=== PATIENT | female | born 1970 | race Caucasian/White ===

== ENCOUNTER → 2017-07-28 | Outpatient (CLI) | payer OTHER | END | disposition home or self-care (01) | LOC: MAMMO 14:31 | DX: Z12.31 Encounter for screening mammogram for malignant neoplasm of breast (principal) | CPT/HCPCS: 77063; 77067 ==

== ENCOUNTER 2020-01-17 14:27 | Inpatient (IN) | payer MEDICAID, OTHER ==
[~2020-01-17] VITALS: Ht 165.1 cm; Wt 113.1 kg
--- NOTE | 2020-01-17 14:45 | RAD ---
CT CODE STROKE HEAD WO Date: 01/17/2020 2:28 PM Clinical Indication: facial droop, arm weakness Comparison: None. Technique: 5 mm axial tomographic images were obtained of the head without contrast. These were viewed on brain and bone windows. One or more of the following dose reduction techniques were utilized: Automated exposure control (AEC), Adjustment of mA and/or kV according to patient size, Use of iterative reconstruction technique such as ASiR, CT scan done according to ALARA and image gently/image wisely Findings: The brain parenchyma is normal in attenuation. No intra- or extra-axial mass or fluid collection. No acute hemorrhage. The ventricles are normal in size, shape, and morphology. The goetz-white matter junction is normal. The subarachnoid cisterns are patent. The visualized paranasal sinuses are normal. The visualized portions of the orbits and globes are normal. The mastoid air cells are clear. The surgical clinical reviewer topogram shows no lytic lesion or fracture. Impression: No acute hemorrhage or large territory goetz-white loss. FOR INTERNAL CODING PURPOSES Critical result: Findings discussed with VENANCIO PIERCE at 01/17/2020 2:40 PM. RESULT CODE: (C) Electronically signed by: Dereck Miranda MD (01/17/2020 2:41 PM) [id number]
[2020-01-17 14:52] LABS: BASO # 0.1 x10^3/uL (0.0-0.2); BASO % 1 % (0-3); EOS # 0.2 x10^3/uL (0.0-0.7); EOS % 2 % (0-3); HEMATOCRIT 50.5 % (36.0-47.0); HEMOGLOBIN 17.6 g/dL (12.0-15.5); LYMPH % 32 % (24-48); MEAN CORPUSCULAR HEMOGLOBIN 32 pg (25-35); MEAN CORPUSCULAR HGB CONC 35 g/dL (31-37); MEAN CORPUSCULAR VOLUME 92 fL (79-100); MONO # 0.5 x10^3/uL (0.0-1.1); MONO % 6 % (0-9); NEUT # 5.4 x10^3/uL (1.8-7.7); NEUT % 58 % (31-73); PLATELET COUNT 284 x10^3/uL (140-400); RED BLOOD COUNT 5.51 x10^6/uL (3.50-5.40); RED CELL DISTRIBUTION WIDTH 12.6 % (11.5-14.5); WHITE BLOOD COUNT 9.3 x10^3/uL (4.0-11.0)
--- NOTE | 2020-01-17 14:53 | PHYS DOC ---
Past Medical History Past Medical History: Anxiety, Depression, High Cholesterol, Hypertension Past Surgical History: No Surgical History Smoking Status: Current Every Day Smoker Alcohol Use: None Drug Use: Marijuana General Adult EDM: Chief Complaint: NEURO SYMPTOMS/DEFICITS HPI: HPI: 49-year-old female presents via EMS as code stroke with report of right arm and leg weakness, slurred speech, and right facial droop that was noticed upon waking at 1330. Patient reports she had gone down for a nap at approximately 1000 and awoke with the symptoms. Denies prior history of similar symptoms. Denies trauma. Denies headache. Denies any fever or chills. Review of Systems: Review of Systems: Constitutional: Denies fever or chills Eyes: Denies redness or eye pain HENT: Denies nasal congestion or sore throat Respiratory: Denies cough or shortness of breath Cardiovascular: Denies chest pain or palpitations GI: Denies abdominal pain, nausea, or vomiting : Denies dysuria or hematuria Musculoskeletal: Denies back pain or joint pain Integument: Denies rash or skin lesions Neurologic: Reports slurred speech, right arm and leg weakness, and right arm and leg numbness. Complete systems were reviewed and found to be within normal limits, except as documented in this note. Current Medications: Current Medications Medications (Trade) Dose Ordered Sig/Diony Start Time Stop Time Status Last Admin Dose Admin Aspirin (Julia Aspirin) 325 mg 1X ONCE 01/17/20 15:00 01/17/20 15:01 UNV Physical Exam: PE: Constitutional: Well developed, well nourished, no acute distress, non-toxic appearance HENT: Normocephalic, atraumatic Eyes: EOMI, PERRL, conjunctiva normal, no discharge Neck: Normal range of motion, no tenderness, supple Lungs & Thorax: No respiratory distress, equal chest rise and fall Abdomen: Soft, no tenderness Skin: Warm, dry, no erythema, no rash Back: No tenderness, no CVA tenderness Extremities: No tenderness, ROM intact, no edema Neurologic: Alert and oriented X 3, mild dysarthria appreciated, mild droop to right corner of mouth, effort but inability to lift both right upper extremity and lower extremity, decreased sensation to right face, arm, and leg noted in comparison to left side Psychologic: Affect anxious, judgment normal EKG: EKG: @ 1449 NSR at 83bpm, NO ST elevation, QRS 86ms, QT/QTc 412/485ms Radiology/Procedures: Radiology/Procedures: PROCEDURE: CT CODE STROKE HEAD WO CT CODE STROKE HEAD WO Date: 01/17/2020 2:28 PM Clinical Indication: facial droop, arm weakness Comparison: None. Technique: 5 mm axial tomographic images were obtained of the head without contrast. These were viewed on brain and bone windows. One or more of the following dose reduction techniques were utilized: Automated exposure control (AEC), Adjustment of mA and/or kV according to patient size, Use of iterative reconstruction technique such as ASiR, CT scan done according to ALARA and image gently/image wisely Findings: The brain parenchyma is normal in attenuation. No intra- or extra-axial mass or fluid collection. No acute hemorrhage. The ventricles are normal in size, shape, and morphology. The goetz-white matter junction is normal. The subarachnoid cisterns are patent. The visualized paranasal sinuses are normal. The visualized portions of the orbits and globes are normal. The mastoid air cells are clear. The turret punch operator topogram shows no lytic lesion or fracture. Impression: No acute hemorrhage or large territory goetz-white loss. FOR INTERNAL CODING PURPOSES Critical result: Findings discussed with VENANCIO PIERCE at 01/17/2020 2:40 PM. RESULT CODE: (C) Electronically signed by: Dereck Miranda MD (01/17/2020 2:41 PM) [id number] PROCEDURE: PORTABLE CHEST 1V INDICATION: Reason: CODE STROKE / Spl. Instructions: / History: COMPARISON: None. FINDINGS: Single view of chest obtained. Cardiac silhouette is enlarged. Mild interstitial prominence bilaterally. Linear opacity left lower lung which could be from scarring or atelectasis. IMPRESSION: * No focal airspace consolidation. Electronically signed by: Gilberto Zavala MD (01/17/2020 3:57 PM) [id number] PROCEDURE: CT ANGIOGRAPHY HEAD AND NECK CT ANGIOGRAPHY HEAD AND NECK History:Reason: right sided weakness/numbness/dysarthria / Spl. Instructions: INJ 100ML OMNI 350 / History: Technique: After bolus of intravenous contrast, volumetric CT data acquisition was acquired of the head and neck. Multiplanar reconstruction images to include MIP and 3-D reconstruction images are submitted. Exposure: One or more of the following individualized dose reduction techniques were utilized for this examination: 1. Automated exposure control 2. Adjustment of the mA and/or kV according to patient size 3. Use of iterative reconstruction technique. Comparison: None Any determination of stenosis is based on NASCET criteria. Head CTA: ICA: Moderate multifocal narrowing of the left internal carotid artery at the cavernous and paraclinoid segments due to calcified plaque. Patent right internal carotid artery. No occlusion. MCA: No stenosis, occlusion or aneurysm. RA: No stenosis, occlusion or aneurysm. SEASONAL CLERK: No stenosis, occlusion or aneurysm. Basilar artery: No stenosis, occlusion or aneurysm. Distal vertebral arteries: No stenosis, occlusion or aneurysm. Partially empty sella. Secretions within the left sphenoid sinus. CT angiogram neck: Aortic arch: Conventional arch anatomy. Common carotid arteries: No stenosis, occlusion or dissection. Internal carotid arteries: No stenosis, occlusion or dissection. Mild calcified plaque within the carotid bifurcations. External carotid arteries: Patent Vertebral arteries: No stenosis, occlusion or dissection. Imaged lung apices are unremarkable. Soft tissues appear normal. Bones: No pathologic osseous lesions. Impression: 1. No arterial occlusion intracranially or within the neck. 2. Moderate multifocal narrowing of the left internal carotid artery cavernous and paraclinoid segments due to atheromatous plaque. 3. Mild atheromatous plaque within the carotid bifurcations. Electronically signed by: Amrik Gannon DO (01/17/2020 4:08 PM) [facility] Course & Med Decision Making: Course & Med Decision Making Pertinent Labs and Imaging studies reviewed. (See chart for details) Patient presents via EMS as code stroke. Patient outside the window of time of TPA as last known normal at 1000 this morning. NIHSS [address] head without acute process. EKG stable. Labs obtained and posted to chart. CTA head and neck without large vessel occlusion. Aspirin provided. Some anxiety component noted. Patient with interval improvement of symptoms during ED stay primarily with right arm and leg strength now with slight drift without touching. Patient also with improvement of slurred speech.. Patient requiring admission for further evaluation and treatment. Discussed with Dr. Cline (hospitalist) who is in agreement with admission. Discussed findings and plan with patient and family, who acknowledge understanding and agreement. Pedro Disclaimer: Pedro Disclaimer: This electronic medical record was generated, in whole or in part, using a voice recognition dictation system. Departure Departure Impression: Primary Impression: CVA (cerebral vascular accident) Qualified Codes: I63.9 - Cerebral infarction, unspecified Disposition: ADMITTED INPATIENT Admitting Physician: CHEKO Bynum) Condition: GUARDED Referrals: UMAIR PHAN (PCP) Justicifation of Admission Dx: Justifications for Admission: Justification of Admission Dx: Yes NIHSS Stroke Scale NIH Stroke Scale: NIH Stroke Scale Response (Comments) Value Level of Consciousness: 0 Alert/Responsive 0 LOC Questions: 0 Answers both correctly 0 LOC Commands: 0 Performs both tasks 0 Best Gaze: 0 Normal 0 Visual: 0 No visual loss 0 Facial Palsy: 1 Minor paralysis 1 Motor - Left Arm 0 No drift 0 Motor - Right Arm 2 Some effort 2 Motor - Left Leg 0 No drift 0 Motor: Right Leg 2 Some effort 2 Limb Ataxia: 0 Absent 0 Sensory: 1 Mid to moderate loss 1 Best Language: 0 Normal 0 Dysathria: 1 Mild to moderate 1 Extinction and Inattention: 0 Normal 0 Total 7 Critical Care Time Critical care time was 30 minutes which includes time at bedside, spent in discussion of patient's care with specialists and/or family members, with interpretation of laboratory and/or radiological studies and is exclusive of procedures. VENANCIO PIERCE DO Jan 17, 2020 14:53
[2020-01-17 14:54] LABS: BILIRUBIN,URINE NEGATIVE (NEG); CLARITY,URINE CLEAR; NITRITE,URINE NEGATIVE (NEG); PH,URINE 6.5 (<5.0-8.0); PROTEIN,URINE NEGATIVE (NEG-TRACE); UROBILINOGEN,URINE 0.2 mg/dL (0.2 mg/dL)
[2020-01-17] MEDS ORDERED: ASPIRIN 325 MG TABLET PO ONE (15:00)
[2020-01-17 15:04] LABS: COLOR,URINE STRAW
[2020-01-17 15:05] LABS: BACTERIA,URINE MODERATE /HPF (0-FEW); SQUAMOUS EPITHELIAL CELL,UR MOD /LPF
[2020-01-17 15:06] LABS: RBC,URINE 0 /HPF (0-2); WBC,URINE 0 /HPF (0-4)
[2020-01-17 15:11] LABS: CALCIUM 9.6 mg/dL (8.5-10.1); CREATININE 0.8 mg/dL (0.6-1.0); GFR 76.6; POTASSIUM 4.1 mmol/L (3.5-5.1)
--- NOTE | 2020-01-17 15:12 | EKG ---
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
[2020-01-17 15:17] LABS: ALBUMIN 3.7 g/dL (3.4-5.0); ALBUMIN/GLOBULIN RATIO 0.9 (1.0-1.7); MAGNESIUM 1.9 mg/dL (1.8-2.4); TOTAL BILIRUBIN 0.8 mg/dL (0.2-1.0); TOTAL PROTEIN 7.7 g/dL (6.4-8.2)
[2020-01-17 15:19] LABS: PREG TEST PT QUAL NEGATIVE (NEG)
[2020-01-17 15:26] LABS: CREATINE KINASE 61 U/L (26-192)
[2020-01-17] MEDS ORDERED: CONTRAST GIVEN. MC PRN (15:30)
[2020-01-17] MEDS ORDERED: IOHEXOL 350 MG/ML 100 ML VIAL. IV ONE (15:30)
--- NOTE | 2020-01-17 16:08 | RAD ---
INDICATION: Reason: CODE STROKE / Spl. Instructions: / History: COMPARISON: None. FINDINGS: Single view of chest obtained. Cardiac silhouette is enlarged. Mild interstitial prominence bilaterally. Linear opacity left lower lung which could be from scarring or atelectasis. IMPRESSION: * No focal airspace consolidation. Electronically signed by: Gilberto Zavala MD (01/17/2020 3:57 PM) [id number]
--- NOTE | 2020-01-17 16:11 | RAD ---
CT ANGIOGRAPHY HEAD AND NECK History:Reason: right sided weakness/numbness/dysarthria / Spl. Instructions: INJ 100ML OMNI 350 / History: Technique: After bolus of intravenous contrast, volumetric CT data acquisition was acquired of the head and neck. Multiplanar reconstruction images to include MIP and 3-D reconstruction images are submitted. Exposure: One or more of the following individualized dose reduction techniques were utilized for this examination: 1. Automated exposure control 2. Adjustment of the mA and/or kV according to patient size 3. Use of iterative reconstruction technique. Comparison: None Any determination of stenosis is based on NASCET criteria. Head CTA: ICA: Moderate multifocal narrowing of the left internal carotid artery at the cavernous and paraclinoid segments due to calcified plaque. Patent right internal carotid artery. No occlusion. MCA: No stenosis, occlusion or aneurysm. RA: No stenosis, occlusion or aneurysm. FINANCIAL COUNSELOR: No stenosis, occlusion or aneurysm. Basilar artery: No stenosis, occlusion or aneurysm. Distal vertebral arteries: No stenosis, occlusion or aneurysm. Partially empty sella. Secretions within the left sphenoid sinus. CT angiogram neck: Aortic arch: Conventional arch anatomy. Common carotid arteries: No stenosis, occlusion or dissection. Internal carotid arteries: No stenosis, occlusion or dissection. Mild calcified plaque within the carotid bifurcations. External carotid arteries: Patent Vertebral arteries: No stenosis, occlusion or dissection. Imaged lung apices are unremarkable. Soft tissues appear normal. Bones: No pathologic osseous lesions. Impression: 1. No arterial occlusion intracranially or within the neck. 2. Moderate multifocal narrowing of the left internal carotid artery cavernous and paraclinoid segments due to atheromatous plaque. 3. Mild atheromatous plaque within the carotid bifurcations. Electronically signed by: Amrik Gannon DO (01/17/2020 4:08 PM) [facility]
[2020-01-17 19:35] VITALS: BP 138/95
--- NOTE | 2020-01-17 20:00 | NUR ---
Pt was admitted from ER with c/o right sided weakness. Pt is A/Ox4, no c/o pain, but is experiencing RUE drift, and is unable to lift her RLE. Pt has no hx of CVA, but unsure how compliant pt is with home medications. Pt is SR on telemetry, VSS, pt was able to verbalize some home medications, but no all, states receiving anxiety/depression meds from [facility]. Bed in low/locked position, call light within reach, will continue to monitor for status changes.
[2020-01-17 23:11] VITALS: BP 142/90
[2020-01-18 02:44] VITALS: BP 142/88
[2020-01-18] MEDS ORDERED: OMEP40CA45 PO (03:02)
[2020-01-18] MEDS ORDERED: LISI-130 PO (03:02)
[2020-01-18] MEDS ORDERED: TRAZ150T49 PO (03:02)
[2020-01-18] MEDS ORDERED: ATOR40TA59 PO (03:02)
[2020-01-18 07:00] VITALS: BP 153/97
[2020-01-18 07:00] LABS: CHOLESTEROL/HDL RATIO 4.1
--- NOTE | 2020-01-18 08:41 | PDOC2 ---
NEUROLOGY CONSULT Date of Service DOS: DATE: 01/18/20 TIME: 08:35 Reason for Consult Reason for Consult: Stroke Referring Physician Referring Physician: Dr. Cline Source Source: Chart review, Patient History of Present Illness History of Present Illness The patient is a 49-year-old right-handed female who felt well 2 nights ago. She woke up at about 9 AM yesterday morning not feeling well so she went back to bed about 10 AM. She woke up at 1:30 PM noticing right arm and leg weakness, difficulty speaking, and right facial droop. She presented to the emergency department. It was determined that she was outside the alteplase window given last known normal 10 AM at the latest. She therefore was not a candidate for alteplase. She does have a history of migraine headaches but did not have a headache yesterday. She says that she is under stress all the time, nothing unusual lately. Her dysarthria, facial droop, and right-sided weakness have all improved. There is no history of stroke, seizure, or head injury. Past Medical History Cardiovascular: HTN, Hyperlipidemia Psych: Anxiety, Depression Past Surgical History Past Surgical History: Tonsillectomy Family History Family History: CVA Social History Social History , on disability due to psychiatric problems, smokes half a pack to a pack of cigarettes per day, occasional marijuana, no alcohol, no other street drugs Current Medications Current Medications Current Medications Aspirin (Julia Aspirin) 325 mg 1X ONCE PO Last administered on 01/17/20at 15:58; Start 01/17/20 at 15:00; Stop 01/17/20 at 15:06; Status DC Iohexol (Omnipaque 350 Mg/ml) 75 ml 1X ONCE IV Last administered on 01/17/20at 15:39; Start 01/17/20 at 15:30; Stop 01/17/20 at 15:31; Status DC Info (CONTRAST GIVEN -- Rx MONITORING) 1 each PRN DAILY PRN MC SEE COMMENTS Last administered on 01/17/20at 19:46; Start 01/17/20 at 15:30; Stop 01/19/20 at 15:29 Active Scripts Active Reported Atorvastatin Calcium 40 Mg Tablet 40 Mg PO HS Trazodone Hcl 150 Mg Tablet 150 Mg PO HS Lisinopril 40 Mg Tablet 40 Mg PO DAILY Omeprazole 40 Mg Capsule.dr 40 Mg PO DAILY Allergies Allergies: Coded Allergies: Penicillins (Verified Allergy, Intermediate, 01/17/20) ceftriaxone (Verified Allergy, Intermediate, 01/17/20) lorazepam (Verified Allergy, Intermediate, 01/17/20) ROS Review of System Negative for weight loss, shortness of breath, chest pain, indigestion, hematochezia, melena, and dysuria. Occasional hot and cold feelings. Full 14- point review of systems is negative. Physical Exam Physical Examination General: Well-developed, well-nourished white female in no acute distress HEENT: Normocephalic andatraumatic. Tympanic membranes clear.Temporal arteriespulsatile and nontender.Fundoscopic exam unremarkable Neck: Supple without bruit, no meningismus Musculoskeletal: Stability:see neurologic. Gait exam:see neurologic. Tone:see neurologic.Strength:see neurologic. Neurological: Mental Status:intact, orientation, memory, attention span/concentration, language, fund of knowledge normal. Cranial Nerves:Pupils equal and reactive to light, extraocular movements areintact, visual tellez are full to co nfrontation. Facial sensation is normal. There is no facial asymmetry. Vestibulo-ocular reflex is intact. Palate elevates and tongue protrudes in midline. All other cranial related problems are negative except as mentioned before.Reflexes:2+ and symmetric with flexor plantar responses. Motor:5-/5 right hemiparesis, no pronator drift, with normal tone and bulk. Coordination:Finger-nose finger and tmos-ke-kpja testing are normal. Rapid alternating movements and fine finger movements are intact. Gait:Unsteady, standing next to bed. Sensory:Normal pinprick, vibration, light touch, proprioception. Vitals VITALS Vital Signs Date Time Temp Pulse Resp B/P (MAP) Pulse Ox O2 Delivery O2 Flow Rate FiO2 01/18/20 07:00 98.0 69 20 153/97 (115) 94 Room Air 98.0 Labs Labs Laboratory Tests Test 01/17/20 14:32 01/17/20 14:40 01/17/20 14:43 01/17/20 20:11 Triglycerides Level 130 mg/dL (0-150) Cholesterol Level 138 mg/dL (0-200) LDL Cholesterol, Calculated 78 mg/dL (0-100) VLDL Cholesterol, Calculated 26 mg/dL (0-40) Non-HDL Cholesterol Calculated 104 mg/dL (0-129) HDL Cholesterol 34 mg/dL (40-60) Cholesterol/HDL Ratio 4.1 White Blood Count 9.3 x10^3/uL (4.0-11.0) Red Blood Count 5.51 x10^6/uL (3.50-5.40) Hemoglobin 17.6 g/dL (12.0-15.5) Hematocrit 50.5 % (36.0-47.0) Mean Corpuscular Volume 92 fL (79-100) Mean Corpuscular Hemoglobin 32 pg (25-35) Mean Corpuscular Hemoglobin Concent 35 g/dL (31-37) Red Cell Distribution Width 12.6 % (11.5-14.5) Platelet Count 284 x10^3/uL (140-400) Neutrophils (%) (Auto) 58 % (31-73) Lymphocytes (%) (Auto) 32 % (24-48) Monocytes (%) (Auto) 6 % (0-9) Eosinophils (%) (Auto) 2 % (0-3) Basophils (%) (Auto) 1 % (0-3) Neutrophils # (Auto) 5.4 x10^3/uL (1.8-7.7) Lymphocytes # (Auto) 3.0 x10^3/uL (1.0-4.8) Monocytes # (Auto) 0.5 x10^3/uL (0.0-1.1) Eosinophils # (Auto) 0.2 x10^3/uL (0.0-0.7) Basophils # (Auto) 0.1 x10^3/uL (0.0-0.2) Prothrombin Time 13.0 SEC (11.7-14.0) Prothromb Time International Ratio 1.0 (0.8-1.1) Activated Partial Thromboplast Time 31 SEC (24-38) Sodium Level 139 mmol/L (136-145) Potassium Level 4.1 mmol/L (3.5-5.1) Chloride Level 102 mmol/L (98-107) Carbon Dioxide Level 30 mmol/L (21-32) Anion Gap 7 (6-14) Blood Urea Nitrogen 9 mg/dL (7-20) Creatinine 0.8 mg/dL (0.6-1.0) Estimated GFR (Cockcroft-Gault) 76.6 BUN/Creatinine Ratio 11 (6-20) Glucose Level 169 mg/dL (70-99) Lactic Acid Level 1.6 mmol/L (0.4-2.0) Calcium Level 9.6 mg/dL (8.5-10.1) Magnesium Level 1.9 mg/dL (1.8-2.4) Total Bilirubin 0.8 mg/dL (0.2-1.0) Aspartate Amino Transf (AST/SGOT) 44 U/L (15-37) Alanine Aminotransferase (ALT/SGPT) 77 U/L (14-59) Alkaline Phosphatase 138 U/L (46-116) Creatine Kinase 61 U/L (26-192) Creatine Kinase MB (Mass) 0.6 ng/mL (0.0-3.6) Creatine Kinase MB Relative Index % (0-4) Troponin I Quantitative < 0.017 ng/mL (0.000-0.055) < 0.017 ng/mL (0.000-0.055) Total Protein 7.7 g/dL (6.4-8.2) Albumin 3.7 g/dL (3.4-5.0) Albumin/Globulin Ratio 0.9 (1.0-1.7) Serum Test, Qualitative Negative (NEG) Urine Collection Type Unknown Urine Color Straw Urine Clarity Clear Urine pH 6.5 (<5.0-8.0) Urine Specific [place] <=1.005 (1.000-1.030) Urine Protein Negative mg/dL (NEG-TRACE) Urine Glucose (UA) Negative mg/dL (NEG) Urine Ketones (Stick) Negative mg/dL (NEG) Urine Blood Negative (NEG) Urine Nitrite Negative (NEG) Urine Bilirubin Negative (NEG) Urine Urobilinogen Dipstick 0.2 mg/dL (0.2 mg/dL) Urine Leukocyte Esterase Negative (NEG) Urine RBC 0 /HPF (0-2) Urine WBC 0 /HPF (0-4) Urine Squamous Epithelial Cells Mod /LPF Urine Bacteria Moderate /HPF (0-FEW) Test 01/17/20 23:13 Troponin I Quantitative < 0.017 ng/mL (0.000-0.055) Laboratory Tests Test 01/17/20 14:32 01/17/20 14:40 01/17/20 14:43 01/17/20 20:11 Triglycerides Level 130 mg/dL (0-150) Cholesterol Level 138 mg/dL (0-200) LDL Cholesterol, Calculated 78 mg/dL (0-100) VLDL Cholesterol, Calculated 26 mg/dL (0-40) Non-HDL Cholesterol Calculated 104 mg/dL (0-129) HDL Cholesterol 34 mg/dL (40-60) Cholesterol/HDL Ratio 4.1 White Blood Count 9.3 x10^3/uL (4.0-11.0) Red Blood Count 5.51 x10^6/uL (3.50-5.40) Hemoglobin 17.6 g/dL (12.0-15.5) Hematocrit 50.5 % (36.0-47.0) Mean Corpuscular Volume 92 fL (79-100) Mean Corpuscular Hemoglobin 32 pg (25-35) Mean Corpuscular Hemoglobin Concent 35 g/dL (31-37) Red Cell Distribution Width 12.6 % (11.5-14.5) Platelet Count 284 x10^3/uL (140-400) Neutrophils (%) (Auto) 58 % (31-73) Lymphocytes (%) (Auto) 32 % (24-48) Monocytes (%) (Auto) 6 % (0-9) Eosinophils (%) (Auto) 2 % (0-3) Basophils (%) (Auto) 1 % (0-3) Neutrophils # (Auto) 5.4 x10^3/uL (1.8-7.7) Lymphocytes # (Auto) 3.0 x10^3/uL (1.0-4.8) Monocytes # (Auto) 0.5 x10^3/uL (0.0-1.1) Eosinophils # (Auto) 0.2 x10^3/uL (0.0-0.7) Basophils # (Auto) 0.1 x10^3/uL (0.0-0.2) Prothrombin Time 13.0 SEC (11.7-14.0) Prothromb Time International Ratio 1.0 (0.8-1.1) Activated Partial Thromboplast Time 31 SEC (24-38) Sodium Level 139 mmol/L (136-145) Potassium Level 4.1 mmol/L (3.5-5.1) Chloride Level 102 mmol/L (98-107) Carbon Dioxide Level 30 mmol/L (21-32) Anion Gap 7 (6-14) Blood Urea Nitrogen 9 mg/dL (7-20) Creatinine 0.8 mg/dL (0.6-1.0) Estimated GFR (Cockcroft-Gault) 76.6 BUN/Creatinine Ratio 11 (6-20) Glucose Level 169 mg/dL (70-99) Lactic Acid Level 1.6 mmol/L (0.4-2.0) Calcium Level 9.6 mg/dL (8.5-10.1) Magnesium Level 1.9 mg/dL (1.8-2.4) Total Bilirubin 0.8 mg/dL (0.2-1.0) Aspartate Amino Transf (AST/SGOT) 44 U/L (15-37) Alanine Aminotransferase (ALT/SGPT) 77 U/L (14-59) Alkaline Phosphatase 138 U/L (46-116) Creatine Kinase 61 U/L (26-192) Creatine Kinase MB (Mass) 0.6 ng/mL (0.0-3.6) Creatine Kinase MB Relative Index % (0-4) Troponin I Quantitative < 0.017 ng/mL (0.000-0.055) < 0.017 ng/mL (0.000-0.055) Total Protein 7.7 g/dL (6.4-8.2) Albumin 3.7 g/dL (3.4-5.0) Albumin/Globulin Ratio 0.9 (1.0-1.7) Serum Test, Qualitative Negative (NEG) Urine Collection Type Unknown Urine Color Straw Urine Clarity Clear Urine pH 6.5 (<5.0-8.0) Urine Specific [place] <=1.005 (1.000-1.030) Urine Protein Negative mg/dL (NEG-TRACE) Urine Glucose (UA) Negative mg/dL (NEG) Urine Ketones (Stick) Negative mg/dL (NEG) Urine Blood Negative (NEG) Urine Nitrite Negative (NEG) Urine Bilirubin Negative (NEG) Urine Urobilinogen Dipstick 0.2 mg/dL (0.2 mg/dL) Urine Leukocyte Esterase Negative (NEG) Urine RBC 0 /HPF (0-2) Urine WBC 0 /HPF (0-4) Urine Squamous Epithelial Cells Mod /LPF Urine Bacteria Moderate /HPF (0-FEW) Test 01/17/20 23:13 Troponin I Quantitative < 0.017 ng/mL (0.000-0.055) Images Images CT CODE STROKE HEAD WO Date: 01/17/2020 2:28 PM Clinical Indication: facial droop, arm weakness Comparison: None. Technique: 5 mm axial tomographic images were obtained of the head without contrast. These were viewed on brain and bone windows. One or more of the following dose reduction techniques were utilized: Automated exposure control (AEC), Adjustment of mA and/or kV according to patient size, Use of iterative reconstruction technique such as ASiR, CT scan done according to ALARA and image gently/image wisely Findings: The brain parenchyma is normal in attenuation. No intra- or extra-axial mass or fluid collection. No acute hemorrhage. The ventricles are normal in size, shape, and morphology. The goetz-white matter junction is normal. The subarachnoid cisterns are patent. The visualized paranasal sinuses are normal. The visualized portions of the orbits and globes are normal. The mastoid air cells are clear. The talent scout topogram shows no lytic lesion or fracture. Impression: No acute hemorrhage or large territory goetz-white loss. CT ANGIOGRAPHY HEAD AND NECK History:Reason: right sided weakness/numbness/dysarthria / Spl. Instructions: INJ 100ML OMNI 350 / History: Technique: After bolus of intravenous contrast, volumetric CT data acquisition was acquired of the head and neck. Multiplanar reconstruction images to include MIP and 3-D reconstruction images are submitted. Exposure: One or more of the following individualized dose reduction techniques were utilized for this examination: 1. Automated exposure control 2. Adjustment of the mA and/or kV according to patient size 3. Use of iterative reconstruction technique. Comparison: None Any determination of stenosis is based on NASCET criteria. Head CTA: ICA: Moderate multifocal narrowing of the left internal carotid artery at the cavernous and paraclinoid segments due to calcified plaque. Patent right internal carotid artery. No occlusion. MCA: No stenosis, occlusion or aneurysm. RA: No stenosis, occlusion or aneurysm. TECHNICAL LABORATORY ASST: No stenosis, occlusion or aneurysm. Basilar artery: No stenosis, occlusion or aneurysm. Distal vertebral arteries: No stenosis, occlusion or aneurysm. Partially empty sella. Secretions within the left sphenoid sinus. CT angiogram neck: Aortic arch: Conventional arch anatomy. Common carotid arteries: No stenosis, occlusion or dissection. Internal carotid arteries: No stenosis, occlusion or dissection. Mild calcified plaque within the carotid bifurcations. External carotid arteries: Patent Vertebral arteries: No stenosis, occlusion or dissection. Imaged lung apices are unremarkable. Soft tissues appear normal. Bones: No pathologic osseous lesions. Impression: 1. No arterial occlusion intracranially or within the neck. 2. Moderate multifocal narrowing of the left internal carotid artery cavernous and paraclinoid segments due to atheromatous plaque. 3. Mild atheromatous plaque within the carotid bifurcations. Assessment/Plan Assessment/Plan Impression: Left hemispheric stroke, but atypical features including currently lack of a facial droop and pronator drift. Note normal head CT and CT angiogram head and neck History of migraines, but she did not have a headache yesterday that would explain this Hypertension, hyperlipidemia, psychiatric issues to the point of disability. Recommendations: Brain MRI Echocardiogram Aspirin Await lipid profile Rehabilitation modalities She may need inpatient rehab depending on her course. I offered reassurance to the patient. Thank you for letting me help with the patient's care. LINDSAY MICHEL MD Jan 18, 2020 08:41
[2020-01-18] MEDS ORDERED: ACETAMINOPHEN 650 MG SUPP.RECT. PR PRN (08:45)
[2020-01-18] MEDS ORDERED: ASPIRIN RECTAL 300 MG SUPP. PR PRN (08:45)
[2020-01-18] MEDS ORDERED: ACETAMINOPHEN 325 MG TABLET. PO PRN (08:45)
[2020-01-18] MEDS ORDERED: PRAZ5CAP2 PO (08:56)
[2020-01-18] MEDS ORDERED: CLONAZEPAM1 MG PO (08:56)
[2020-01-18] MEDS ORDERED: VILA40TA PO (08:56)
[2020-01-18] MEDS ORDERED: LURA60TA PO (08:56)
[2020-01-18] MEDS: clonazePAM 0.5 MG TABLET PO PRN ×2 (10:18→18:18)
[2020-01-18] MEDS: LISINOPRIL 20 MG TABLET PO SCH (10:18)
[2020-01-18] MEDS: PANTOPRAZOLE 40 MG TABLET.DR. PO SCH (10:18)
--- NOTE | 2020-01-18 10:23 | RAD ---
INDICATION: Right hemiparesis COMPARISON: CT from one day prior TECHNIQUE: Multiplanar, multisequence MRI images obtained through the brain. FINDINGS: No midline shift. Basilar cistern patent. Small focus of restricted diffusion within the left cerebral hemisphere adjacent to left lateral ventricle. This also involves a portion of the internal and external capsule. There is associated edema. Ventricles and sulci are within normal limits in size for the patient's age. No intracranial hemorrhage or gross mass seen. No retro-orbital hematoma. Paranasal sinuses are unremarkable. Partially empty sella with the pituitary flattened along the inferior aspect. IMPRESSION: 1. Restricted diffusion is identified within the left cerebral hemisphere adjacent to left lateral ventricle with associated edema. This can be seen with acute ischemia. No evidence of hemorrhagic transformation at this time. Report was called to the patient's floor at 10:15 AM on date of exam Electronically signed by: Gilberto Zavala MD (01/18/2020 10:21 AM) [id number]
[2020-01-18 10:33] VITALS: BP 151/105
--- NOTE | 2020-01-18 12:13 | CARD ---
MR#: [id number] Date of Study: 01/18/2020 Ordering Physician: LINDSAY MICHEL, Referring Physician: LINDSAY MICHEL, Tech: Kaylin Lee RDCS APPROVED REPORT EXAM: Two-dimensional and M-mode echocardiogram with Doppler and color Doppler. Other Information Quality : Good INDICATION CVA/TIA Echo Enhancing Agent Agent/Amount Used: Agitated Saline 8mL 2D DIMENSIONS RVDd3.1 (2.9-3.5cm)Left Atrium(2D)4.3 (1.6-4.0cm) IVSd1.1 (0.7-1.1cm)Aortic Root(2D)3.2 (2.0-3.7cm) LVDd4.7 (3.9-5.9cm)LVOT Diameter2.2 (1.8-2.4cm) PWd1.1 (0.7-1.1cm)LVDs1.9 (2.5-4.0cm) FS (%) 30.0 %SV91.5 ml LVEF(%)60.0 (>50%) Aortic Valve AoV Peak Bradley.133.9cm/sAoV VTI21.3cm AO Peak GR.7.2mmHgLVOT VTI 17.60cm AO Mean GR.3mmHgAVA (VTI)3.28cm2 Mitral Valve MV E Vwrxhxrk39.5cm/sMV DECEL [id number] MV A Xhyajcdf37.7cm/sE/A Ratio0.8 TDI Lateral E' P. V6.44cm/sMedial E' P. V7.59cm/s E/Lateral E'9.4E/Medial E'8.0 Pulmonary Vein S1 Gljywnjv33.6cm/sS2 Xmseaxdi61.82cm/s D2 Bajyvrlr32.8cm/s LEFT VENTRICLE The left ventricle is normal size. There is normal left ventricular wall thickness. The left ventricu lar systolic function is normal. The Ejection Fraction is 60-65%. There is normal LV segmental wall m otion. The left ventricular diastolic function and filling is normal for age. RIGHT VENTRICLE The right ventricle is normal size. The right ventricular systolic function is normal. ATRIA The left atrium is mildly dilated. The right atrium size is normal. The interatrial septum is intact with no evidence for an atrial septal defect or patent foramen ovale as noted on 2-D or Doppler imagi ng. Injection of bubbles documented no interatrial shunt. AORTIC VALVE The aortic valve is normal in structure and function. Doppler and Color Flow revealed no significant aortic regurgitation. There is no significant aortic valvular stenosis. MITRAL VALVE The mitral valve is normal in structure and function. There is no evidence of mitral valve prolapse. There is no mitral valve stenosis. Doppler and Color Flow revealed no mitral valve regurgitation note d. TRICUSPID VALVE The tricuspid valve is normal in structure and function. Doppler and Color Flow revealed no tricuspid valve regurgitation noted. There is no tricuspid valve stenosis. PULMONIC VALVE The pulmonary valve is normal in structure and function. Doppler and Color Flow revealed trace pulmon ic valvular regurgitation. There is no pulmonic valvular stenosis. GREAT VESSELS The aortic root is normal in size. The ascending aorta is normal in size. The IVC is normal in size a nd collapses >50% with inspiration. PERICARDIAL EFFUSION There is no evidence of significant pericardial effusion. Critical Notification Critical Value: No <Conclusion> The left ventricular systolic function is normal. The Ejection Fraction is 60-65%. There is normal LV segmental wall motion. There is no evidence of significant pericardial effusion. Injection of bubbles documented no interatrial shunt. Signed by : Shoaib Jensen, Electronically Approved : 01/18/2020 12:13:16
--- NOTE | 2020-01-18 13:59 | NUR ---
SS following for discharge planning. SS reviewed pt chart and discussed with pt RN. Pt is from home with spouse and is currently on room air. PT recommended acute rehabilitation. Pt is self pay and has no benefits for prison unit or acute rehabilitation at this time. SS will continue to follow for discharge planning.
[2020-01-18] MEDS: diphenhydrAMINE HCL 25 MG CAPSULE PO PRN ×2 (14:00→20:27)
[2020-01-18 14:37] VITALS: BP 132/81
--- NOTE | 2020-01-18 15:01 | CONS ---
DATE OF CONSULTATION: 01/18/2020 ATTENDING PHYSICIAN: Riley Cline MD REASON FOR CONSULTATION: The patient was seen at the request of Dr. Torres for rehab evaluation. HISTORY OF PRESENT ILLNESS: This is a 49-year-old right-handed female, on social security disability secondary to anxiety, depression, also with known hypertension, hyperlipidemia. She woke up on the morning of 01/17/2020, not feeling well, so she went back to bed around 10:00 a.m., woke up at 1:30 p.m., noticing her right arm and leg weakness, difficulty speaking and right facial droop. She was seen in the Emergency Room. She was outside the alteplase window given last known normal being around 10:00 a.m. The patient was therefore felt not a candidate for alteplase. The patient also has a history of migraine headaches, but she did not have any headache. Yesterday, her dysarthria, facial droop and right-sided weakness all improved when Dr. Torres saw her on in the hospital. The patient had no history of previous seizure, stroke, or head injury. The patient with known ALLERGIES TO PENICILLIN, CEFTRIAXONE, LORAZEPAM. She lives in [place], [place] with her who is also on social security disability. No steps to enter the house other than the basement where washer and dryer are located. The patient smokes half a pack of cigarettes per day, also takes occasional marijuana. No alcohol or street drugs. The patient since admission had radiological studies. Initial CT scan of the brain failed to reveal any acute abnormality. Chest x-ray, no acute abnormalities. CTA of head and neck. She had CT scan of her brain, which was normal. CT angiogram of head and neck revealed no occlusion, moderate multifocal narrowing of left internal carotid artery cavernous and paraclinoid segments due to mild atheromatous plaque within the carotid bifurcations. MRI scan of the brain done this morning revealed restricted diffusion identified within the left cerebral hemisphere adjacent to the left lateral ventricle with associated edema, indicating acute ischemia without any hemorrhage. The patient denies any difficulty with swallowing, bowel or bladder control or speech or cognition, but admits that she is more depressed today and teary eyed. PHYSICAL EXAMINATION: Physical examination today revealed young female. The patient is alert, oriented to time, place and person, follows commands appropriately, moves all 4 extremities voluntarily. She is cooperative during the examination. The patient had no obvious visual field cut or basal asymmetry noted. She had mild incoordination using her right upper extremity. Overall muscle strength is 4+/5 to 5/5 grade with relatively increased weakness in the right hand intrinsic muscles and she had significant weakness of right foot dorsi flexors and evertors and mild weakness of right hip abductors and right knee flexors. Deep tendon reflexes are 1-2+ and symmetrical and she had equal perception of touch and pinprick sensation bilaterally. Plantar reflex is equivocal on the right side and flexor on the left side. She is obese. She has been getting up and walking with a roller walker under supervision and physical therapy noted her walking a little bit longer this afternoon using a roller walker when compared to in the morning. Her skin is intact at this time. She had pain-free range of motion of all four extremity joints. ASSESSMENT: Young female with known hypertension, anxiety, depression, hyperlipidemia with new onset left cerebral infarct with: 1. Right hemiparesis and right foot drop. 2. Obesity. RECOMMENDATIONS: Agree with the plan for physical therapy and occupational therapy to help with her deficits. Unfortunately, she does not have any health insurance to consider transfer to acute inpatient rehab unit to see whether they can except her as a jd care to obtain her right ankle foot brace to support her right foot drop. Dr. Torres, I appreciate asking me to participate in the care of this interesting patient. I will be glad to follow her with you as needed for her rehabilitation. LORENA QUINTANA MD DR: LAUREN/amaris JOB#: [id number] / [id number]
--- NOTE | 2020-01-18 15:23 | NUR ---
SS following up with discharge planning. SS reviewed pt chart and discussed with pt RN. Pt reported having [employer] insurance. SS discussed with [employer] and Samantha in registration and pt's insurance was found to be inactive. Pt is truly self pay. Pt has disability and [employer] to assist with Medicaid application. SS contacted [facility] and asked about self pay bed for pt. It was requested that pt have a couple more days of therapy at [facility] to see if pt improves. [facility] reported that they will reassess on Wednesday. SS contacted [facility] and was notified that no self pay beds are available at this time. SS will continue to follow for discharge planning.
--- NOTE | 2020-01-18 16:44 | PDOC1 ---
History and Physical Date of Admission Date of Admission DATE: 01/18/20 TIME: 16:31 Identification/Chief Complaint Chief Complaint Right-sided weakness Source Source: Patient History of Present Illness History of Present Illness Patient is a 49-year-old female with past medical history of hypertension and hyperlipidemia, who presents with sudden onset of right-sided weakness that began on the date of admission. Patient reports right-sided arm and leg weakness, with associated right-sided facial droop. She immediately contacted EMS, and did not take any other medications other than what was administered to her in route to the hospital. At the time of arrival patient was outside the window for TPA. On examination she does admit to resolution of most of her symptoms. She still admits to some right foot weakness and muscle spasms in her legs and back. She denies any numbness or tingling. Past Medical History Cardiovascular: HTN, Hyperlipidemia Psych: Anxiety, Depression Past Surgical History Past Surgical History: Tonsillectomy Family History Family History: Parent (Breast cancer) Social History Smoke: 1 pack per day ALCOHOL: none Drugs: None Current Problem List Problem List Problems Medical Problems: (1) CVA (cerebral vascular accident) Status: Acute Current Medications Current Medications Current Medications Aspirin (Julia Aspirin) 325 mg 1X ONCE PO Last administered on 01/17/20at 15:58 ; Start 01/17/20 at 15:00; Stop 01/17/20 at 15:06; Status DC Iohexol (Omnipaque 350 Mg/ml) 75 ml 1X ONCE IV Last administered on 01/17/20at 15:39; Start 01/17/20 at 15:30; Stop 01/17/20 at 15:31; Status DC Info (CONTRAST GIVEN -- Rx MONITORING) 1 each PRN DAILY PRN MC SEE COMMENTS Last administered on 01/17/20at 19:46; Start 01/17/20 at 15:30; Stop 01/19/20 at 15:29 Acetaminophen (Tylenol) 650 mg PRN Q6HRS PRN PO TEMP > 100.4F; Start 01/18/20 at 08:45 Acetaminophen (Tylenol Supp) 650 mg PRN Q4HRS PRN [place] TEMP > 100.4F; Start 01/18/20 at 08:45 Aspirin (Ecotrin) 325 mg DAILYWBKFT PO ; Start 01/19/20 at 08:00 Aspirin (Aspirin Rectal Supp) 300 mg PRN DAILY PRN [place] IF UNABLE TO TAKE PO; Start 01/18/20 at 08:45 Atorvastatin Calcium (Lipitor) 40 mg HS PO ; Start 01/18/20 at 21:00 Lisinopril (Prinivil) 40 mg DAILY PO Last administered on 01/18/20at 10:18; Start 01/18/20 at 10:30 Clonazepam (KlonoPIN) 0.5 mg PRN TID PRN PO ANXIETY / AGITATION Last administered on 01/18/20at 10:18; Start 01/18/20 at 09:45 Non-Formulary Medication (Lurasidone Hcl (Latuda)) 60 mg DAILY PO ; Start 01/19/20 at 09:00; Status UNV Pantoprazole Sodium (Protonix) 40 mg DAILYAC PO Last administered on 01/18/20at 10:18; Start 01/18/20 at 10:30 Prazosin HCl (Minipress) 5 mg QHS PO ; Start 01/18/20 at 21:00 Trazodone HCl (Desyrel) 150 mg QHS PO ; Start 01/18/20 at 21:00 Non-Formulary Medication (Vilazodone Hydrochloride (Viibryd)) 1 tab DAILY PO ; Start 01/19/20 at 09:00; Status UNV Diphenhydramine HCl (Benadryl) 25 mg PRN Q6HRS PRN PO ITCHING Last administered on 01/18/20at 14:00; Start 01/18/20 at 13:30 Active Scripts Active Reported Viibryd (Vilazodone Hydrochloride) 40 Mg Tablet 1 Tab PO DAILY Latuda (Lurasidone Hcl) 60 Mg Tablet 60 Mg PO DAILY Clonazepam 1 Mg Tablet 0.5 Mg PO PRN TID PRN Prazosin Hcl 5 Mg Capsule 1 Cap PO QHS Atorvastatin Calcium 40 Mg Tablet 40 Mg PO HS Trazodone Hcl 150 Mg Tablet 150 Mg PO HS Lisinopril 40 Mg Tablet 40 Mg PO DAILY Omeprazole 40 Mg Capsule.dr 40 Mg PO DAILY Allergies Allergies: Coded Allergies: Penicillins (Verified Allergy, Intermediate, 01/17/20) ceftriaxone (Verified Allergy, Intermediate, 01/17/20) lorazepam (Verified Allergy, Intermediate, 01/17/20) ROS General: No: Chills, Night Sweats, Fatigue, Malaise PSYCHOLOGICAL ROS: No: Anxiety, Behavioral Disorder, Concentration difficultie, Decreased libido, Depression, Disorientation, Hallucinations, Hostility, Irritablity, Memory difficulties, Mood Swings, Obsessive thoughts, Physical abuse, Sexual abuse, Sleep disturbances, Suicidal ideation, Other Eyes: No Blurry vision, No Decreased vision, No Double vision, No Dry eyes, No Excessive tearing, No Eye Pain, No Itchy Eyes, No Loss of vision, No Photophobia, No Scotomata, No Uses contacts, No Uses glasses, No Other HEENT: No: Heacaches, Visual Changes, Hearing change, Nasal congestion, Nasal discharge, Oral lesions, Sinus pain, Sore Throat, Epistaxis, Sneezing, Snoring, Tinnitus, Vertigo, Vocal changes, Other ALLERGY AND IMMUNOLOGY: YES: Seasonal Allergies; No: Itchy/Watery Eyes Hematological and Lymphatic: No: Bleeding Problems, Blood Clots, Blood Transfusions, Brusing, Night Sweats, Pallor, Swollen Lymph Nodes, Other Respiratory: No: Cough, Hemoptysis, Orthopnea, Pleuritic Pain, Shortness of breath, SOB with excertion, Sputum Changes, Stridor, Tachypnea, Wheezing, Other Cardiovascular: No Chest Pain, No Palpitations, No Orthopnea, No Paroxysmal No c. Dyspnea, No Edema, No Lt Headedness, No Other Gastrointestinal: No Nausea, No Vomiting, No Abdominal Pain, No Diarrhea, No Constipation, No Melena, No Hematochezia, No Other Genitourinary: No Dysuria, No Frequency, No Incontinence, No Hematuria, No Retention, No Discharge, No Urgency, No Pain, No Flank Pain, No Other, No , No , No , No , No , No , No Musculoskeletal: Yes Gait Disturbance, Yes Muscular Weakness; No Joint Pain, No Joint Stiffness Neurological: Yes Weakness; No Behavorial Changes, No Bowel/Bladder ControlChng, No Confusion, No Dizziness, No Gait Disturbance, No Headaches, No Impaired Coord/balance, No Memory Loss, No Numbness/Tingling, No Seizures, No Speech Problems, No Tremors, No Visual Changes Skin: No Dry Skin, No Eczema, No Hair Changes, No Lumps, No Mole Changes, No Mottling, No Nail Changes, No Pruritus, No Rash, No Skin Lesion Changes Physical Exam General: Alert, Oriented X3, Cooperative, No acute distress HEENT: PERRLA Lungs: Clear to auscultation, Normal air movement Heart: RRR, no murmurs Cardiovascular: S1, S2 Abdomen: Normal bowel sounds, Soft, No tenderness, No hepatosplenomegaly, No masses Extremities: No clubbing, No cyanosis, No edema, Normal pulses, No tenderness/swelling Skin: No rashes, No breakdown, No significant lesion Neuro: Strength at 5/5 X4 ext, Normal tone, Sensation intact, Cranial nerves 3- 12 NL Vitals Vitals Vital Signs Date Time Temp Pulse Resp B/P (MAP) Pulse Ox O2 Delivery O2 Flow Rate FiO2 01/18/20 14:37 98.0 67 20 132/81 (98) 95 Room Air 98.0 Labs Labs Laboratory Tests Test 01/17/20 14:32 01/17/20 14:40 01/17/20 14:43 01/17/20 20:11 Triglycerides Level 130 mg/dL (0-150) Cholesterol Level 138 mg/dL (0-200) LDL Cholesterol, Calculated 78 mg/dL (0-100) VLDL Cholesterol, Calculated 26 mg/dL (0-40) Non-HDL Cholesterol Calculated 104 mg/dL (0-129) HDL Cholesterol 34 mg/dL (40-60) Cholesterol/HDL Ratio 4.1 White Blood Count 9.3 x10^3/uL (4.0-11.0) Red Blood Count 5.51 x10^6/uL (3.50-5.40) Hemoglobin 17.6 g/dL (12.0-15.5) Hematocrit 50.5 % (36.0-47.0) Mean Corpuscular Volume 92 fL (79-100) Mean Corpuscular Hemoglobin 32 pg (25-35) Mean Corpuscular Hemoglobin Concent 35 g/dL (31-37) Red Cell Distribution Width 12.6 % (11.5-14.5) Platelet Count 284 x10^3/uL (140-400) Neutrophils (%) (Auto) 58 % (31-73) Lymphocytes (%) (Auto) 32 % (24-48) Monocytes (%) (Auto) 6 % (0-9) Eosinophils (%) (Auto) 2 % (0-3) Basophils (%) (Auto) 1 % (0-3) Neutrophils # (Auto) 5.4 x10^3/uL (1.8-7.7) Lymphocytes # (Auto) 3.0 x10^3/uL (1.0-4.8) Monocytes # (Auto) 0.5 x10^3/uL (0.0-1.1) Eosinophils # (Auto) 0.2 x10^3/uL (0.0-0.7) Basophils # (Auto) 0.1 x10^3/uL (0.0-0.2) Prothrombin Time 13.0 SEC (11.7-14.0) Prothromb Time International Ratio 1.0 (0.8-1.1) Activated Partial Thromboplast Time 31 SEC (24-38) Sodium Level 139 mmol/L (136-145) Potassium Level 4.1 mmol/L (3.5-5.1) Chloride Level 102 mmol/L (98-107) Carbon Dioxide Level 30 mmol/L (21-32) Anion Gap 7 (6-14) Blood Urea Nitrogen 9 mg/dL (7-20) Creatinine 0.8 mg/dL (0.6-1.0) Estimated GFR (Cockcroft-Gault) 76.6 BUN/Creatinine Ratio 11 (6-20) Glucose Level 169 mg/dL (70-99) Lactic Acid Level 1.6 mmol/L (0.4-2.0) Calcium Level 9.6 mg/dL (8.5-10.1) Magnesium Level 1.9 mg/dL (1.8-2.4) Total Bilirubin 0.8 mg/dL (0.2-1.0) Aspartate Amino Transf (AST/SGOT) 44 U/L (15-37) Alanine Aminotransferase (ALT/SGPT) 77 U/L (14-59) Alkaline Phosphatase 138 U/L (46-116) Creatine Kinase 61 U/L (26-192) Creatine Kinase MB (Mass) 0.6 ng/mL (0.0-3.6) Creatine Kinase MB Relative Index % (0-4) Troponin I Quantitative < 0.017 ng/mL (0.000-0.055) < 0.017 ng/mL (0.000-0.055) Total Protein 7.7 g/dL (6.4-8.2) Albumin 3.7 g/dL (3.4-5.0) Albumin/Globulin Ratio 0.9 (1.0-1.7) Serum Test, Qualitative Negative (NEG) Urine Collection Type Unknown Urine Color Straw Urine Clarity Clear Urine pH 6.5 (<5.0-8.0) Urine Specific [place] <=1.005 (1.000-1.030) Urine Protein Negative mg/dL (NEG-TRACE) Urine Glucose (UA) Negative mg/dL (NEG) Urine Ketones (Stick) Negative mg/dL (NEG) Urine Blood Negative (NEG) Urine Nitrite Negative (NEG) Urine Bilirubin Negative (NEG) Urine Urobilinogen Dipstick 0.2 mg/dL (0.2 mg/dL) Urine Leukocyte Esterase Negative (NEG) Urine RBC 0 /HPF (0-2) Urine WBC 0 /HPF (0-4) Urine Squamous Epithelial Cells Mod /LPF Urine Bacteria Moderate /HPF (0-FEW) Test 01/17/20 23:13 Troponin I Quantitative < 0.017 ng/mL (0.000-0.055) Laboratory Tests Test 01/17/20 20:11 01/17/20 23:13 Troponin I Quantitative < 0.017 ng/mL (0.000-0.055) < 0.017 ng/mL (0.000-0.055) Images Images INDICATION: Right hemiparesis COMPARISON: CT from one day prior TECHNIQUE: Multiplanar, multisequence MRI images obtained through the brain. FINDINGS: No midline shift. Basilar cistern patent. Small focus of restricted diffusion within the left cerebral hemisphere adjacent to left lateral ventricle. This also involves a portion of the internal and external capsule. There is associated edema. Ventricles and sulci are within normal limits in size for the patient's age. No intracranial hemorrhage or gross mass seen. No retro-orbital hematoma. Paranasal sinuses are unremarkable. Partially empty sella with the pituitary flattened along the inferior aspect. IMPRESSION: 1. Restricted diffusion is identified within the left cerebral hemisphere adjacent to left lateral ventricle with associated edema. This can be seen with acute ischemia. No evidence of hemorrhagic transformation at this time. Report was called to the patient's floor at 10:15 AM on date of exam VTE Prophylaxis Ordered VTE Prophylaxis Devices: Yes VTE Pharmacological Prophylaxi: No Assessment/Plan Assessment/Plan Left-sided CVA Plan: MRI obtained on the 01/18/20 of admission shows left cerebral hemisphere ischemia. Consult placed to neurology and rehab. Discussed with patient that she will likely need inpatient rehab, and some adjustment to her medications. VTE prophylaxis. Full code. Justifications for Admission Other Justification CALEB REYNOSO MD Jan 18, 2020 16:44
[2020-01-18 19:00] VITALS: BP 146/90
[2020-01-18] MEDS ORDERED: traZODone 50 MG TABLET. PO SCH (21:00)
[2020-01-18] MEDS ORDERED: PRAZOSIN 1 MG CAPSULE. PO SCH (21:00)
[2020-01-18] MEDS ORDERED: ATORVASTATIN CALCIUM 40 MG TABLET. PO SCH (21:00)
[2020-01-18 22:56] VITALS: BP 118/71
[2020-01-19 03:04] VITALS: BP 118/71
[2020-01-19] MEDS: clonazePAM 0.5 MG TABLET PO PRN ×2 (03:21→09:53)
[2020-01-19] MEDS: diphenhydrAMINE HCL 25 MG CAPSULE PO PRN ×2 (03:22→09:53)
[2020-01-19 05:23] LABS: BASO # 0.1 x10^3/uL (0.0-0.2); BASO % 1 % (0-3); EOS # 0.2 x10^3/uL (0.0-0.7); EOS % 1 % (0-3); HEMATOCRIT 46.7 % (36.0-47.0); HEMOGLOBIN 15.8 g/dL (12.0-15.5); LYMPH # 2.9 x10^3/uL (1.0-4.8); LYMPH % 23 % (24-48); MEAN CORPUSCULAR HEMOGLOBIN 31 pg (25-35); MEAN CORPUSCULAR HGB CONC 34 g/dL (31-37); MEAN CORPUSCULAR VOLUME 92 fL (79-100); MONO # 0.9 x10^3/uL (0.0-1.1); MONO % 7 % (0-9); NEUT # 8.8 x10^3/uL (1.8-7.7); NEUT % 68 % (31-73); PLATELET COUNT 270 x10^3/uL (140-400); RED CELL DISTRIBUTION WIDTH 12.8 % (11.5-14.5); WHITE BLOOD COUNT 12.8 x10^3/uL (4.0-11.0)
[2020-01-19 05:49] LABS: CREATININE 0.9 mg/dL (0.6-1.0); GFR 66.8; POTASSIUM 3.5 mmol/L (3.5-5.1)
[2020-01-19 07:00] VITALS: BP 126/76
[2020-01-19] MEDS ORDERED: ASPIRIN ENTERIC COATED 325 MG TABLET.DR. PO SCH (08:00)
[2020-01-19] MEDS: PANTOPRAZOLE 40 MG TABLET.DR. PO SCH (08:32)
[2020-01-19] MEDS: LISINOPRIL 20 MG TABLET PO SCH (08:32)
[2020-01-19] MEDS ORDERED: NON FORMULARY ITEM (Lurasidone Hcl (Latuda) 60 MG) PO SCH (09:00)
[2020-01-19] MEDS ORDERED: NON FORMULARY ITEM (Vilazodone Hydrochloride (Viibryd) 1 TAB) PO SCH (09:00)
--- NOTE | 2020-01-19 09:15 | PDOC ---
PROGRESS NOTES Assessment Problems Medical Problems: (1) CVA (cerebral vascular accident) Status: Acute Left hemispheric stroke, a little worse today History of migraines Hypertension, hyperlipidemia, psychiatric issues to the point of disability. Plan Aspirin Statin Rehabilitation modalities No insurance benefits, home with home health when stable Follow-up with internal medicine Subjective No complaints Objective Vital Signs Date Time Temp Pulse Resp B/P (MAP) Pulse Ox O2 Delivery O2 Flow Rate FiO2 01/19/20 08:32 105 126/76 01/19/20 07:00 98.2 20 93 Room Air 98.2 l Intake and Output 01/19/20 06:59 Intake Total 1270 ml Output Total 1500 ml Balance -230 ml Intake Oral 1270 ml Output Urine Total 1500 ml # Voids 1 # Bowel Movements 1 PHYSICAL EXAM Physical Exam: Alert. Oriented to time, place and person. PERRL. EOMI. CN: right central facial weakness Muscle tone: normal. Muscle strength: 4/5 right hemiparesis DTR: 2+ Plantar reflex: flexor Gait: not examined in bed. Sensory exam: no abnormal findings. No cerebellar signs elicited. Review of Relevant I have reviewed the following items augusto (where applicable) has been applied. Labs Laboratory Tests Test 01/17/20 14:32 01/17/20 14:40 01/17/20 14:43 01/17/20 20:11 Triglycerides Level 130 mg/dL (0-150) Cholesterol Level 138 mg/dL (0-200) LDL Cholesterol, Calculated 78 mg/dL (0-100) VLDL Cholesterol, Calculated 26 mg/dL (0-40) Non-HDL Cholesterol Calculated 104 mg/dL (0-129) HDL Cholesterol 34 mg/dL (40-60) Cholesterol/HDL Ratio 4.1 White Blood Count 9.3 x10^3/uL (4.0-11.0) Red Blood Count 5.51 x10^6/uL (3.50-5.40) Hemoglobin 17.6 g/dL (12.0-15.5) Hematocrit 50.5 % (36.0-47.0) Mean Corpuscular Volume 92 fL (79-100) Mean Corpuscular Hemoglobin 32 pg (25-35) Mean Corpuscular Hemoglobin Concent 35 g/dL (31-37) Red Cell Distribution Width 12.6 % (11.5-14.5) Platelet Count 284 x10^3/uL (140-400) Neutrophils (%) (Auto) 58 % (31-73) Lymphocytes (%) (Auto) 32 % (24-48) Monocytes (%) (Auto) 6 % (0-9) Eosinophils (%) (Auto) 2 % (0-3) Basophils (%) (Auto) 1 % (0-3) Neutrophils # (Auto) 5.4 x10^3/uL (1.8-7.7) Lymphocytes # (Auto) 3.0 x10^3/uL (1.0-4.8) Monocytes # (Auto) 0.5 x10^3/uL (0.0-1.1) Eosinophils # (Auto) 0.2 x10^3/uL (0.0-0.7) Basophils # (Auto) 0.1 x10^3/uL (0.0-0.2) Prothrombin Time 13.0 SEC (11.7-14.0) Prothromb Time International Ratio 1.0 (0.8-1.1) Activated Partial Thromboplast Time 31 SEC (24-38) Sodium Level 139 mmol/L (136-145) Potassium Level 4.1 mmol/L (3.5-5.1) Chloride Level 102 mmol/L (98-107) Carbon Dioxide Level 30 mmol/L (21-32) Anion Gap 7 (6-14) Blood Urea Nitrogen 9 mg/dL (7-20) Creatinine 0.8 mg/dL (0.6-1.0) Estimated GFR (Cockcroft-Gault) 76.6 BUN/Creatinine Ratio 11 (6-20) Glucose Level 169 mg/dL (70-99) Lactic Acid Level 1.6 mmol/L (0.4-2.0) Calcium Level 9.6 mg/dL (8.5-10.1) Magnesium Level 1.9 mg/dL (1.8-2.4) Total Bilirubin 0.8 mg/dL (0.2-1.0) Aspartate Amino Transf (AST/SGOT) 44 U/L (15-37) Alanine Aminotransferase (ALT/SGPT) 77 U/L (14-59) Alkaline Phosphatase 138 U/L (46-116) Creatine Kinase 61 U/L (26-192) Creatine Kinase MB (Mass) 0.6 ng/mL (0.0-3.6) Creatine Kinase MB Relative Index % (0-4) Troponin I Quantitative < 0.017 ng/mL (0.000-0.055) < 0.017 ng/mL (0.000-0.055) Total Protein 7.7 g/dL (6.4-8.2) Albumin 3.7 g/dL (3.4-5.0) Albumin/Globulin Ratio 0.9 (1.0-1.7) Serum Test, Qualitative Negative (NEG) Urine Collection Type Unknown Urine Color Straw Urine Clarity Clear Urine pH 6.5 (<5.0-8.0) Urine Specific [place] <=1.005 (1.000-1.030) Urine Protein Negative mg/dL (NEG-TRACE) Urine Glucose (UA) Negative mg/dL (NEG) Urine Ketones (Stick) Negative mg/dL (NEG) Urine Blood Negative (NEG) Urine Nitrite Negative (NEG) Urine Bilirubin Negative (NEG) Urine Urobilinogen Dipstick 0.2 mg/dL (0.2 mg/dL) Urine Leukocyte Esterase Negative (NEG) Urine RBC 0 /HPF (0-2) Urine WBC 0 /HPF (0-4) Urine Squamous Epithelial Cells Mod /LPF Urine Bacteria Moderate /HPF (0-FEW) Test 01/17/20 23:13 01/19/20 05:00 Troponin I Quantitative < 0.017 ng/mL (0.000-0.055) White Blood Count 12.8 x10^3/uL (4.0-11.0) Red Blood Count 5.10 x10^6/uL (3.50-5.40) Hemoglobin 15.8 g/dL (12.0-15.5) Hematocrit 46.7 % (36.0-47.0) Mean Corpuscular Volume 92 fL (79-100) Mean Corpuscular Hemoglobin 31 pg (25-35) Mean Corpuscular Hemoglobin Concent 34 g/dL (31-37) Red Cell Distribution Width 12.8 % (11.5-14.5) Platelet Count 270 x10^3/uL (140-400) Neutrophils (%) (Auto) 68 % (31-73) Lymphocytes (%) (Auto) 23 % (24-48) Monocytes (%) (Auto) 7 % (0-9) Eosinophils (%) (Auto) 1 % (0-3) Basophils (%) (Auto) 1 % (0-3) Neutrophils # (Auto) 8.8 x10^3/uL (1.8-7.7) Lymphocytes # (Auto) 2.9 x10^3/uL (1.0-4.8) Monocytes # (Auto) 0.9 x10^3/uL (0.0-1.1) Eosinophils # (Auto) 0.2 x10^3/uL (0.0-0.7) Basophils # (Auto) 0.1 x10^3/uL (0.0-0.2) Sodium Level 137 mmol/L (136-145) Potassium Level 3.5 mmol/L (3.5-5.1) Chloride Level 99 mmol/L (98-107) Carbon Dioxide Level 26 mmol/L (21-32) Anion Gap 12 (6-14) Blood Urea Nitrogen 11 mg/dL (7-20) Creatinine 0.9 mg/dL (0.6-1.0) Estimated GFR (Cockcroft-Gault) 66.8 Glucose Level 189 mg/dL (70-99) Calcium Level 9.0 mg/dL (8.5-10.1) Laboratory Tests Test 01/19/20 05:00 White Blood Count 12.8 x10^3/uL (4.0-11.0) Red Blood Count 5.10 x10^6/uL (3.50-5.40) Hemoglobin 15.8 g/dL (12.0-15.5) Hematocrit 46.7 % (36.0-47.0) Mean Corpuscular Volume 92 fL (79-100) Mean Corpuscular Hemoglobin 31 pg (25-35) Mean Corpuscular Hemoglobin Concent 34 g/dL (31-37) Red Cell Distribution Width 12.8 % (11.5-14.5) Platelet Count 270 x10^3/uL (140-400) Neutrophils (%) (Auto) 68 % (31-73) Lymphocytes (%) (Auto) 23 % (24-48) Monocytes (%) (Auto) 7 % (0-9) Eosinophils (%) (Auto) 1 % (0-3) Basophils (%) (Auto) 1 % (0-3) Neutrophils # (Auto) 8.8 x10^3/uL (1.8-7.7) Lymphocytes # (Auto) 2.9 x10^3/uL (1.0-4.8) Monocytes # (Auto) 0.9 x10^3/uL (0.0-1.1) Eosinophils # (Auto) 0.2 x10^3/uL (0.0-0.7) Basophils # (Auto) 0.1 x10^3/uL (0.0-0.2) Sodium Level 137 mmol/L (136-145) Potassium Level 3.5 mmol/L (3.5-5.1) Chloride Level 99 mmol/L (98-107) Carbon Dioxide Level 26 mmol/L (21-32) Anion Gap 12 (6-14) Blood Urea Nitrogen 11 mg/dL (7-20) Creatinine 0.9 mg/dL (0.6-1.0) Estimated GFR (Cockcroft-Gault) 66.8 Glucose Level 189 mg/dL (70-99) Calcium Level 9.0 mg/dL (8.5-10.1) Medications Current Medications Aspirin (Julia Aspirin) 325 mg 1X ONCE PO Last administered on 01/17/20at 15:58; Start 01/17/20 at 15:00; Stop 01/17/20 at 15:06; Status DC Iohexol (Omnipaque 350 Mg/ml) 75 ml 1X ONCE IV Last administered on 01/17/20at 15:39; Start 01/17/20 at 15:30; Stop 01/17/20 at 15:31; Status DC Info (CONTRAST GIVEN -- Rx MONITORING) 1 each PRN DAILY PRN MC SEE COMMENTS Last administered on 01/17/20at 19:46; Start 01/17/20 at 15:30; Stop 01/19/20 at 15:29 Acetaminophen (Tylenol) 650 mg PRN Q6HRS PRN PO TEMP > 100.4F; Start 01/18/20 at 08:45 Acetaminophen (Tylenol Supp) 650 mg PRN Q4HRS PRN [place] TEMP > 100.4F; Start 01/18/20 at 08:45 Aspirin (Ecotrin) 325 mg DAILYWBKFT PO Last administered on 01/19/20at 08:32; Start 01/19/20 at 08:00 Aspirin (Aspirin Rectal Supp) 300 mg PRN DAILY PRN [place] IF UNABLE TO TAKE PO; Start 01/18/20 at 08:45 Atorvastatin Calcium (Lipitor) 40 mg HS PO Last administered on 01/18/20at 20:19; Start 01/18/20 at 21:00 Lisinopril (Prinivil) 40 mg DAILY PO Last administered on 01/19/20at 08:32; Start 01/18/20 at 10:30 Clonazepam (KlonoPIN) 0.5 mg PRN TID PRN PO ANXIETY / AGITATION Last administered on 01/19/20at 03:21; Start 01/18/20 at 09:45 Non-Formulary Medication (Lurasidone Hcl (Latuda)) 60 mg DAILY PO ; Start 01/19/20 at 09:00; Status UNV Pantoprazole Sodium (Protonix) 40 mg DAILYAC PO Last administered on 01/19/20at 08:32; Start 01/18/20 at 10:30 Prazosin HCl (Minipress) 5 mg QHS PO Last administered on 01/18/20at 20:20; Start 01/18/20 at 21:00 Trazodone HCl (Desyrel) 150 mg QHS PO Last administered on 01/18/20at 20:19; Start 01/18/20 at 21:00 Non-Formulary Medication (Vilazodone Hydrochloride (Viibryd)) 1 tab DAILY PO ; Start 01/19/20 at 09:00; Status UNV Diphenhydramine HCl (Benadryl) 25 mg PRN Q6HRS PRN PO ITCHING Last administered on 01/19/20at 03:22; Start 01/18/20 at 13:30 Active Scripts Active Reported Viibryd (Vilazodone Hydrochloride) 40 Mg Tablet 1 Tab PO DAILY Latuda (Lurasidone Hcl) 60 Mg Tablet 60 Mg PO DAILY Clonazepam 1 Mg Tablet 0.5 Mg PO PRN TID PRN Prazosin Hcl 5 Mg Capsule 1 Cap PO QHS Atorvastatin Calcium 40 Mg Tablet 40 Mg PO HS Trazodone Hcl 150 Mg Tablet 150 Mg PO HS Lisinopril 40 Mg Tablet 40 Mg PO DAILY Omeprazole 40 Mg Capsule.dr 40 Mg PO DAILY Vitals/I & O Vital Sign - Last 24 Hours 01/18/20 01/18/20 01/18/20 01/18/20 10:18 10:33 14:37 19:00 Temp 98.1 98.0 97.8 98.1 98.0 97.8 Pulse 69 71 67 76 Resp 20 20 18 B/P (MAP) 153/97 151/105 (120) 132/81 (98) 146/90 (108) Pulse Ox 95 95 97 O2 Delivery Room Air Room Air Room Air 01/18/20 01/18/20 01/18/20 01/19/20 20:00 20:20 22:56 03:04 Temp 97.9 98.0 97.9 98.0 Pulse 76 84 118 Resp 23 23 B/P (MAP) 146/90 118/71 (87) 118/71 (87) Pulse Ox 98 99 O2 Delivery Room Air Room Air Room Air 01/19/20 01/19/20 07:00 08:32 Temp 98.2 98.2 Pulse 105 105 Resp 20 B/P (MAP) 126/76 (93) 126/76 Pulse Ox 93 O2 Delivery Room Air Intake and Output 01/18/20 01/18/20 01/19/20 14:59 22:59 06:59 Intake Total 250 ml 320 ml 700 ml Output Total 450 ml 1050 ml Balance -200 ml -730 ml 700 ml Images BRAIN W/O CONTRAST INDICATION: Right hemiparesis COMPARISON: CT from one day prior TECHNIQUE: Multiplanar, multisequence MRI images obtained through the brain. FINDINGS: No midline shift. Basilar cistern patent. Small focus of restricted diffusion within the left cerebral hemisphere adjacent to left lateral ventricle. This also involves a portion of the internal and external capsule. There is associated edema. Ventricles and sulci are within normal limits in size for the patient's age. No intracranial hemorrhage or gross mass seen. No retro-orbital hematoma. Paranasal sinuses are unremarkable. Partially empty sella with the pituitary flattened along the inferior aspect. IMPRESSION: 1. Restricted diffusion is identified within the left cerebral hemisphere adjacent to left lateral ventricle with associated edema. This can be seen with acute ischemia. No evidence of hemorrhagic transformation at this time Echocardiogram: LEFT VENTRICLE The left ventricle is normal size. There is normal left ventricular wall thickness. The left ventricular systolic function is normal. The Ejection Fraction is 60-65%. There is normal LV segmental wall motion. The left ventricular diastolic function and filling is normal for age. RIGHT VENTRICLE The right ventricle is normal size. The right ventricular systolic function is normal. ATRIA The left atrium is mildly dilated. The right atrium size is normal. The interatrial septum is intact with no evidence for an atrial septal defect or p atent foramen ovale as noted on 2-D or Doppler imaging. Injection of bubbles documented no interatrial shunt. AORTIC VALVE The aortic valve is normal in structure and function. Doppler and Color Flow revealed no significant aortic regurgitation. There is no significant aortic valvular stenosis. MITRAL VALVE The mitral valve is normal in structure and function. There is no evidence of mitral valve prolapse. There is no mitral valve stenosis. Doppler and Color Flow revealed no mitral valve regurgitation noted. TRICUSPID VALVE The tricuspid valve is normal in structure and function. Doppler and Color Flow revealed no tricuspid valve regurgitation noted. There is no tricuspid valve stenosis. PULMONIC VALVE The pulmonary valve is normal in structure and function. Doppler and Color Flow revealed trace pulmonic valvular regurgitation. There is no pulmonic valvular stenosis. GREAT VESSELS The aortic root is normal in size. The ascending aorta is normal in size. The IVC is normal in size and collapses >50% with inspiration. PERICARDIAL EFFUSION There is no evidence of significant pericardial effusion. Critical Notification Critical Value: No <Conclusion> The left ventricular systolic function is normal. The Ejection Fraction is 60-65%. There is normal LV segmental wall motion. There is no evidence of significant pericardial effusion. Injection of bubbles documented no interatrial shunt. Justicifation of Admission Dx: Justifications for Admission: Justification of Admission Dx: Yes LINDSAY MICHEL MD Jan 19, 2020 09:15
--- NOTE | 2020-01-19 10:47 | NUR ---
SS following up with discharge planning. SS reviewed pt chart and discussed with pt RN. PT/OT recommended acute rehabilitation but no jd beds available at this time. [phone], and [facility] reviewing for [facility] SS discussed with Laya in [employer] and they will complete Medicaid application with pt today and submit. SS provided pt with health insurance counseling number for information on temporary health insurance options until Medicaid can be approved. Pt reported that she has been on [employer] Disability for approximately 12 months. SS notified pt that after 24 months she may be able to qualify for Medicare benefits and advised pt to request information from health insurance counselors. Pt currently on room air. Possible discharge to home today. SS will continue to follow for discharge planning.
[2020-01-19 10:54] VITALS: BP 152/96
[2020-01-19] MEDS ORDERED: tiZANidine 4 MG TABLET. PO PRN (11:00)
--- NOTE | 2020-01-19 12:46 | PDOC ---
PROGRESS NOTES Date of Service: DATE: 01/19/20 TIME: 12:41 Chief Complaint Chief Complaint Right-sided weakness History of Present Illness History of Present Illness Patient states she is feeling well today. We discussed discharging with [facility], and patient is wanting to discharge home today. Discussed medication adjustment. Vitals Vitals Vital Signs Date Time Temp Pulse Resp B/P (MAP) Pulse Ox O2 Delivery O2 Flow Rate FiO2 01/19/20 10:54 97.9 86 20 152/96 (114) 96 Room Air 97.9 Physical Exam General: Alert, Oriented X3, Cooperative, No acute distress Abdomen: Normal bowel sounds, Soft, No tenderness, No hepatosplenomegaly, No masses Extremities: No clubbing, No cyanosis, No edema, Normal pulses, No tenderness/swelling Skin: No rashes, No breakdown, No significant lesion Labs LABS Laboratory Tests Test 01/19/20 05:00 White Blood Count 12.8 x10^3/uL (4.0-11.0) Red Blood Count 5.10 x10^6/uL (3.50-5.40) Hemoglobin 15.8 g/dL (12.0-15.5) Hematocrit 46.7 % (36.0-47.0) Mean Corpuscular Volume 92 fL (79-100) Mean Corpuscular Hemoglobin 31 pg (25-35) Mean Corpuscular Hemoglobin Concent 34 g/dL (31-37) Red Cell Distribution Width 12.8 % (11.5-14.5) Platelet Count 270 x10^3/uL (140-400) Neutrophils (%) (Auto) 68 % (31-73) Lymphocytes (%) (Auto) 23 % (24-48) Monocytes (%) (Auto) 7 % (0-9) Eosinophils (%) (Auto) 1 % (0-3) Basophils (%) (Auto) 1 % (0-3) Neutrophils # (Auto) 8.8 x10^3/uL (1.8-7.7) Lymphocytes # (Auto) 2.9 x10^3/uL (1.0-4.8) Monocytes # (Auto) 0.9 x10^3/uL (0.0-1.1) Eosinophils # (Auto) 0.2 x10^3/uL (0.0-0.7) Basophils # (Auto) 0.1 x10^3/uL (0.0-0.2) Sodium Level 137 mmol/L (136-145) Potassium Level 3.5 mmol/L (3.5-5.1) Chloride Level 99 mmol/L (98-107) Carbon Dioxide Level 26 mmol/L (21-32) Anion Gap 12 (6-14) Blood Urea Nitrogen 11 mg/dL (7-20) Creatinine 0.9 mg/dL (0.6-1.0) Estimated GFR (Cockcroft-Gault) 66.8 Glucose Level 189 mg/dL (70-99) Calcium Level 9.0 mg/dL (8.5-10.1) Review of Systems Review of Systems Right lower extremity weakness. Denies headache, denies chest pain, denies shortness of breath Assessment and Plan Assessmemt and Plan Problems Medical Problems: (1) CVA (cerebral vascular accident) Status: Acute Comment Review of Relevant I have reviewed the following items augusto (where applicable) has been applied. Labs Laboratory Tests Test 01/17/20 14:32 01/17/20 14:40 01/17/20 14:43 01/17/20 20:11 Triglycerides Level 130 mg/dL (0-150) Cholesterol Level 138 mg/dL (0-200) LDL Cholesterol, Calculated 78 mg/dL (0-100) VLDL Cholesterol, Calculated 26 mg/dL (0-40) Non-HDL Cholesterol Calculated 104 mg/dL (0-129) HDL Cholesterol 34 mg/dL (40-60) Cholesterol/HDL Ratio 4.1 White Blood Count 9.3 x10^3/uL (4.0-11.0) Red Blood Count 5.51 x10^6/uL (3.50-5.40) Hemoglobin 17.6 g/dL (12.0-15.5) Hematocrit 50.5 % (36.0-47.0) Mean Corpuscular Volume 92 fL (79-100) Mean Corpuscular Hemoglobin 32 pg (25-35) Mean Corpuscular Hemoglobin Concent 35 g/dL (31-37) Red Cell Distribution Width 12.6 % (11.5-14.5) Platelet Count 284 x10^3/uL (140-400) Neutrophils (%) (Auto) 58 % (31-73) Lymphocytes (%) (Auto) 32 % (24-48) Monocytes (%) (Auto) 6 % (0-9) Eosinophils (%) (Auto) 2 % (0-3) Basophils (%) (Auto) 1 % (0-3) Neutrophils # (Auto) 5.4 x10^3/uL (1.8-7.7) Lymphocytes # (Auto) 3.0 x10^3/uL (1.0-4.8) Monocytes # (Auto) 0.5 x10^3/uL (0.0-1.1) Eosinophils # (Auto) 0.2 x10^3/uL (0.0-0.7) Basophils # (Auto) 0.1 x10^3/uL (0.0-0.2) Prothrombin Time 13.0 SEC (11.7-14.0) Prothromb Time International Ratio 1.0 (0.8-1.1) Activated Partial Thromboplast Time 31 SEC (24-38) Sodium Level 139 mmol/L (136-145) Potassium Level 4.1 mmol/L (3.5-5.1) Chloride Level 102 mmol/L (98-107) Carbon Dioxide Level 30 mmol/L (21-32) Anion Gap 7 (6-14) Blood Urea Nitrogen 9 mg/dL (7-20) Creatinine 0.8 mg/dL (0.6-1.0) Estimated GFR (Cockcroft-Gault) 76.6 BUN/Creatinine Ratio 11 (6-20) Glucose Level 169 mg/dL (70-99) Lactic Acid Level 1.6 mmol/L (0.4-2.0) Calcium Level 9.6 mg/dL (8.5-10.1) Magnesium Level 1.9 mg/dL (1.8-2.4) Total Bilirubin 0.8 mg/dL (0.2-1.0) Aspartate Amino Transf (AST/SGOT) 44 U/L (15-37) Alanine Aminotransferase (ALT/SGPT) 77 U/L (14-59) Alkaline Phosphatase 138 U/L (46-116) Creatine Kinase 61 U/L (26-192) Creatine Kinase MB (Mass) 0.6 ng/mL (0.0-3.6) Creatine Kinase MB Relative Index % (0-4) Troponin I Quantitative < 0.017 ng/mL (0.000-0.055) < 0.017 ng/mL (0.000-0.055) Total Protein 7.7 g/dL (6.4-8.2) Albumin 3.7 g/dL (3.4-5.0) Albumin/Globulin Ratio 0.9 (1.0-1.7) Serum Test, Qualitative Negative (NEG) Urine Collection Type Unknown Urine Color Straw Urine Clarity Clear Urine pH 6.5 (<5.0-8.0) Urine Specific [place] <=1.005 (1.000-1.030) Urine Protein Negative mg/dL (NEG-TRACE) Urine Glucose (UA) Negative mg/dL (NEG) Urine Ketones (Stick) Negative mg/dL (NEG) Urine Blood Negative (NEG) Urine Nitrite Negative (NEG) Urine Bilirubin Negative (NEG) Urine Urobilinogen Dipstick 0.2 mg/dL (0.2 mg/dL) Urine Leukocyte Esterase Negative (NEG) Urine RBC 0 /HPF (0-2) Urine WBC 0 /HPF (0-4) Urine Squamous Epithelial Cells Mod /LPF Urine Bacteria Moderate /HPF (0-FEW) Test 01/17/20 23:13 01/19/20 05:00 Troponin I Quantitative < 0.017 ng/mL (0.000-0.055) White Blood Count 12.8 x10^3/uL (4.0-11.0) Red Blood Count 5.10 x10^6/uL (3.50-5.40) Hemoglobin 15.8 g/dL (12.0-15.5) Hematocrit 46.7 % (36.0-47.0) Mean Corpuscular Volume 92 fL (79-100) Mean Corpuscular Hemoglobin 31 pg (25-35) Mean Corpuscular Hemoglobin Concent 34 g/dL (31-37) Red Cell Distribution Width 12.8 % (11.5-14.5) Platelet Count 270 x10^3/uL (140-400) Neutrophils (%) (Auto) 68 % (31-73) Lymphocytes (%) (Auto) 23 % (24-48) Monocytes (%) (Auto) 7 % (0-9) Eosinophils (%) (Auto) 1 % (0-3) Basophils (%) (Auto) 1 % (0-3) Neutrophils # (Auto) 8.8 x10^3/uL (1.8-7.7) Lymphocytes # (Auto) 2.9 x10^3/uL (1.0-4.8) Monocytes # (Auto) 0.9 x10^3/uL (0.0-1.1) Eosinophils # (Auto) 0.2 x10^3/uL (0.0-0.7) Basophils # (Auto) 0.1 x10^3/uL (0.0-0.2) Sodium Level 137 mmol/L (136-145) Potassium Level 3.5 mmol/L (3.5-5.1) Chloride Level 99 mmol/L (98-107) Carbon Dioxide Level 26 mmol/L (21-32) Anion Gap 12 (6-14) Blood Urea Nitrogen 11 mg/dL (7-20) Creatinine 0.9 mg/dL (0.6-1.0) Estimated GFR (Cockcroft-Gault) 66.8 Glucose Level 189 mg/dL (70-99) Calcium Level 9.0 mg/dL (8.5-10.1) Laboratory Tests Test 01/19/20 05:00 White Blood Count 12.8 x10^3/uL (4.0-11.0) Red Blood Count 5.10 x10^6/uL (3.50-5.40) Hemoglobin 15.8 g/dL (12.0-15.5) Hematocrit 46.7 % (36.0-47.0) Mean Corpuscular Volume 92 fL (79-100) Mean Corpuscular Hemoglobin 31 pg (25-35) Mean Corpuscular Hemoglobin Concent 34 g/dL (31-37) Red Cell Distribution Width 12.8 % (11.5-14.5) Platelet Count 270 x10^3/uL (140-400) Neutrophils (%) (Auto) 68 % (31-73) Lymphocytes (%) (Auto) 23 % (24-48) Monocytes (%) (Auto) 7 % (0-9) Eosinophils (%) (Auto) 1 % (0-3) Basophils (%) (Auto) 1 % (0-3) Neutrophils # (Auto) 8.8 x10^3/uL (1.8-7.7) Lymphocytes # (Auto) 2.9 x10^3/uL (1.0-4.8) Monocytes # (Auto) 0.9 x10^3/uL (0.0-1.1) Eosinophils # (Auto) 0.2 x10^3/uL (0.0-0.7) Basophils # (Auto) 0.1 x10^3/uL (0.0-0.2) Sodium Level 137 mmol/L (136-145) Potassium Level 3.5 mmol/L (3.5-5.1) Chloride Level 99 mmol/L (98-107) Carbon Dioxide Level 26 mmol/L (21-32) Anion Gap 12 (6-14) Blood Urea Nitrogen 11 mg/dL (7-20) Creatinine 0.9 mg/dL (0.6-1.0) Estimated GFR (Cockcroft-Gault) 66.8 Glucose Level 189 mg/dL (70-99) Calcium Level 9.0 mg/dL (8.5-10.1) Microbiology 01/17/20 Urine Culture - Final, Complete Medications Current Medications Aspirin (Julia Aspirin) 325 mg 1X ONCE PO Last administered on 01/17/20at 15:58; Start 01/17/20 at 15:00; Stop 01/17/20 at 15:06; Status DC Iohexol (Omnipaque 350 Mg/ml) 75 ml 1X ONCE IV Last administered on 01/17/20at 15:39; Start 01/17/20 at 15:30; Stop 01/17/20 at 15:31; Status DC Info (CONTRAST GIVEN -- Rx MONITORING) 1 each PRN DAILY PRN MC SEE COMMENTS Last administered on 01/17/20at 19:46; Start 01/17/20 at 15:30; Stop 01/19/20 at 15:29 Acetaminophen (Tylenol) 650 mg PRN Q6HRS PRN PO TEMP > 100.4F; Start 01/18/20 at 08:45 Acetaminophen (Tylenol Supp) 650 mg PRN Q4HRS PRN AR TEMP > 100.4F; Start 01/18/20 at 08:45 Aspirin (Ecotrin) 325 mg DAILYWBKFT PO Last administered on 01/19/20at 08:32; Start 01/19/20 at 08:00 Aspirin (Aspirin Rectal Supp) 300 mg PRN DAILY PRN AR IF UNABLE TO TAKE PO; Start 01/18/20 at 08:45 Atorvastatin Calcium (Lipitor) 40 mg HS PO Last administered on 01/18/20 20:19; Start 01/18/20 at 21:00 Lisinopril (Prinivil) 40 mg DAILY PO Last administered on 01/19/20 08:32; Start 01/18/20 at 10:30 Clonazepam (KlonoPIN) 0.5 mg PRN TID PRN PO ANXIETY / AGITATION Last administered on 01/19/20at 09:53; Start 01/18/20 at 09:45 Non-Formulary Medication (Lurasidone Hcl (Latuda)) 60 mg DAILY PO ; Start 01/19/20 at 09:00; Status UNV Pantoprazole Sodium (Protonix) 40 mg DAILYAC PO Last administered on 01/19/20 08:32; Start 01/18/20 at 10:30 Prazosin HCl (Minipress) 5 mg QHS PO Last administered on 01/18/20at 20:20; Start 01/18/20 at 21:00 Trazodone HCl (Desyrel) 150 mg QHS PO Last administered on 01/18/20at 20:19; Start 01/18/20 at 21:00 Non-Formulary Medication (Vilazodone Hydrochloride (Viibryd)) 1 tab DAILY PO ; Start 01/19/20 at 09:00; Status UNV Diphenhydramine HCl (Benadryl) 25 mg PRN Q6HRS PRN PO ITCHING Last administered on 01/19/20at 09:53; Start 01/18/20 at 13:30 Tizanidine HCl (Zanaflex) 4 mg PRN Q8HRS PRN PO MUSCLE SPASMS Last administered on 01/19/20at 11:35; Start 01/19/20 at 11:00 Active Scripts Active Reported Viibryd (Vilazodone Hydrochloride) 40 Mg Tablet 1 Tab PO DAILY Latuda (Lurasidone Hcl) 60 Mg Tablet 60 Mg PO DAILY Clonazepam 1 Mg Tablet 0.5 Mg PO PRN TID PRN Prazosin Hcl 5 Mg Capsule 1 Cap PO QHS Atorvastatin Calcium 40 Mg Tablet 40 Mg PO HS Trazodone Hcl 150 Mg Tablet 150 Mg PO HS Lisinopril 40 Mg Tablet 40 Mg PO DAILY Omeprazole 40 Mg Capsule.dr 40 Mg PO DAILY Vitals/I & O Vital Sign - Last 24 Hours 01/18/20 01/18/20 01/18/20 01/18/20 14:37 19:00 20:00 20:20 Temp 98.0 97.8 98.0 97.8 Pulse 67 76 76 Resp 20 18 B/P (MAP) 132/81 (98) 146/90 (108) 146/90 Pulse Ox 95 97 O2 Delivery Room Air Room Air Room Air 01/18/20 01/19/20 01/19/20 01/19/20 22:56 03:04 07:00 07:30 Temp 97.9 98.0 98.2 97.9 98.0 98.2 Pulse 84 118 105 Resp 23 23 20 B/P (MAP) 118/71 (87) 118/71 (87) 126/76 (93) Pulse Ox 98 99 93 O2 Delivery Room Air Room Air Room Air Room Air 01/19/20 01/19/20 08:32 10:54 Temp 97.9 97.9 Pulse 105 86 Resp 20 B/P (MAP) 126/76 152/96 (114) Pulse Ox 96 O2 Delivery Room Air Intake and Output 01/18/20 01/18/20 01/19/20 15:00 23:00 07:00 Intake Total 250 ml 320 ml 700 ml Output Total 450 ml 1050 ml Balance -200 ml -730 ml 700 ml Justicifation of Admission Dx: Justifications for Admission: Justification of Admission Dx: Yes CALEB REYNOSO MD Jan 19, 2020 12:46
[2020-01-19] MEDS ORDERED: ASPI325T11 PO (12:54)
--- NOTE | 2020-01-19 12:57 | SNU/HH DC ---
DISCHARGE WITH HOME HEALTH DISCHARGE INFORMATION: Final Diagnosis: Problems Medical Problems: (1) CVA (cerebral vascular accident) Status: Acute Condition on Discharge: Stable CODE STATUS: Code Status: Full HOME HEALTH: Face to Face: I certify this patient is under my care and that I, or a nurse practitioner or physician's educational program assistant working with me, had a face to face encounter that meets the physician face to face encounter requirements with this patient on 01/19/2020. RN For Eval/Treatment: Yes Physical Therapy For: Evalulation/Treatment Occupational Therapy For: Evaluation/Treatment Pt Meets Homebound Status: Poor coordination w/ amb., Unsteady balance w/ amb, POST DISCHARGE ORDERS: DIET AFTER DISCHARGE: Cardiac CERTIFICATION STATEMENT: Certification Statement: Certification Statement: Based on the above finding, I certify that this patient is confined to the home and needs intermittent prison care, physical therapy and/or speech therapy, or continues to need occupational therapy.~ This patient is under my care, and I have initiated the establishment of the plan of care.~ This patient will be followed by myself or a community physician who will periodically review the plan of care. Home Meds Reported Medications Vilazodone Hydrochloride (VIIBRYD) 40 Mg Tablet, 1 TAB PO DAILY for Depression, #30 TAB 1 Refill 01/18/20 Lurasidone Hcl (LATUDA) 60 Mg Tablet, 60 MG PO DAILY for Depression, TAB 01/18/20 Clonazepam (CLONAZEPAM) 1 Mg Tablet, 0.5 MG PO PRN TID PRN for ANXIETY / AGITATION, TAB 01/18/20 Prazosin Hcl (PRAZOSIN HCL) 5 Mg Capsule, 1 CAP PO QHS for HTN, #30 CAP 1 Refill 01/18/20 Atorvastatin Calcium (ATORVASTATIN CALCIUM) 40 Mg Tablet, 40 MG PO HS for FOR C HOLESTEROL, #30 TAB 0 Refills 01/18/20 Trazodone Hcl (TRAZODONE HCL) 150 Mg Tablet, 150 MG PO HS for insomnia, TAB 01/18/20 Lisinopril (LISINOPRIL) 40 Mg Tablet, 40 MG PO DAILY for FOR HYPERTENSION, #30 TAB 0 Refills 01/18/20 Omeprazole (OMEPRAZOLE) 40 Mg Capsule.dr, 40 MG PO DAILY for gerd, CAP 01/18/20 CALEB REYNOSO MD Jan 19, 2020 12:56
--- NOTE | 2020-01-19 13:01 | PDOC3 ---
Discharge Summary Visit Information Date of Admission: Jan 17, 2020 Date of Discharge: Jan 19, 2020 Final Diagnosis Problems Medical Problems: (1) CVA (cerebral vascular accident) Status: Acute Brief Hospital Course Allergies Allergies Coded Allergies Type Severity Reaction Last Updated Verified Penicillins Allergy Intermediate 01/17/20 Yes ceftriaxone Allergy Intermediate 01/17/20 Yes lorazepam Allergy Intermediate 01/17/20 Yes Vital Signs Vital Signs Date Time Temp Pulse Resp B/P (MAP) Pulse Ox O2 Delivery O2 Flow Rate FiO2 01/19/20 10:54 97.9 86 20 152/96 (114) 96 Room Air 97.9 Lab Results Laboratory Tests Test 01/17/20 14:32 01/17/20 14:40 01/17/20 14:43 01/17/20 20:11 Triglycerides Level 130 mg/dL (0-150) Cholesterol Level 138 mg/dL (0-200) LDL Cholesterol, Calculated 78 mg/dL (0-100) VLDL Cholesterol, Calculated 26 mg/dL (0-40) Non-HDL Cholesterol Calculated 104 mg/dL (0-129) HDL Cholesterol 34 mg/dL (40-60) Cholesterol/HDL Ratio 4.1 White Blood Count 9.3 x10^3/uL (4.0-11.0) Red Blood Count 5.51 x10^6/uL (3.50-5.40) Hemoglobin 17.6 g/dL (12.0-15.5) Hematocrit 50.5 % (36.0-47.0) Mean Corpuscular Volume 92 fL (79-100) Mean Corpuscular Hemoglobin 32 pg (25-35) Mean Corpuscular Hemoglobin Concent 35 g/dL (31-37) Red Cell Distribution Width 12.6 % (11.5-14.5) Platelet Count 284 x10^3/uL (140-400) Neutrophils (%) (Auto) 58 % (31-73) Lymphocytes (%) (Auto) 32 % (24-48) Monocytes (%) (Auto) 6 % (0-9) Eosinophils (%) (Auto) 2 % (0-3) Basophils (%) (Auto) 1 % (0-3) Neutrophils # (Auto) 5.4 x10^3/uL (1.8-7.7) Lymphocytes # (Auto) 3.0 x10^3/uL (1.0-4.8) Monocytes # (Auto) 0.5 x10^3/uL (0.0-1.1) Eosinophils # (Auto) 0.2 x10^3/uL (0.0-0.7) Basophils # (Auto) 0.1 x10^3/uL (0.0-0.2) Prothrombin Time 13.0 SEC (11.7-14.0) Prothromb Time International Ratio 1.0 (0.8-1.1) Activated Partial Thromboplast Time 31 SEC (24-38) Sodium Level 139 mmol/L (136-145) Potassium Level 4.1 mmol/L (3.5-5.1) Chloride Level 102 mmol/L (98-107) Carbon Dioxide Level 30 mmol/L (21-32) Anion Gap 7 (6-14) Blood Urea Nitrogen 9 mg/dL (7-20) Creatinine 0.8 mg/dL (0.6-1.0) Estimated GFR (Cockcroft-Gault) 76.6 BUN/Creatinine Ratio 11 (6-20) Glucose Level 169 mg/dL (70-99) Lactic Acid Level 1.6 mmol/L (0.4-2.0) Calcium Level 9.6 mg/dL (8.5-10.1) Magnesium Level 1.9 mg/dL (1.8-2.4) Total Bilirubin 0.8 mg/dL (0.2-1.0) Aspartate Amino Transf (AST/SGOT) 44 U/L (15-37) Alanine Aminotransferase (ALT/SGPT) 77 U/L (14-59) Alkaline Phosphatase 138 U/L (46-116) Creatine Kinase 61 U/L (26-192) Creatine Kinase MB (Mass) 0.6 ng/mL (0.0-3.6) Creatine Kinase MB Relative Index % (0-4) Troponin I Quantitative < 0.017 ng/mL (0.000-0.055) < 0.017 ng/mL (0.000-0.055) Total Protein 7.7 g/dL (6.4-8.2) Albumin 3.7 g/dL (3.4-5.0) Albumin/Globulin Ratio 0.9 (1.0-1.7) Serum Test, Qualitative Negative (NEG) Urine Collection Type Unknown Urine Color Straw Urine Clarity Clear Urine pH 6.5 (<5.0-8.0) Urine Specific [place] <=1.005 (1.000-1.030) Urine Protein Negative mg/dL (NEG-TRACE) Urine Glucose (UA) Negative mg/dL (NEG) Urine Ketones (Stick) Negative mg/dL (NEG) Urine Blood Negative (NEG) Urine Nitrite Negative (NEG) Urine Bilirubin Negative (NEG) Urine Urobilinogen Dipstick 0.2 mg/dL (0.2 mg/dL) Urine Leukocyte Esterase Negative (NEG) Urine RBC 0 /HPF (0-2) Urine WBC 0 /HPF (0-4) Urine Squamous Epithelial Cells Mod /LPF Urine Bacteria Moderate /HPF (0-FEW) Test 01/17/20 23:13 01/19/20 05:00 Troponin I Quantitative < 0.017 ng/mL (0.000-0.055) White Blood Count 12.8 x10^3/uL (4.0-11.0) Red Blood Count 5.10 x10^6/uL (3.50-5.40) Hemoglobin 15.8 g/dL (12.0-15.5) Hematocrit 46.7 % (36.0-47.0) Mean Corpuscular Volume 92 fL (79-100) Mean Corpuscular Hemoglobin 31 pg (25-35) Mean Corpuscular Hemoglobin Concent 34 g/dL (31-37) Red Cell Distribution Width 12.8 % (11.5-14.5) Platelet Count 270 x10^3/uL (140-400) Neutrophils (%) (Auto) 68 % (31-73) Lymphocytes (%) (Auto) 23 % (24-48) Monocytes (%) (Auto) 7 % (0-9) Eosinophils (%) (Auto) 1 % (0-3) Basophils (%) (Auto) 1 % (0-3) Neutrophils # (Auto) 8.8 x10^3/uL (1.8-7.7) Lymphocytes # (Auto) 2.9 x10^3/uL (1.0-4.8) Monocytes # (Auto) 0.9 x10^3/uL (0.0-1.1) Eosinophils # (Auto) 0.2 x10^3/uL (0.0-0.7) Basophils # (Auto) 0.1 x10^3/uL (0.0-0.2) Sodium Level 137 mmol/L (136-145) Potassium Level 3.5 mmol/L (3.5-5.1) Chloride Level 99 mmol/L (98-107) Carbon Dioxide Level 26 mmol/L (21-32) Anion Gap 12 (6-14) Blood Urea Nitrogen 11 mg/dL (7-20) Creatinine 0.9 mg/dL (0.6-1.0) Estimated GFR (Cockcroft-Gault) 66.8 Glucose Level 189 mg/dL (70-99) Calcium Level 9.0 mg/dL (8.5-10.1) Laboratory Tests Test 01/19/20 05:00 White Blood Count 12.8 x10^3/uL (4.0-11.0) Red Blood Count 5.10 x10^6/uL (3.50-5.40) Hemoglobin 15.8 g/dL (12.0-15.5) Hematocrit 46.7 % (36.0-47.0) Mean Corpuscular Volume 92 fL (79-100) Mean Corpuscular Hemoglobin 31 pg (25-35) Mean Corpuscular Hemoglobin Concent 34 g/dL (31-37) Red Cell Distribution Width 12.8 % (11.5-14.5) Platelet Count 270 x10^3/uL (140-400) Neutrophils (%) (Auto) 68 % (31-73) Lymphocytes (%) (Auto) 23 % (24-48) Monocytes (%) (Auto) 7 % (0-9) Eosinophils (%) (Auto) 1 % (0-3) Basophils (%) (Auto) 1 % (0-3) Neutrophils # (Auto) 8.8 x10^3/uL (1.8-7.7) Lymphocytes # (Auto) 2.9 x10^3/uL (1.0-4.8) Monocytes # (Auto) 0.9 x10^3/uL (0.0-1.1) Eosinophils # (Auto) 0.2 x10^3/uL (0.0-0.7) Basophils # (Auto) 0.1 x10^3/uL (0.0-0.2) Sodium Level 137 mmol/L (136-145) Potassium Level 3.5 mmol/L (3.5-5.1) Chloride Level 99 mmol/L (98-107) Carbon Dioxide Level 26 mmol/L (21-32) Anion Gap 12 (6-14) Blood Urea Nitrogen 11 mg/dL (7-20) Creatinine 0.9 mg/dL (0.6-1.0) Estimated GFR (Cockcroft-Gault) 66.8 Glucose Level 189 mg/dL (70-99) Calcium Level 9.0 mg/dL (8.5-10.1) Brief Hospital Course Ms. Encinas is a 49 old female who presented with right-sided weakness and facial droop. MRI obtained on 01/18/20 showed left cerebral hemisphere ischemia. Consult placed to neurology and rehab. Patient symptoms improved dramatically, with still some residual right lower extremity weakness. Discussed with patient that she will likely outpatient rehab. She was stable to discharge home with home health, Assessment Assessment Home with home health Discharge Information Condition at Discharge: Improved Follow Up: Weeks Disposition/Orders: D/C to Home w/ HH Scheduled Atorvastatin Calcium (Atorvastatin Calcium) 40 Mg Tablet, 40 MG PO HS for FOR CHOLESTEROL, #30 Ref 0 (Reported) Entered as Reported by: Cedric Davidson on 01/18/20301 Last Taken: UNKNOWN on Unknown Date & Time Last Action: Reviewed on 01/18/201645 by CALEB REYNOSO MD Lisinopril (Lisinopril) 40 Mg Tablet, 40 MG PO DAILY for FOR HYPERTENSION, #30 Ref 0 (Reported) Entered as Reported by: Cedric Davidson on 01/18/20301 Last Taken: UNKNOWN on Unknown Date & Time Last Action: Reviewed on 01/18/201645 by CALEB REYNOSO MD Lurasidone Hcl (Latuda) 60 Mg Tablet, 60 MG PO DAILY for Depression, (Reported) Entered as Reported by: CARROL TAYLOR on 01/18/20 0856 Last Taken: Unknown Dose on 01/17/20 Last Action: Reviewed on 01/18/201645 by CALEB REYNOSO MD Omeprazole (Omeprazole) 40 Mg Capsule.dr, 40 MG PO DAILY for gerd, (Reported) Entered as Reported by: Cedric Davidson on 01/18/20301 Last Taken: UNKNOWN on Unknown Date & Time Last Action: Reviewed on 01/18/201645 by CALEB REYNOSO MD Prazosin Hcl (Prazosin Hcl) 5 Mg Capsule, 1 CAP PO QHS for HTN, #30 Ref 1 (Reported) Entered as Reported by: CARROL TAYLOR on 01/18/20855 Last Taken: Unknown Dose on 01/16/20 Last Action: Reviewed on 01/18/201645 by CALEB REYNOSO MD Trazodone Hcl (Trazodone Hcl) 150 Mg Tablet, 150 MG PO HS for insomnia, (Reported) Entered as Reported by: Cedric Davidson on 01/18/20 030 Last Taken: UNKNOWN on Unknown Date & Time Last Action: Reviewed on 01/18/201645 by CALEB REYNOSO MD Vilazodone Hydrochloride (Viibryd) 40 Mg Tablet, 1 TAB PO DAILY for Depression, #30 Ref 1 (Reported) Entered as Reported by: CARROL TAYLOR on 01/18/20855 Last Taken: Unknown Dose on 01/17/20 Last Action: Reviewed on 01/18/201645 by CALEB REYNOSO MD Scheduled PRN Clonazepam (Clonazepam) 1 Mg Tablet, 0.5 MG PO PRN TID PRN for ANXIETY / AGITATION, (Reported) Entered as Reported by: CARROL TAYLOR on 01/18/20855 Last Taken: Unknown Dose on 01/14/20 Last Action: Reviewed on 01/18/201645 by CALEB REYNOSO MD Justicifation of Admission Dx: Justifications for Admission: Justification of Admission Dx: Yes CALEB REYNOSO MD Jan 19, 2020 13:00
--- NOTE | 2020-01-19 13:26 | PDOC ---
PROGRESS NOTES Date of Service DATE: 01/19/20 TIME: 13:22 Subjective Subjective No new complaints. Objective Objective Vital Signs Date Time Temp Pulse Resp B/P (MAP) Pulse Ox O2 Delivery O2 Flow Rate FiO2 01/19/20 10:54 97.9 86 20 152/96 (114) 96 Room Air 97.9 Intake and Output 01/19/20 07:00 Intake Total 1270 ml Output Total 1500 ml Balance -230 ml Intake Oral 1270 ml Output Urine Total 1500 ml # Voids 1 # Bowel Movements 1 Physical Exam Physical Exam She continues with right foot drop and [id number] using her right hand and right lower extremity. She received air cast brace to right ankle. Assessment Assessment Problems Medical Problems: (1) CVA (cerebral vascular accident) Status: Acute Plan Plan of Care Agree with plans for home with home health follow up when medically stable. She was advised to make sure have ankle brace on with shoes to support her right ankle while up. Comment Review of Relevant I have reviewed the following items augusto (where applicable) has been applied. Labs Laboratory Tests Test 01/17/20 14:32 01/17/20 14:40 01/17/20 14:43 01/17/20 20:11 Triglycerides Level 130 mg/dL (0-150) Cholesterol Level 138 mg/dL (0-200) LDL Cholesterol, Calculated 78 mg/dL (0-100) VLDL Cholesterol, Calculated 26 mg/dL (0-40) Non-HDL Cholesterol Calculated 104 mg/dL (0-129) HDL Cholesterol 34 mg/dL (40-60) Cholesterol/HDL Ratio 4.1 White Blood Count 9.3 x10^3/uL (4.0-11.0) Red Blood Count 5.51 x10^6/uL (3.50-5.40) Hemoglobin 17.6 g/dL (12.0-15.5) Hematocrit 50.5 % (36.0-47.0) Mean Corpuscular Volume 92 fL (79-100) Mean Corpuscular Hemoglobin 32 pg (25-35) Mean Corpuscular Hemoglobin Concent 35 g/dL (31-37) Red Cell Distribution Width 12.6 % (11.5-14.5) Platelet Count 284 x10^3/uL (140-400) Neutrophils (%) (Auto) 58 % (31-73) Lymphocytes (%) (Auto) 32 % (24-48) Monocytes (%) (Auto) 6 % (0-9) Eosinophils (%) (Auto) 2 % (0-3) Basophils (%) (Auto) 1 % (0-3) Neutrophils # (Auto) 5.4 x10^3/uL (1.8-7.7) Lymphocytes # (Auto) 3.0 x10^3/uL (1.0-4.8) Monocytes # (Auto) 0.5 x10^3/uL (0.0-1.1) Eosinophils # (Auto) 0.2 x10^3/uL (0.0-0.7) Basophils # (Auto) 0.1 x10^3/uL (0.0-0.2) Prothrombin Time 13.0 SEC (11.7-14.0) Prothromb Time International Ratio 1.0 (0.8-1.1) Activated Partial Thromboplast Time 31 SEC (24-38) Sodium Level 139 mmol/L (136-145) Potassium Level 4.1 mmol/L (3.5-5.1) Chloride Level 102 mmol/L (98-107) Carbon Dioxide Level 30 mmol/L (21-32) Anion Gap 7 (6-14) Blood Urea Nitrogen 9 mg/dL (7-20) Creatinine 0.8 mg/dL (0.6-1.0) Estimated GFR (Cockcroft-Gault) 76.6 BUN/Creatinine Ratio 11 (6-20) Glucose Level 169 mg/dL (70-99) Lactic Acid Level 1.6 mmol/L (0.4-2.0) Calcium Level 9.6 mg/dL (8.5-10.1) Magnesium Level 1.9 mg/dL (1.8-2.4) Total Bilirubin 0.8 mg/dL (0.2-1.0) Aspartate Amino Transf (AST/SGOT) 44 U/L (15-37) Alanine Aminotransferase (ALT/SGPT) 77 U/L (14-59) Alkaline Phosphatase 138 U/L (46-116) Creatine Kinase 61 U/L (26-192) Creatine Kinase MB (Mass) 0.6 ng/mL (0.0-3.6) Creatine Kinase MB Relative Index % (0-4) Troponin I Quantitative < 0.017 ng/mL (0.000-0.055) < 0.017 ng/mL (0.000-0.055) Total Protein 7.7 g/dL (6.4-8.2) Albumin 3.7 g/dL (3.4-5.0) Albumin/Globulin Ratio 0.9 (1.0-1.7) Serum Test, Qualitative Negative (NEG) Urine Collection Type Unknown Urine Color Straw Urine Clarity Clear Urine pH 6.5 (<5.0-8.0) Urine Specific Albers <=1.005 (1.000-1.030) Urine Protein Negative mg/dL (NEG-TRACE) Urine Glucose (UA) Negative mg/dL (NEG) Urine Ketones (Stick) Negative mg/dL (NEG) Urine Blood Negative (NEG) Urine Nitrite Negative (NEG) Urine Bilirubin Negative (NEG) Urine Urobilinogen Dipstick 0.2 mg/dL (0.2 mg/dL) Urine Leukocyte Esterase Negative (NEG) Urine RBC 0 /HPF (0-2) Urine WBC 0 /HPF (0-4) Urine Squamous Epithelial Cells Mod /LPF Urine Bacteria Moderate /HPF (0-FEW) Test 01/17/20 23:13 01/19/20 05:00 Troponin I Quantitative < 0.017 ng/mL (0.000-0.055) White Blood Count 12.8 x10^3/uL (4.0-11.0) Red Blood Count 5.10 x10^6/uL (3.50-5.40) Hemoglobin 15.8 g/dL (12.0-15.5) Hematocrit 46.7 % (36.0-47.0) Mean Corpuscular Volume 92 fL (79-100) Mean Corpuscular Hemoglobin 31 pg (25-35) Mean Corpuscular Hemoglobin Concent 34 g/dL (31-37) Red Cell Distribution Width 12.8 % (11.5-14.5) Platelet Count 270 x10^3/uL (140-400) Neutrophils (%) (Auto) 68 % (31-73) Lymphocytes (%) (Auto) 23 % (24-48) Monocytes (%) (Auto) 7 % (0-9) Eosinophils (%) (Auto) 1 % (0-3) Basophils (%) (Auto) 1 % (0-3) Neutrophils # (Auto) 8.8 x10^3/uL (1.8-7.7) Lymphocytes # (Auto) 2.9 x10^3/uL (1.0-4.8) Monocytes # (Auto) 0.9 x10^3/uL (0.0-1.1) Eosinophils # (Auto) 0.2 x10^3/uL (0.0-0.7) Basophils # (Auto) 0.1 x10^3/uL (0.0-0.2) Sodium Level 137 mmol/L (136-145) Potassium Level 3.5 mmol/L (3.5-5.1) Chloride Level 99 mmol/L (98-107) Carbon Dioxide Level 26 mmol/L (21-32) Anion Gap 12 (6-14) Blood Urea Nitrogen 11 mg/dL (7-20) Creatinine 0.9 mg/dL (0.6-1.0) Estimated GFR (Cockcroft-Gault) 66.8 Glucose Level 189 mg/dL (70-99) Calcium Level 9.0 mg/dL (8.5-10.1) Laboratory Tests Test 01/19/20 05:00 White Blood Count 12.8 x10^3/uL (4.0-11.0) Red Blood Count 5.10 x10^6/uL (3.50-5.40) Hemoglobin 15.8 g/dL (12.0-15.5) Hematocrit 46.7 % (36.0-47.0) Mean Corpuscular Volume 92 fL (79-100) Mean Corpuscular Hemoglobin 31 pg (25-35) Mean Corpuscular Hemoglobin Concent 34 g/dL (31-37) Red Cell Distribution Width 12.8 % (11.5-14.5) Platelet Count 270 x10^3/uL (140-400) Neutrophils (%) (Auto) 68 % (31-73) Lymphocytes (%) (Auto) 23 % (24-48) Monocytes (%) (Auto) 7 % (0-9) Eosinophils (%) (Auto) 1 % (0-3) Basophils (%) (Auto) 1 % (0-3) Neutrophils # (Auto) 8.8 x10^3/uL (1.8-7.7) Lymphocytes # (Auto) 2.9 x10^3/uL (1.0-4.8) Monocytes # (Auto) 0.9 x10^3/uL (0.0-1.1) Eosinophils # (Auto) 0.2 x10^3/uL (0.0-0.7) Basophils # (Auto) 0.1 x10^3/uL (0.0-0.2) Sodium Level 137 mmol/L (136-145) Potassium Level 3.5 mmol/L (3.5-5.1) Chloride Level 99 mmol/L (98-107) Carbon Dioxide Level 26 mmol/L (21-32) Anion Gap 12 (6-14) Blood Urea Nitrogen 11 mg/dL (7-20) Creatinine 0.9 mg/dL (0.6-1.0) Estimated GFR (Cockcroft-Gault) 66.8 Glucose Level 189 mg/dL (70-99) Calcium Level 9.0 mg/dL (8.5-10.1) Microbiology 01/17/20 Urine Culture - Final, Complete Medications Current Medications Aspirin (Julia Aspirin) 325 mg 1X ONCE PO Last administered on 01/17/20at 15:58; Start 01/17/20 at 15:00; Stop 01/17/20 at 15:06; Status DC Iohexol (Omnipaque 350 Mg/ml) 75 ml 1X ONCE IV Last administered on 01/17/20at 15:39; Start 01/17/20 at 15:30; Stop 01/17/20 at 15:31; Status DC Info (CONTRAST GIVEN -- Rx MONITORING) 1 each PRN DAILY PRN MC SEE COMMENTS Last administered on 01/17/20at 19:46; Start 01/17/20 at 15:30; Stop 01/19/20 at 15:29 Acetaminophen (Tylenol) 650 mg PRN Q6HRS PRN PO TEMP > 100.4F; Start 01/18/20 at 08:45 Acetaminophen (Tylenol Supp) 650 mg PRN Q4HRS PRN NC TEMP > 100.4F; Start 01/18/20 at 08:45 Aspirin (Ecotrin) 325 mg DAILYWBKFT PO Last administered on 01/19/20at 08:32; Start 01/19/20 at 08:00 Aspirin (Aspirin Rectal Supp) 300 mg PRN DAILY PRN NC IF UNABLE TO TAKE PO; Start 01/18/20 at 08:45 Atorvastatin Calcium (Lipitor) 40 mg HS PO Last administered on 01/18/20 20:19; Start 01/18/20 at 21:00 Lisinopril (Prinivil) 40 mg DAILY PO Last administered on 01/19/20 08:32; Start 01/18/20 at 10:30 Clonazepam (KlonoPIN) 0.5 mg PRN TID PRN PO ANXIETY / AGITATION Last administered on 01/19/20at 09:53; Start 01/18/20 at 09:45 Non-Formulary Medication (Lurasidone Hcl (Latuda)) 60 mg DAILY PO ; Start 01/19/20 at 09:00; Status UNV Pantoprazole Sodium (Protonix) 40 mg DAILYAC PO Last administered on 01/19/20 08:32; Start 01/18/20 at 10:30 Prazosin HCl (Minipress) 5 mg QHS PO Last administered on 01/18/20at 20:20; Start 01/18/20 at 21:00 Trazodone HCl (Desyrel) 150 mg QHS PO Last administered on 01/18/20 20:19; Start 01/18/20 at 21:00 Non-Formulary Medication (Vilazodone Hydrochloride (Viibryd)) 1 tab DAILY PO ; Start 01/19/20 at 09:00; Status UNV Diphenhydramine HCl (Benadryl) 25 mg PRN Q6HRS PRN PO ITCHING Last administered on 01/19/20 09:53; Start 01/18/20 at 13:30 Tizanidine HCl (Zanaflex) 4 mg PRN Q8HRS PRN PO MUSCLE SPASMS Last administered on 01/19/20at 11:35; Start 01/19/20 at 11:00 Active Scripts Active Reported Viibryd (Vilazodone Hydrochloride) 40 Mg Tablet 1 Tab PO DAILY Latuda (Lurasidone Hcl) 60 Mg Tablet 60 Mg PO DAILY Clonazepam 1 Mg Tablet 0.5 Mg PO PRN TID PRN Prazosin Hcl 5 Mg Capsule 1 Cap PO QHS Atorvastatin Calcium 40 Mg Tablet 40 Mg PO HS Trazodone Hcl 150 Mg Tablet 150 Mg PO HS Lisinopril 40 Mg Tablet 40 Mg PO DAILY Omeprazole 40 Mg Capsule.dr 40 Mg PO DAILY Vitals/I & O Vital Sign - Last 24 Hours 01/18/20 01/18/20 01/18/20 01/18/20 14:37 19:00 20:00 20:20 Temp 98.0 97.8 98.0 97.8 Pulse 67 76 76 Resp 20 18 B/P (MAP) 132/81 (98) 146/90 (108) 146/90 Pulse Ox 95 97 O2 Delivery Room Air Room Air Room Air 01/18/20 01/19/20 01/19/20 01/19/20 22:56 03:04 07:00 07:30 Temp 97.9 98.0 98.2 97.9 98.0 98.2 Pulse 84 118 105 Resp 23 23 20 B/P (MAP) 118/71 (87) 118/71 (87) 126/76 (93) Pulse Ox 98 99 93 O2 Delivery Room Air Room Air Room Air Room Air 01/19/20 01/19/20 08:32 10:54 Temp 97.9 97.9 Pulse 105 86 Resp 20 B/P (MAP) 126/76 152/96 (114) Pulse Ox 96 O2 Delivery Room Air Intake and Output 01/18/20 01/18/20 01/19/20 15:00 23:00 07:00 Intake Total 250 ml 320 ml 700 ml Output Total 450 ml 1050 ml Balance -200 ml -730 ml 700 ml Justifications for Admission Other Justification LORENA QUINTANA MD Jan 19, 2020 13:26
--- NOTE | 2020-01-19 14:31 | NUR ---
SS following up with discharge planning. [facility], ; fax [phone], agreeable to accept pt for jd services. Referral and discharge orders sent by nurse navigator.
--- NOTE | 2020-01-19 15:39 | NUR ---
Discharge Note: TARIQ FINNEY [address] Discharge instructions and discharge home medications reviewed with Patient and a copy given. All questions have been answered and understanding verbalized. The following instructions and handouts were given: new medication, walker use, and post stroke therapy. Discontinued lines and drains: peripheral line discontinued. Patient discharged to home with services via wheelchair accompanied by spouse.
== END 2020-01-19 15:30 | disposition home health service (06) | DRG 65 ==
LOC: ER 14:27 → ED HOLD 16:42 → 2 SOUTH 18:20
PROVIDERS: ADMIT Family Medicine; ATTEND Family Medicine
DX: I63.9 Cerebral infarction, unspecified (principal); G81.91 Hemiplegia, unspecified affecting right dominant side; Z68.41 Body mass index [BMI] 40.0-44.9, adult; I67.82 Cerebral ischemia; E66.9 Obesity, unspecified; E78.00 Pure hypercholesterolemia, unspecified; E78.5 Hyperlipidemia, unspecified; F12.90 Cannabis use, unspecified, uncomplicated; F17.210 Nicotine dependence, cigarettes, uncomplicated; F32.9 Major depressive disorder, single episode, unspecified; F41.9 Anxiety disorder, unspecified; I10 Essential (primary) hypertension; I65.22 Occlusion and stenosis of left carotid artery; M21.371 Foot drop, right foot; Z80.3 Family history of malignant neoplasm of breast; Z82.3 Family history of stroke; Z88.0 Allergy status to penicillin; G43.909 Migraine, unspecified, not intractable, without status migrainosus; Z88.8 Allergy status to other drugs, medicaments and biological substances; Z79.899 Other long term (current) drug therapy; Z90.49 Acquired absence of other specified parts of digestive tract
CPT/HCPCS: 36415; 70450; 70496; 70498; 70551; 71045; 80048; 80053; 80061; 81001; 82553; 83605; 83735; 84484; 84703; 85025; 85610; 85730; 87086; 93005; 93306; Q9967; 92610-GN; 97110-GP; 97116-GP; 97530-GO; 97530-GP; 97535-GO; 99291-25; G0378; Q0163

== ENCOUNTER 2020-01-26 03:45 | Inpatient (IN) | payer SELFPAY ==
[~2020-01-26] VITALS: Ht 165.1 cm; Wt 110.0 kg
[~2020-01-26 03:45] MED LIST: ASPI325T11 PO; ATOR40TA59 PO; CLONAZEPAM1 MG PO; LISI-130 PO; LURA60TA PO; OMEP40CA45 PO; PRAZ5CAP2 PO; TRAZ150T49 PO; VILA40TA PO
[2020-01-26] MEDS ORDERED: ONDANSETRON PF 4 MG/2 ML VIAL. ONE (04:08)
[2020-01-26 04:26] LABS: BASO # 0.1 x10^3/uL (0.0-0.2); BASO % 1 % (0-3); EOS # 0.2 x10^3/uL (0.0-0.7); EOS % 2 % (0-3); HEMATOCRIT 43.4 % (36.0-47.0); LYMPH # 2.5 x10^3/uL (1.0-4.8); LYMPH % 21 % (24-48); MEAN CORPUSCULAR HEMOGLOBIN 32 pg (25-35); MEAN CORPUSCULAR HGB CONC 35 g/dL (31-37); MEAN CORPUSCULAR VOLUME 92 fL (79-100); MONO % 9 % (0-9); NEUT % 68 % (31-73); PLATELET COUNT 311 x10^3/uL (140-400); RED CELL DISTRIBUTION WIDTH 12.8 % (11.5-14.5); WHITE BLOOD COUNT 11.8 x10^3/uL (4.0-11.0)
[2020-01-26] MEDS ORDERED: NOREPINEPHRINE VIAL 8 MG in IV DEXTROSE 5% 250 ML IV ONE (04:30)
[2020-01-26 04:36] LABS: CALCIUM 9.4 mg/dL (8.5-10.1); CREATININE 2.2 mg/dL (0.6-1.0); GFR 23.8; POTASSIUM 4.1 mmol/L (3.5-5.1)
[2020-01-26 04:41] LABS: ALBUMIN 3.4 g/dL (3.4-5.0); TOTAL BILIRUBIN 0.8 mg/dL (0.2-1.0); TOTAL PROTEIN 6.9 g/dL (6.4-8.2)
[2020-01-26] MEDS: IV NORMAL SALINE 1000ML BAG 1,000 ML IV SCH ×3 (05:00→10:15)
--- NOTE | 2020-01-26 05:40 | PHYS DOC ---
Past Medical History Past Medical History: Anxiety, Depression, High Cholesterol, Hypertension Past Surgical History: No Surgical History Smoking Status: Current Every Day Smoker Alcohol Use: None Drug Use: Marijuana General Adult EDM: Chief Complaint: MECHANICAL FALL HPI: HPI: The history was obtained from the patient. Patient is a 49-year-old female with PMH hypertension, hyperlipidemia, anxiety, mental developmental delay, recent stroke who presents with a chief complaint of fall. Patient states she fell off her home commode just prior to arrival. She notes that she recent was diagnosed with a stroke approximately week ago. She states she has almost no movement of her right upper or right lower extremities at this time. She states today while getting on the commode she lost her balance and fell onto her right side. She was unable to get herself up. She does live at home with her who is also unable to get herself up. She states that she was not placed into a rehabilitation file because she does not have insurance. She does note that she took 2 Klonopin tablets tonight for anxiety. She also took her nightly trazodone and oral Benadryl. She states that all these medications are typical for her except for she took 1 extra Klonopin tablet totaling 1 mg. Denies chest pain or shortness breath. Dysuria, hematuria, or polyuria. No other complaints. Review of Systems: Review of Systems: Constitutional: Denies fever or chills. [] Eyes: Denies change in visual acuity. [] HENT: Denies nasal congestion or sore throat. [] Respiratory: Denies cough or shortness of breath. [] Cardiovascular: Denies chest pain or edema. [] GI: Denies abdominal pain, nausea, vomiting, bloody stools or diarrhea. [] : Denies dysuria. [] Musculoskeletal: Positive for fall Integument: Denies rash. [] Neurologic: Denies headache, focal weakness or sensory changes. [] Endocrine: Denies polyuria or polydipsia. [] Lymphatic: Denies swollen glands. [] Psychiatric: Denies depression or anxiety. [] Heart Score: Risk Factors: Risk Factors: DM, Current or recent (<one month) smoker, HTN, HLP, family history of CAD, obesity. Risk Scores: Score 0 - 3: 2.5% MACE over next 6 weeks - Discharge Home Score 4 - 6: 20.3% MACE over next 6 weeks - Admit for Clinical Observation Score 7 - 10: 72.7% MACE over next 6 weeks - Early Invasive Strategies Current Medications: Current Medications Medications (Trade) Dose Ordered Sig/Diony Start Time Stop Time Status Last Admin Dose Admin Norepinephrine Bitartrate 8 mg/ Dextrose 258 ml @ 0 mls/hr 1X ONCE 01/26/20 04:30 01/26/20 04:31 DC Ondansetron HCl (Zofran) 4 mg STK-MED ONCE 01/26/20 04:08 01/26/20 04:08 DC Allergies: Allergies: Allergies Coded Allergies Type Severity Reaction Last Updated Verified Penicillins Allergy Intermediate 01/17/20 Yes ceftriaxone Allergy Intermediate 01/17/20 Yes lorazepam Allergy Intermediate 01/17/20 Yes Physical Exam: PE: Constitutional: Well developed, well nourished, no acute distress, non-toxic appearance. [] HENT: Normocephalic, atraumatic, bilateral external ears normal, oropharynx mois t, no oral exudates, nose normal. [] Eyes: PERRLA, EOMI, conjunctiva normal, no discharge. [] Neck: Normal range of motion, no tenderness, supple, no stridor. [] Cardiovascular:Heart rate regular rhythm, no murmur [] Lungs & Thorax: Bilateral breath sounds clear to auscultation [] Abdomen: soft, no tenderness, no masses, no pulsatile masses. [] Skin: Warm, dry, no erythema, no rash. [] Back: No tenderness, no CVA tenderness. [] Extremities: No tenderness, no cyanosis, no clubbing, ROM intact, no edema. [] Neurologic: Alert and oriented X 3, almost complete paralysis of the right upper and right lower extremities. +5-5 motor strength in the left upper and left lower extremities. Sensation intact in the left. Diminished difficulty on the right. Baseline per patient. Psychologic: Affect normal, judgement normal, mood normal. [] Current Patient Data: Labs: Laboratory Tests Test 01/26/20 04:12 White Blood Count 11.8 x10^3/uL (4.0-11.0) H Red Blood Count 4.70 x10^6/uL (3.50-5.40) Hemoglobin 15.0 g/dL (12.0-15.5) Hematocrit 43.4 % (36.0-47.0) Mean Corpuscular Volume 92 fL (79-100) Mean Corpuscular Hemoglobin 32 pg (25-35) Mean Corpuscular Hemoglobin Concent 35 g/dL (31-37) Red Cell Distribution Width 12.8 % (11.5-14.5) Platelet Count 311 x10^3/uL (140-400) Neutrophils (%) (Auto) 68 % (31-73) Lymphocytes (%) (Auto) 21 % (24-48) L Monocytes (%) (Auto) 9 % (0-9) Eosinophils (%) (Auto) 2 % (0-3) Basophils (%) (Auto) 1 % (0-3) Neutrophils # (Auto) 8.0 x10^3/uL (1.8-7.7) H Lymphocytes # (Auto) 2.5 x10^3/uL (1.0-4.8) Monocytes # (Auto) 1.0 x10^3/uL (0.0-1.1) Eosinophils # (Auto) 0.2 x10^3/uL (0.0-0.7) Basophils # (Auto) 0.1 x10^3/uL (0.0-0.2) Sodium Level 133 mmol/L (136-145) L Potassium Level 4.1 mmol/L (3.5-5.1) Chloride Level 97 mmol/L (98-107) L Carbon Dioxide Level 23 mmol/L (21-32) Anion Gap 13 (6-14) Blood Urea Nitrogen 25 mg/dL (7-20) H Creatinine 2.2 mg/dL (0.6-1.0) H Estimated GFR (Cockcroft-Gault) 23.8 BUN/Creatinine Ratio 11 (6-20) Glucose Level 255 mg/dL (70-99) H Lactic Acid Level 2.1 mmol/L (0.4-2.0) H Calcium Level 9.4 mg/dL (8.5-10.1) Total Bilirubin 0.8 mg/dL (0.2-1.0) Aspartate Amino Transferase (AST) 53 U/L (15-37) H Alanine Aminotransferase (ALT) 81 U/L (14-59) H Alkaline Phosphatase 110 U/L (46-116) Total Protein 6.9 g/dL (6.4-8.2) Albumin 3.4 g/dL (3.4-5.0) Albumin/Globulin Ratio 1.0 (1.0-1.7) Lipase 141 U/L (73-393) Laboratory Tests 01/26/20 04:12 Laboratory Tests 01/26/20 04:12 EKG: EKG: EKG consistent with normal sinus rhythm. Ventricular rate of 80 bpm. Left axis noted. T wave inversion noted in lead V3. Overall no acute ischemic changes. [] Radiology/Procedures: Radiology/Procedures: [] Procedure Central Line: Central Venous Line Procedure Note [place] Protocol: 1. Pre-procedure verification: - Correct patient, correct site, correct procedure (correct patient verified against two identifiers: name and date of ) - H&P or H&P update complete and in medical record - Review of: Radiology images, scans, labs, pathology, biopsy reports with appropriate identifiers (if applicable) - Any required blood products, implants, devices, and/or special equipment for the procedure (if applicable) 2. Site Markings - when appropriate: N/A 3. Time Out: Time out performed (Includes validating the following: Correct patient, correct side/site marked and procedure to performed, correct position) Procedure Details: PROCEDURE: Central Line Placement INDICATION: Hypotension and central meds CONSENT: Written consent obtained Risks include: bleeding, infection, pneumothorax, pain, PROCEDURE: Time out performed. The patient's right internal jugular was initially visualized via ultrasound. The area was then cleansed with Chlorhexadine Gluconate x30 seconds and anesthetized with 3 ml 1% lidocaine. The area was then prepped and drapped in sterile fashion, including maximum barrier precautions. Under sterile technique and U/S guidence, the introducer needle was cannulated into the right internal jugular vein. The guidewire was then threaded into the vein. The dilator was then placed over the guidewire and into the vein. It was then removed and then the Arrow 7Fr triple-lumen catheter was placed over the guidewire and the guidewire removed via the distal port. Dark red, non-pulsatile blood was aspirated from each port; each port was then flushed with NSS. The CVC was then secured with a stat-lock. A blue biodisk was placed after the area was cleansed again. The site was then dressed with an Opsite. CXR ordered to confirm placement. EBL minimal Keyur Dc DO Impression: [facility] [address] [place] [address] IMAGING REPORT Signed PATIENT: TARIQ FINNEY DACCOUNT: [id number] : 1970 LOCATION: ER AGE: 49 SEX: F EXAM STATUS: REG ER ORD. PHYSICIAN: KEYUR DC DO REASON: hypotension, LINE PLACEMENT PROCEDURE: CHEST AP ONLY INDICATION: Reason: hypotension, LINE PLACEMENT / Spl. Instructions: / History: COMPARISON: January 17, 2020 FINDINGS: Single view of chest obtained. Hypoexpanded exam with cardiac silhouette similar to prior. Right-sided vascular catheter with tip projecting over the SVC. No focal airspace consolidation or pulmonary edema. IMPRESSION: * Central venous catheter with tip at SVC. Electronically signed by: Gilberto Vega MD (01/26/2020 6:09 AM) [id number] DICTATED and SIGNED BY: GILBERTO VEGA MD DATE: 01/26/20608 Course & Med Decision Making: Course & Med Decision Making Pertinent Labs and Imaging studies reviewed. (See chart for details) [] Patient is a 49-year-old female who presents with chief complaint of fall from commode at home. Initial vital signs concerning for hypotension. Initial blood pressure 60/40. Patient remains on somewhat somnolent but easily arousable. She remained oriented x3. Patient was given 2 L normal saline bolus. She continued to remain somewhat hypotensive with a blood pressure of 75/30. Remains somewhat somnolent but arousable. No clear etiology of her hypotension. Overall low suspicion for septic shock given she is afebrile. Additional 2 L of normal saline were administered given my concern for potential polypharmacy. She does note that she took an additional dose of Klonopin at home and she also takes trazodone and Benadryl as well. Patient's blood pressure was slow to respond after the third liter normal saline bolus. Decision was made to place a right internal jugular central line for potential Levophed. After a total of 4 L normal saline had been administered and 0.1 mcg/kg/min of Levophed was started the patient's blood pressure responded appropriately. After starting the minimal dose of Levophed her pressure increased to 150/80. This was quickly stopped and her blood pressure is now remained stable. Overall unclear etiology regarding her low blood pressure. Blood cultures obtained and pending. Given she does have a mild lactate of 2.1 and recent hospitalization vancomycin and cefepime were administered. CT imaging obtained and unremarkable. Patient will require hospitalization for monitoring of her low blood pressure. Dragon Disclaimer: Dragon Disclaimer: This electronic medical record was generated, in whole or in part, using a voice recognition dictation system. Departure Departure Impression: Primary Impression: Fall Qualified Codes: W19.XXXA - Unspecified fall, initial encounter Additional Impressions: Hypotension Qualified Codes: I95.9 - Hypotension, unspecified SHEILA (acute kidney injury) Disposition: ADMITTED INPATIENT Condition: STABLE Referrals: UMAIR PHAN (PCP) Justicifation of Admission Dx: Justifications for Admission: Justification of Admission Dx: Yes Acute Renal Failure: 3-Fold Rise in Serum CreKEYUR Khan DO Jan 26, 2020 05:40
[2020-01-26] MEDS ORDERED: NALOXONE 0.4 MG/ML VIAL. IV ONE (05:45)
[2020-01-26 05:53] LABS: BILIRUBIN,URINE NEGATIVE (NEG); CLARITY,URINE CLEAR; COLOR,URINE YELLOW; NITRITE,URINE NEGATIVE (NEG); PH,URINE 5.5 (<5.0-8.0); PROTEIN,URINE NEGATIVE (NEG-TRACE); UROBILINOGEN,URINE 0.2 mg/dL (0.2 mg/dL)
--- NOTE | 2020-01-26 06:12 | RAD ---
INDICATION: Reason: hypotension, LINE PLACEMENT / Spl. Instructions: / History: COMPARISON: January 17, 2020 FINDINGS: Single view of chest obtained. Hypoexpanded exam with cardiac silhouette similar to prior. Right-sided vascular catheter with tip projecting over the SVC. No focal airspace consolidation or pulmonary edema. IMPRESSION: * Central venous catheter with tip at SVC. Electronically signed by: Gilberto Zavala MD (01/26/2020 6:09 AM) [id number]
[2020-01-26 06:13] LABS: AMORPHOUS SEDIMENT,UR PRESENT /HPF; BACTERIA,URINE 0 /HPF (0-FEW); RBC,URINE 0 /HPF (0-2); SQUAMOUS EPITHELIAL CELL,UR FEW /LPF; WBC,URINE 0 /HPF (0-4)
[2020-01-26] MEDS ORDERED: CEFEPIME HCL IV Push 1 GM VIAL. IVP ONE (06:15)
[2020-01-26] MEDS ORDERED: VANCOMYCIN 2.5 GM in IV NORMAL SALINE 500ML BAG 500 ML IV ONE (06:15)
[2020-01-26] MEDS ORDERED: ONDANSETRON PF 4 MG/2 ML VIAL. IV PRN ×2 (06:30→07:15)
[2020-01-26] MEDS ORDERED: VANCOMYCIN 2 GM in IV NORMAL SALINE 500ML BAG 500 ML IV ONE (06:30)
--- NOTE | 2020-01-26 06:34 | RAD ---
INDICATION: Reason: fall from commode / Spl. Instructions: / History: COMPARISON: January 18, 2020 TECHNIQUE: Axial CT images obtained through the head and cervical spine. One or more of the following individualized dose reduction techniques were utilized for this examination: 1. Automated exposure control; 2. Adjustment of the mA and/or kV according to patient size; 3. Use of iterative reconstruction technique. FINDINGS: Head: Low-density within the left cerebral hemisphere at the previously identified site of ischemia could be secondary to evolution of the patient's known stroke with associated edema. No acute intracranial hemorrhage. No hydrocephalus. Suprasellar cistern is not effaced. Cervical spine: Degenerative changes of the cervical spine with osteophyte formation at the vertebral body endplates as well as uncovertebral and facet hypertrophy. No evidence of acute fracture or dislocation. Partial visualization of vascular catheter at the right side of the neck. Partial visualization of high density material at the left side of the neck IMPRESSION: * No acute intracranial hemorrhage. * Low-density within the left cerebral hemisphere at the site of previously identified stroke. This could be secondary to edema related to the patient's recent stroke. * Degenerative changes of the cervical spine. * High density material seen within the soft tissues the left side of the neck which can be seen with soft tissue contusion as well as blood within the soft tissues. Electronically signed by: Gilberto Zavala MD (01/26/2020 6:31 AM) [id number]
[2020-01-26] MEDS ORDERED: DEXTROSE 50% 25 GM / 50ML DISP.SYRIN. IV PRN (07:15)
--- NOTE | 2020-01-26 07:19 | EKG ---
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
[2020-01-26] MEDS: INSULIN LISPRO 300 UNITS/3 ML VIAL. SQ SCH ×4 (08:00→21:00)
[2020-01-26 08:30] VITALS: BP 147/75
[2020-01-26 10:52] VITALS: BP 109/67
[2020-01-26] MEDS: ACETAMINOPHEN 325 MG TABLET. PO PRN (10:59)
[2020-01-26] MEDS: PANTOPRAZOLE 40 MG TABLET.DR. PO SCH (10:59)
[2020-01-26] MEDS: ASPIRIN ENTERIC COATED 325 MG TABLET.DR. PO SCH (10:59)
[2020-01-26] MEDS: LISINOPRIL 20 MG TABLET PO SCH (10:59)
--- NOTE | 2020-01-26 11:23 | PDOC1 ---
History and Physical Date of Service: DOS: DATE: 01/26/20 TIME: 11:19 Chief Complaint: Problems: (1) Hypotension (2) Fall (3) SHEILA (acute kidney injury) Chief Complain: Fell off the commode Recent stroke Hypotension History of Present Illness: HPI: This is a middle-aged white female who had a stroke a week ago and has right sided deficits She was post to have home health at home but states they never came She apparently was on the commode and fell off When she arrived in the ER her blood pressure was 60 over palp They gave her several bags of IV fluids plus she got IV Levophed while in the ER Her blood pressure responded she got up to 140 She is now been admitted to the cardiac floor we are going to repeat her neurologic work-up Past Medical/Surgical History: PMH/PSH: Past Medical History: Anxiety, Depression, High Cholesterol, Hypertension Past Surgical History: No Surgical History Smoking Status: Current Every Day Smoker Alcohol Use: None Drug Use: Marijuana Allergies: Allergies: Coded Allergies: Penicillins (Verified Allergy, Intermediate, 01/17/20) ceftriaxone (Verified Allergy, Intermediate, 01/17/20) lorazepam (Verified Allergy, Intermediate, 01/17/20) Family History: Family History: Hypertension Social History: Social History: She is on disability does not drink or take drugs she smokes Current Medications: Current Medications Current Medications Ondansetron HCl (Zofran) 4 mg STK-MED ONCE .ROUTE ; Start 01/26/20 at 04:08; Stop 01/26/20 at 04:08; Status DC Norepinephrine Bitartrate 8 mg/ Dextrose 258 ml @ 0 mls/hr 1X ONCE IV ; Start 01/26/20 at 04:30; Stop 01/26/20 at 04:31; Status DC Naloxone HCl (Narcan) 0.4 mg 1X ONCE IV Last administered on 01/26/20at 06:08; Start 01/26/20 at 05:45; Stop 01/26/20 at 05:46; Status DC Vancomycin HCl 2.5 gm/Sodium Chloride 500 ml @ 250 mls/hr 1X ONCE IV ; Start 01/26/20 at 06:15; Stop 01/26/20 at 08:14; Status UNV Cefepime HCl (Maxipime) 1 gm 1X ONCE IVP Last administered on 01/26/20at 06:53; Start 01/26/20 at 06:15; Stop 01/26/20 at 06:16; Status DC Vancomycin HCl 2 gm/Sodium Chloride 500 ml @ 250 mls/hr 1X ONCE IV Last administered on 01/26/20at 06:54; Start 01/26/20 at 06:30; Stop 01/26/20 at 08:29; Status DC Ondansetron HCl (Zofran) 4 mg PRN Q8HRS PRN IV NAUSEA/VOMITING; Start 01/26/20 at 06:30; Stop 01/26/20 at 07:08; Status DC Ondansetron HCl (Zofran) 4 mg PRN Q4HRS PRN IV NAUSEA/VOMITING; Start 01/26/20 at 07:15 Aspirin (Ecotrin) 325 mg DAILYWBKFT PO Last administered on 01/26/20at 10:59; Start 01/26/20 at 08:00 Atorvastatin Calcium (Lipitor) 40 mg HS PO ; Start 01/26/20 at 21:00 Insulin Human Lispro (HumaLOG) 0-7 UNITS TIDWMEALHC SQ ; Start 01/26/20 at 08:00 Dextrose (Dextrose 50%-Water Syringe) 12.5 gm PRN Q15MIN PRN IV SEE COMMENTS; Start 01/26/20 at 07:15 Sodium Chloride 1,000 ml @ 1,000 mls/hr Q1H IV ; Start 01/26/20 at 07:15; Stop 01/26/20 at 11:14; Status DC Lisinopril (Prinivil) 40 mg DAILY PO Last administered on 01/26/20at 10:59; Start 01/26/20 at 11:00 Clonazepam (KlonoPIN) 0.5 mg PRN TID PRN PO ANXIETY / AGITATION; Start 01/26/20 at 10:15 Non-Formulary Medication (Lurasidone Hcl (Latuda)) 60 mg DAILY PO ; Start 01/27/20 at 09:00; Status UNV Pantoprazole Sodium (Protonix) 40 mg DAILYAC PO Last administered on 01/26/20at 10:59; Start 01/26/20 at 11:00 Prazosin HCl (Minipress) 5 mg QHS PO ; Start 01/26/20 at 21:00 Trazodone HCl (Desyrel) 150 mg QHS PO ; Start 01/26/20 at 21:00 Non-Formulary Medication (Vilazodone Hydrochloride (Viibryd)) 1 tab DAILY PO ; Start 01/27/20 at 09:00; Status UNV Acetaminophen (Tylenol) 650 mg PRN Q6HRS PRN PO MODERATE PAIN 4-6 Last administered on 01/26/20at 10:59; Start 01/26/20 at 10:45 Active Scripts Active Aspirin Ec (Aspirin) 325 Mg Tablet. 325 Mg PO DAILYWBKFT Reported Viibryd (Vilazodone Hydrochloride) 40 Mg Tablet 1 Tab PO DAILY Latuda (Lurasidone Hcl) 60 Mg Tablet 60 Mg PO DAILY Clonazepam 1 Mg Tablet 0.5 Mg PO PRN TID PRN Prazosin Hcl 5 Mg Capsule 1 Cap PO QHS Atorvastatin Calcium 40 Mg Tablet 40 Mg PO HS Trazodone Hcl 150 Mg Tablet 150 Mg PO HS Lisinopril 40 Mg Tablet 40 Mg PO DAILY Omeprazole 40 Mg Capsule. 40 Mg PO DAILY ROS: Review of Systems Review of System REVIEW OF SYSTEMS: GENERAL: Complains of weakness SKIN: No bruising, hair changes or rashes. EYES: No blurred, double or loss of vision. NOSE AND THROAT: No history of nosebleeds, hoarseness or sore throat. HEART: No history of palpitations, chest pain or shortness of breath on exertion. LUNGS: Denies cough, hemoptysis, wheezing or shortness of breath. GASTROINTESTINAL: Denies changes in appetite, nausea, vomiting, diarrhea or constipation. GENITOURINARY: No history of frequency, urgency, hesitancy or nocturia. NEUROLOGIC: Complains of weakness that seems to have worsened on the right side compared to her previous right-sided residual deficit from her recent stroke PSYCHIATRIC: Complains of depression ENDOCRINE: No history of heat or cold intolerance, polyuria or polydipsia. EXTREMITIES: Denies joint pain, pain on walking or stiffness. Physical Exam: Vital Signs: Vital Signs Date Time Temp Pulse Resp B/P (MAP) Pulse Ox O2 Delivery O2 Flow Rate FiO2 01/26/20 10:59 82 140/69 01/26/20 10:52 97.5 22 91 Room Air 97.5 01/26/20 08:30 2.0 Physcial Exam: GEN: No apparent distress pleasant HEENT: Normal cephalic, atraumatic, external auditory canals are patent EYES: Extraocular muscles are intact, pupil are equally round and reactive to light and accommodation MUSCULOSKELETAL: Well developed , well nourished, good range of motion ENDOCRINE: No thyromegaly was palpated LYMPHATICS: No cervical chain or axillary nodes were noted HEMATOPOIETIC: No bruising NECK: Supple, no JVD, no thyromegaly was noted LUNGS: Clear to auscultation in all lung tellez without rhonchi or wheezing HEART: RRR, S!, S2 present. Peripheral pulses intact, no obvious murmurs noted ABDOMEN: Soft, nontender. 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 about 1 out of 5 the right leg does not move PSYCHIATRIC: A little depressed but pleasant SKIN: No ulcerations or rashes, good skin turgor, no jaundice VASCULAR: Good capillary refill, neurovascular bundle appears to be intact Labs: Labs: Laboratory Tests Test 01/26/20 04:12 01/26/20 05:39 01/26/20 05:49 01/26/20 09:31 White Blood Count 11.8 x10^3/uL (4.0-11.0) Red Blood Count 4.70 x10^6/uL (3.50-5.40) Hemoglobin 15.0 g/dL (12.0-15.5) Hematocrit 43.4 % (36.0-47.0) Mean Corpuscular Volume 92 fL (79-100) Mean Corpuscular Hemoglobin 32 pg (25-35) Mean Corpuscular Hemoglobin Concent 35 g/dL (31-37) Red Cell Distribution Width 12.8 % (11.5-14.5) Platelet Count 311 x10^3/uL (140-400) Neutrophils (%) (Auto) 68 % (31-73) Lymphocytes (%) (Auto) 21 % (24-48) Monocytes (%) (Auto) 9 % (0-9) Eosinophils (%) (Auto) 2 % (0-3) Basophils (%) (Auto) 1 % (0-3) Neutrophils # (Auto) 8.0 x10^3/uL (1.8-7.7) Lymphocytes # (Auto) 2.5 x10^3/uL (1.0-4.8) Monocytes # (Auto) 1.0 x10^3/uL (0.0-1.1) Eosinophils # (Auto) 0.2 x10^3/uL (0.0-0.7) Basophils # (Auto) 0.1 x10^3/uL (0.0-0.2) Sodium Level 133 mmol/L (136-145) Potassium Level 4.1 mmol/L (3.5-5.1) Chloride Level 97 mmol/L (98-107) Carbon Dioxide Level 23 mmol/L (21-32) Anion Gap 13 (6-14) Blood Urea Nitrogen 25 mg/dL (7-20) Creatinine 2.2 mg/dL (0.6-1.0) Estimated GFR (Cockcroft-Gault) 23.8 BUN/Creatinine Ratio 11 (6-20) Glucose Level 255 mg/dL (70-99) Lactic Acid Level 2.1 mmol/L (0.4-2.0) 1.0 mmol/L (0.4-2.0) Calcium Level 9.4 mg/dL (8.5-10.1) Total Bilirubin 0.8 mg/dL (0.2-1.0) Aspartate Amino Transf (AST/SGOT) 53 U/L (15-37) Alanine Aminotransferase (ALT/SGPT) 81 U/L (14-59) Alkaline Phosphatase 110 U/L (46-116) Total Protein 6.9 g/dL (6.4-8.2) Albumin 3.4 g/dL (3.4-5.0) Albumin/Globulin Ratio 1.0 (1.0-1.7) Lipase 141 U/L (73-393) Thyroid Stimulating Hormone (TSH) 1.307 uIU/mL (0.358-3.74) Urine Collection Type Unknown Urine Color Yellow Urine Clarity Clear Urine pH 5.5 (<5.0-8.0) Urine Specific [place] <=1.005 (1.000-1.030) Urine Protein Negative mg/dL (NEG-TRACE) Urine Glucose (UA) 250 mg/dL (NEG) Urine Ketones (Stick) Negative mg/dL (NEG) Urine Blood Negative (NEG) Urine Nitrite Negative (NEG) Urine Bilirubin Negative (NEG) Urine Urobilinogen Dipstick 0.2 mg/dL (0.2 mg/dL) Urine Leukocyte Esterase Negative (NEG) Urine RBC 0 /HPF (0-2) Urine WBC 0 /HPF (0-4) Urine Squamous Epithelial Cells Few /LPF Urine Amorphous Sediment Present /HPF Urine Bacteria 0 /HPF (0-FEW) Bedside Urine HCG, Qualitative Hcg negative (Negative) Laboratory Tests Test 01/26/20 04:12 01/26/20 05:39 01/26/20 05:49 01/26/20 09:31 White Blood Count 11.8 x10^3/uL (4.0-11.0) Red Blood Count 4.70 x10^6/uL (3.50-5.40) Hemoglobin 15.0 g/dL (12.0-15.5) Hematocrit 43.4 % (36.0-47.0) Mean Corpuscular Volume 92 fL (79-100) Mean Corpuscular Hemoglobin 32 pg (25-35) Mean Corpuscular Hemoglobin Concent 35 g/dL (31-37) Red Cell Distribution Width 12.8 % (11.5-14.5) Platelet Count 311 x10^3/uL (140-400) Neutrophils (%) (Auto) 68 % (31-73) Lymphocytes (%) (Auto) 21 % (24-48) Monocytes (%) (Auto) 9 % (0-9) Eosinophils (%) (Auto) 2 % (0-3) Basophils (%) (Auto) 1 % (0-3) Neutrophils # (Auto) 8.0 x10^3/uL (1.8-7.7) Lymphocytes # (Auto) 2.5 x10^3/uL (1.0-4.8) Monocytes # (Auto) 1.0 x10^3/uL (0.0-1.1) Eosinophils # (Auto) 0.2 x10^3/uL (0.0-0.7) Basophils # (Auto) 0.1 x10^3/uL (0.0-0.2) Sodium Level 133 mmol/L (136-145) Potassium Level 4.1 mmol/L (3.5-5.1) Chloride Level 97 mmol/L (98-107) Carbon Dioxide Level 23 mmol/L (21-32) Anion Gap 13 (6-14) Blood Urea Nitrogen 25 mg/dL (7-20) Creatinine 2.2 mg/dL (0.6-1.0) Estimated GFR (Cockcroft-Gault) 23.8 BUN/Creatinine Ratio 11 (6-20) Glucose Level 255 mg/dL (70-99) Lactic Acid Level 2.1 mmol/L (0.4-2.0) 1.0 mmol/L (0.4-2.0) Calcium Level 9.4 mg/dL (8.5-10.1) Total Bilirubin 0.8 mg/dL (0.2-1.0) Aspartate Amino Transf (AST/SGOT) 53 U/L (15-37) Alanine Aminotransferase (ALT/SGPT) 81 U/L (14-59) Alkaline Phosphatase 110 U/L (46-116) Total Protein 6.9 g/dL (6.4-8.2) Albumin 3.4 g/dL (3.4-5.0) Albumin/Globulin Ratio 1.0 (1.0-1.7) Lipase 141 U/L (73-393) Thyroid Stimulating Hormone (TSH) 1.307 uIU/mL (0.358-3.74) Urine Collection Type Unknown Urine Color Yellow Urine Clarity Clear Urine pH 5.5 (<5.0-8.0) Urine Specific [place] <=1.005 (1.000-1.030) Urine Protein Negative mg/dL (NEG-TRACE) Urine Glucose (UA) 250 mg/dL (NEG) Urine Ketones (Stick) Negative mg/dL (NEG) Urine Blood Negative (NEG) Urine Nitrite Negative (NEG) Urine Bilirubin Negative (NEG) Urine Urobilinogen Dipstick 0.2 mg/dL (0.2 mg/dL) Urine Leukocyte Esterase Negative (NEG) Urine RBC 0 /HPF (0-2) Urine WBC 0 /HPF (0-4) Urine Squamous Epithelial Cells Few /LPF Urine Amorphous Sediment Present /HPF Urine Bacteria 0 /HPF (0-FEW) Bedside Urine HCG, Qualitative Hcg negative (Negative) Assessment/Plan Assessment/Plan Recent stroke with possible new stroke Weakness Right hemiparesis Anxiety, Depression, High Cholesterol, Hypertension Tobacco abuse Marijuana use Probable noncompliance Plan Consult neurology PT OT and speech therapy DVT prophylaxis Full code Cardiac monitoring Home meds Trend labs Suspect she will need jail if possible? Tobacco cessation education Justifications for Admission Other Justification BARBIE COVARRUBIAS III DO Jan 26, 2020 11:23
--- NOTE | 2020-01-26 11:57 | PDOC2 ---
NEUROLOGY CONSULT Date of Service DOS: DATE: 01/26/20 TIME: 11:50 Reason for Consult Reason for Consult: Weakness Referring Physician Referring Physician: Dr. Cline Source Source: Chart review, Patient History of Present Illness History of Present Illness The patient is a 49-year-old right-handed female whom I met during her hospital stay a week ago. She had a left hemispheric stroke. Workup was negative. She was sent home on aspirin and statin; she has no insurance, so we couldn't send to inpatient rehab. She says that the night of discharge she developed increasing right-sided weakness but did not seek any medical attention. She has been unable to move the right side since then. She fell off the commode early this morning and was noted to have hypotension. She has a hematoma in her neck from multiple attempts to place an internal jugular catheter. She denies any cognitive change, dysphagia, dysarthria, or numbness. Past Medical History Cardiovascular: HTN, Hyperlipidemia CENTRAL NERVOUS SYSTEM: CVA, Migraine Psych: Anxiety, Depression Past Surgical History Past Surgical History: Tonsillectomy Family History Family History: CVA Social History Social History , on disability due to psychiatric problems, smokes half a pack to a pack of cigarettes per day, occasional marijuana, no alcohol, no other street drugs Current Medications Current Medications Current Medications Ondansetron HCl (Zofran) 4 mg STK-MED ONCE .ROUTE ; Start 01/26/20 at 04:08; Stop 01/26/20 at 04:08; Status DC Norepinephrine Bitartrate 8 mg/ Dextrose 258 ml @ 0 mls/hr 1X ONCE IV ; Start 01/26/20 at 04:30; Stop 01/26/20 at 04:31; Status DC Naloxone HCl (Narcan) 0.4 mg 1X ONCE IV Last administered on 01/26/20at 06:08; Start 01/26/20 at 05:45; Stop 01/26/20 at 05:46; Status DC Vancomycin HCl 2.5 gm/Sodium Chloride 500 ml @ 250 mls/hr 1X ONCE IV ; Start 01/26/20 at 06:15; Stop 01/26/20 at 08:14; Status UNV Cefepime HCl (Maxipime) 1 gm 1X ONCE IVP Last administered on 01/26/20at 06:53; Start 01/26/20 at 06:15; Stop 01/26/20 at 06:16; Status DC Vancomycin HCl 2 gm/Sodium Chloride 500 ml @ 250 mls/hr 1X ONCE IV Last administered on 01/26/20at 06:54; Start 01/26/20 at 06:30; Stop 01/26/20 at 08:29; Status DC Ondansetron HCl (Zofran) 4 mg PRN Q8HRS PRN IV NAUSEA/VOMITING; Start 01/26/20 at 06:30; Stop 01/26/20 at 07:08; Status DC Ondansetron HCl (Zofran) 4 mg PRN Q4HRS PRN IV NAUSEA/VOMITING; Start 01/26/20 at 07:15 Aspirin (Ecotrin) 325 mg DAILYWBKFT PO ; Start 01/26/20 at 08:00 Atorvastatin Calcium (Lipitor) 40 mg HS PO ; Start 01/26/20 at 21:00 Insulin Human Lispro (HumaLOG) 0-7 UNITS TIDWMEALHC SQ ; Start 01/26/20 at 08:00 Dextrose (Dextrose 50%-Water Syringe) 12.5 gm PRN Q15MIN PRN IV SEE COMMENTS; Start 01/26/20 at 07:15 Sodium Chloride 1,000 ml @ 1,000 mls/hr Q1H IV ; Start 01/26/20 at 07:15; Stop 01/26/20 at 11:14 Lisinopril (Prinivil) 40 mg DAILY PO ; Start 01/26/20 at 11:00 Clonazepam (KlonoPIN) 0.5 mg PRN TID PRN PO ANXIETY / AGITATION; Start 01/26/20 at 10:15 Non-Formulary Medication (Lurasidone Hcl (Latuda)) 60 mg DAILY PO ; Start 01/27/20 at 09:00; Status UNV Pantoprazole Sodium (Protonix) 40 mg DAILYAC PO ; Start 01/26/20 at 11:00 Prazosin HCl (Minipress) 5 mg QHS PO ; Start 01/26/20 at 21:00 Trazodone HCl (Desyrel) 150 mg QHS PO ; Start 01/26/20 at 21:00 Non-Formulary Medication (Vilazodone Hydrochloride (Viibryd)) 1 tab DAILY PO ; Start 01/27/20 at 09:00; Status UNV Acetaminophen (Tylenol) 650 mg PRN Q6HRS PRN PO MODERATE PAIN 4-6; Start 01/26/20 at 10:45 Active Scripts Active Aspirin Ec (Aspirin) 325 Mg Tablet. 325 Mg PO DAILYWBKFT Reported Viibryd (Vilazodone Hydrochloride) 40 Mg Tablet 1 Tab PO DAILY Latuda (Lurasidone Hcl) 60 Mg Tablet 60 Mg PO DAILY Clonazepam 1 Mg Tablet 0.5 Mg PO PRN TID PRN Prazosin Hcl 5 Mg Capsule 1 Cap PO QHS Atorvastatin Calcium 40 Mg Tablet 40 Mg PO HS Trazodone Hcl 150 Mg Tablet 150 Mg PO HS Lisinopril 40 Mg Tablet 40 Mg PO DAILY Omeprazole 40 Mg Capsule. 40 Mg PO DAILY Allergies Allergies: Coded Allergies: Penicillins (Verified Allergy, Intermediate, 01/17/20) ceftriaxone (Verified Allergy, Intermediate, 01/17/20) lorazepam (Verified Allergy, Intermediate, 01/17/20) ROS Review of System Negative for fever, chills, weight loss, shortness of breath, chest pain, indigestion, hematochezia, melena, and dysuria. Full 14-point review of systems is negative. Physical Exam Physical Examination General: Well-developed, well-nourished white female in no acute distress HEENT: Normocephalic andatraumatic. Tympanic membranes clear.Temporal arter iespulsatile and nontender.Fundoscopic exam unremarkable Neck: Supple without bruit, no meningismus Musculoskeletal: Stability:see neurologic. Gait exam:see neurologic. Tone:see neurologic.Strength:see neurologic. Neurological: Mental Status:intact, orientation, memory, attention span/concentration, language, fund of knowledge normal. Cranial Nerves:Pupils equal and reactive to light, extraocular movements areintact, visual tellez are full to confrontation. Facial sensation is normal. There is no facial asymmetry. Vestibulo-ocular reflex is intact. Palate elevates and tongue protrudes in midline. All other cranial related problems are negative except as mentioned before.Reflexes:2+ and symmetric with flexor plantar responses. Motor:2/5 right hemiparesis, with normal tone and bulk. Coordination:Finger-nose finger and [id number] testing are normal on the left. Rapid alternating movements and fine finger movements are intact on the left. Gait:Not tested. Sensory:Normal pinprick, vibration, light touch, proprioception. Vitals VITALS Vital Signs Date Time Temp Pulse Resp B/P (MAP) Pulse Ox O2 Delivery O2 Flow Rate FiO2 01/26/20 08:30 97.8 87 20 147/75 (99) 96 Nasal Cannula 2.0 97.8 Labs Labs Laboratory Tests Test 01/26/20 04:12 01/26/20 05:39 01/26/20 05:49 01/26/20 09:31 White Blood Count 11.8 x10^3/uL (4.0-11.0) Red Blood Count 4.70 x10^6/uL (3.50-5.40) Hemoglobin 15.0 g/dL (12.0-15.5) Hematocrit 43.4 % (36.0-47.0) Mean Corpuscular Volume 92 fL (79-100) Mean Corpuscular Hemoglobin 32 pg (25-35) Mean Corpuscular Hemoglobin Concent 35 g/dL (31-37) Red Cell Distribution Width 12.8 % (11.5-14.5) Platelet Count 311 x10^3/uL (140-400) Neutrophils (%) (Auto) 68 % (31-73) Lymphocytes (%) (Auto) 21 % (24-48) Monocytes (%) (Auto) 9 % (0-9) Eosinophils (%) (Auto) 2 % (0-3) Basophils (%) (Auto) 1 % (0-3) Neutrophils # (Auto) 8.0 x10^3/uL (1.8-7.7) Lymphocytes # (Auto) 2.5 x10^3/uL (1.0-4.8) Monocytes # (Auto) 1.0 x10^3/uL (0.0-1.1) Eosinophils # (Auto) 0.2 x10^3/uL (0.0-0.7) Basophils # (Auto) 0.1 x10^3/uL (0.0-0.2) Sodium Level 133 mmol/L (136-145) Potassium Level 4.1 mmol/L (3.5-5.1) Chloride Level 97 mmol/L (98-107) Carbon Dioxide Level 23 mmol/L (21-32) Anion Gap 13 (6-14) Blood Urea Nitrogen 25 mg/dL (7-20) Creatinine 2.2 mg/dL (0.6-1.0) Estimated GFR (Cockcroft-Gault) 23.8 BUN/Creatinine Ratio 11 (6-20) Glucose Level 255 mg/dL (70-99) Lactic Acid Level 2.1 mmol/L (0.4-2.0) 1.0 mmol/L (0.4-2.0) Calcium Level 9.4 mg/dL (8.5-10.1) Total Bilirubin 0.8 mg/dL (0.2-1.0) Aspartate Amino Transf (AST/SGOT) 53 U/L (15-37) Alanine Aminotransferase (ALT/SGPT) 81 U/L (14-59) Alkaline Phosphatase 110 U/L (46-116) Total Protein 6.9 g/dL (6.4-8.2) Albumin 3.4 g/dL (3.4-5.0) Albumin/Globulin Ratio 1.0 (1.0-1.7) Lipase 141 U/L (73-393) Thyroid Stimulating Hormone (TSH) 1.307 uIU/mL (0.358-3.74) Urine Collection Type Unknown Urine Color Yellow Urine Clarity Clear Urine pH 5.5 (<5.0-8.0) Urine Specific [place] <=1.005 (1.000-1.030) Urine Protein Negative mg/dL (NEG-TRACE) Urine Glucose (UA) 250 mg/dL (NEG) Urine Ketones (Stick) Negative mg/dL (NEG) Urine Blood Negative (NEG) Urine Nitrite Negative (NEG) Urine Bilirubin Negative (NEG) Urine Urobilinogen Dipstick 0.2 mg/dL (0.2 mg/dL) Urine Leukocyte Esterase Negative (NEG) Urine RBC 0 /HPF (0-2) Urine WBC 0 /HPF (0-4) Urine Squamous Epithelial Cells Few /LPF Urine Amorphous Sediment Present /HPF Urine Bacteria 0 /HPF (0-FEW) Bedside Urine HCG, Qualitative Hcg negative (Negative) Test 01/26/20 11:22 Glucose (Fingerstick) 186 mg/dL (70-99) Laboratory Tests Test 01/26/20 04:12 01/26/20 05:39 01/26/20 05:49 01/26/20 09:31 White Blood Count 11.8 x10^3/uL (4.0-11.0) Red Blood Count 4.70 x10^6/uL (3.50-5.40) Hemoglobin 15.0 g/dL (12.0-15.5) Hematocrit 43.4 % (36.0-47.0) Mean Corpuscular Volume 92 fL (79-100) Mean Corpuscular Hemoglobin 32 pg (25-35) Mean Corpuscular Hemoglobin Concent 35 g/dL (31-37) Red Cell Distribution Width 12.8 % (11.5-14.5) Platelet Count 311 x10^3/uL (140-400) Neutrophils (%) (Auto) 68 % (31-73) Lymphocytes (%) (Auto) 21 % (24-48) Monocytes (%) (Auto) 9 % (0-9) Eosinophils (%) (Auto) 2 % (0-3) Basophils (%) (Auto) 1 % (0-3) Neutrophils # (Auto) 8.0 x10^3/uL (1.8-7.7) Lymphocytes # (Auto) 2.5 x10^3/uL (1.0-4.8) Monocytes # (Auto) 1.0 x10^3/uL (0.0-1.1) Eosinophils # (Auto) 0.2 x10^3/uL (0.0-0.7) Basophils # (Auto) 0.1 x10^3/uL (0.0-0.2) Sodium Level 133 mmol/L (136-145) Potassium Level 4.1 mmol/L (3.5-5.1) Chloride Level 97 mmol/L (98-107) Carbon Dioxide Level 23 mmol/L (21-32) Anion Gap 13 (6-14) Blood Urea Nitrogen 25 mg/dL (7-20) Creatinine 2.2 mg/dL (0.6-1.0) Estimated GFR (Cockcroft-Gault) 23.8 BUN/Creatinine Ratio 11 (6-20) Glucose Level 255 mg/dL (70-99) Lactic Acid Level 2.1 mmol/L (0.4-2.0) 1.0 mmol/L (0.4-2.0) Calcium Level 9.4 mg/dL (8.5-10.1) Total Bilirubin 0.8 mg/dL (0.2-1.0) Aspartate Amino Transf (AST/SGOT) 53 U/L (15-37) Alanine Aminotransferase (ALT/SGPT) 81 U/L (14-59) Alkaline Phosphatase 110 U/L (46-116) Total Protein 6.9 g/dL (6.4-8.2) Albumin 3.4 g/dL (3.4-5.0) Albumin/Globulin Ratio 1.0 (1.0-1.7) Lipase 141 U/L (73-393) Thyroid Stimulating Hormone (TSH) 1.307 uIU/mL (0.358-3.74) Urine Collection Type Unknown Urine Color Yellow Urine Clarity Clear Urine pH 5.5 (<5.0-8.0) Urine Specific [place] <=1.005 (1.000-1.030) Urine Protein Negative mg/dL (NEG-TRACE) Urine Glucose (UA) 250 mg/dL (NEG) Urine Ketones (Stick) Negative mg/dL (NEG) Urine Blood Negative (NEG) Urine Nitrite Negative (NEG) Urine Bilirubin Negative (NEG) Urine Urobilinogen Dipstick 0.2 mg/dL (0.2 mg/dL) Urine Leukocyte Esterase Negative (NEG) Urine RBC 0 /HPF (0-2) Urine WBC 0 /HPF (0-4) Urine Squamous Epithelial Cells Few /LPF Urine Amorphous Sediment Present /HPF Urine Bacteria 0 /HPF (0-FEW) Bedside Urine HCG, Qualitative Hcg negative (Negative) Test 01/26/20 11:22 Glucose (Fingerstick) 186 mg/dL (70-99) Images Images CT HEAD AND CERVICAL SPINE WO Head: Low-density within the left cerebral hemisphere at the previously identified site of ischemia could be secondary to evolution of the patient's known stroke with associated edema. No acute intracranial hemorrhage. No hydrocephalus. Suprasellar cistern is not effaced. Cervical spine: Degenerative changes of the cervical spine with osteophyte formation at the vertebral body endplates as well as uncovertebral and facet hypertrophy. No evidence of acute fracture or dislocation. Partial visualization of vascular catheter at the right side of the neck. Partial visualization of high density material at the left side of the neck IMPRESSION: * No acute intracranial hemorrhage. * Low-density within the left cerebral hemisphere at the site of previously identified stroke. This could be secondary to edema related to the patient's recent stroke. * Degenerative changes of the cervical spine. * High density material seen within the soft tissues the left side of the neck which can be seen with soft tissue contusion as well as blood within the soft tissues. Assessment/Plan Assessment/Plan Impression: Hypertension, fall Left hemispheric stroke last week, negative workup, she got worse after discharge. It remains curious that she has no facial droop with this. History of migraines, hypertension, hyperlipidemia, psychiatric issues to the point of disability. Recommendations: No need to repeat stroke workup Aspirin, statin Rehabilitation modalities Thank you for letting me help with the patient's care. LINDSAY MICHEL MD Jan 26, 2020 11:57
--- NOTE | 2020-01-26 12:22 | NUR ---
SS following for discharge planning. SS reviewed pt chart and discussed with pt RN. Pt is from home with spouse and is currently on room air. Pt self pay. [employer] submitted Medicaid application for pt on last admission. Pt has disability. Referral for [facility] was sent to [facility], ; fax [phone], on last admission. SS following up with [facility] to discuss. SS will continue to follow for discharge planning.
[2020-01-26] MEDS ORDERED: FLUCONAZOLE 100 MG TABLET. PO ONE (14:15)
[2020-01-26] MEDS: clonazePAM 0.5 MG TABLET PO PRN ×2 (14:16→22:02)
[2020-01-26 15:00] VITALS: BP 145/85
[2020-01-26 18:20] VITALS: BP 153/92
[2020-01-26] MEDS ORDERED: PRAZOSIN 1 MG CAPSULE. PO SCH (21:00)
[2020-01-26] MEDS: ATORVASTATIN CALCIUM 40 MG TABLET. PO SCH (22:02)
[2020-01-26] MEDS: traZODone 50 MG TABLET. PO SCH (22:03)
[2020-01-26 23:16] VITALS: BP 137/84
[2020-01-27 01:08] LABS: HEMOGLOBIN A1C 7.2 % (4.8-5.6)
[2020-01-27 03:00] VITALS: BP 135/85
[2020-01-27 06:34] LABS: BASO # 0.1 x10^3/uL (0.0-0.2); BASO % 1 % (0-3); EOS # 0.3 x10^3/uL (0.0-0.7); EOS % 3 % (0-3); HEMATOCRIT 40.7 % (36.0-47.0); LYMPH # 3.4 x10^3/uL (1.0-4.8); LYMPH % 33 % (24-48); MEAN CORPUSCULAR HEMOGLOBIN 32 pg (25-35); MEAN CORPUSCULAR HGB CONC 34 g/dL (31-37); MEAN CORPUSCULAR VOLUME 92 fL (79-100); MONO # 0.8 x10^3/uL (0.0-1.1); MONO % 8 % (0-9); NEUT # 5.8 x10^3/uL (1.8-7.7); NEUT % 56 % (31-73); PLATELET COUNT 271 x10^3/uL (140-400); RED BLOOD COUNT 4.41 x10^6/uL (3.50-5.40); RED CELL DISTRIBUTION WIDTH 12.7 % (11.5-14.5); WHITE BLOOD COUNT 10.4 x10^3/uL (4.0-11.0)
[2020-01-27 06:42] LABS: CALCIUM 8.5 mg/dL (8.5-10.1); CREATININE 1.3 mg/dL (0.6-1.0); GFR 43.7; POTASSIUM 4.7 mmol/L (3.5-5.1)
[2020-01-27 07:00] VITALS: BP 153/87
[2020-01-27] MEDS: INSULIN LISPRO 300 UNITS/3 ML VIAL. SQ SCH ×4 (08:00→21:31)
[2020-01-27] MEDS: ASPIRIN ENTERIC COATED 325 MG TABLET.DR. PO SCH (08:30)
[2020-01-27] MEDS: clonazePAM 0.5 MG TABLET PO PRN ×3 (08:31→21:25)
[2020-01-27] MEDS: PANTOPRAZOLE 40 MG TABLET.DR. PO SCH (08:31)
[2020-01-27] MEDS: LISINOPRIL 20 MG TABLET PO SCH (08:34)
[2020-01-27] MEDS: PRAZOSIN 1 MG CAPSULE. PO SCH (08:35)
[2020-01-27] MEDS: NON FORMULARY ITEM (Vilazodone Hydrochloride (Viibryd) 1 TAB) PO SCH (09:00)
[2020-01-27] MEDS: NON FORMULARY ITEM (Lurasidone Hcl (Latuda) 60 MG) PO SCH (09:00)
--- NOTE | 2020-01-27 10:18 | PDOC ---
[facility] PROGRESS NOTE Date of Service DOS: DATE: 01/27/20 TIME: 10:12 Chief Complaint Chief Complaint Patient presents with hypotension and fall. History of Present Illness History of Present Illness 01/27/20 Patient seen and examined Patient was sitting upright Patient in NAD Discussed with RN Chart reviewed Vitals/I&O Vitals/I&O: Vital Signs Date Time Temp Pulse Resp B/P (MAP) Pulse Ox O2 Delivery O2 Flow Rate FiO2 01/27/20 08:35 70 153/87 01/27/20 08:00 Room Air 01/27/20 07:00 98.1 20 91 98.1 01/26/20 08:30 2.0 I & O 01/26/20 01/26/20 01/27/20 15:00 23:00 07:00 Intake Total 1200 ml 50 ml 0 ml Output Total 1700 ml 1250 ml 2650 ml Balance -500 ml -1200 ml -2650 ml Physical Exam General: Alert, No acute distress Heart: Regular rate Lungs: Clear Abdomen: Normal bowel sounds Extremities: No clubbing Skin: No rashes Labs Labs: Laboratory Tests Test 01/26/20 11:22 01/26/20 16:43 01/26/20 22:09 01/27/20 06:15 Glucose (Fingerstick) 186 mg/dL (70-99) 139 mg/dL (70-99) 144 mg/dL (70-99) White Blood Count 10.4 x10^3/uL (4.0-11.0) Red Blood Count 4.41 x10^6/uL (3.50-5.40) Hemoglobin 14.0 g/dL (12.0-15.5) Hematocrit 40.7 % (36.0-47.0) Mean Corpuscular Volume 92 fL (79-100) Mean Corpuscular Hemoglobin 32 pg (25-35) Mean Corpuscular Hemoglobin Concent 34 g/dL (31-37) Red Cell Distribution Width 12.7 % (11.5-14.5) Platelet Count 271 x10^3/uL (140-400) Neutrophils (%) (Auto) 56 % (31-73) Lymphocytes (%) (Auto) 33 % (24-48) Monocytes (%) (Auto) 8 % (0-9) Eosinophils (%) (Auto) 3 % (0-3) Basophils (%) (Auto) 1 % (0-3) Neutrophils # (Auto) 5.8 x10^3/uL (1.8-7.7) Lymphocytes # (Auto) 3.4 x10^3/uL (1.0-4.8) Monocytes # (Auto) 0.8 x10^3/uL (0.0-1.1) Eosinophils # (Auto) 0.3 x10^3/uL (0.0-0.7) Basophils # (Auto) 0.1 x10^3/uL (0.0-0.2) Sodium Level 135 mmol/L (136-145) Potassium Level 4.7 mmol/L (3.5-5.1) Chloride Level 103 mmol/L (98-107) Carbon Dioxide Level 27 mmol/L (21-32) Anion Gap 5 (6-14) Blood Urea Nitrogen 17 mg/dL (7-20) Creatinine 1.3 mg/dL (0.6-1.0) Estimated GFR (Cockcroft-Gault) 43.7 Glucose Level 145 mg/dL (70-99) Calcium Level 8.5 mg/dL (8.5-10.1) Test 01/27/20 07:42 Glucose (Fingerstick) 161 mg/dL (70-99) Review of Systems Review of Systems: Patient denies pain. Patient endorses itchiness. Patient endorses weakness of right UE and LE. Assessment and Plan Assessmemt and Plan Problems Medical Problems: (1) SHEILA (acute kidney injury) Status: Acute (2) Fall Status: Acute (3) Hypotension Status: Acute Assessment Recent stroke with possible new stroke Weakness Right hemiparesis Anxiety, Depression, High Cholesterol, Hypertension Tobacco abuse Marijuana use Probable noncompliance Plan Benadryl PO for itching Home meds DVT prophylaxis PT OT Full code Hope to discharge soon Comment Review of Relevant I have reviewed the following items augusto (where applicable) has been applied. Medications: Current Medications Medications (Trade) Dose Ordered Sig/Diony Route PRN Reason Start Time Stop Time Status Last Admin Dose Admin Atorvastatin Calcium (Lipitor) 40 mg HS PO 01/26/20 21:00 01/26/20 22:02 Lisinopril (Prinivil) 40 mg DAILY PO 01/26/20 11:00 01/27/20 08:34 Clonazepam (KlonoPIN) 0.5 mg PRN TID PRN PO ANXIETY / AGITATION 01/26/20 10:15 01/27/20 08:31 Pantoprazole Sodium (Protonix) 40 mg DAILYAC PO 01/26/20 11:00 01/27/20 08:31 Trazodone HCl (Desyrel) 150 mg QHS PO 01/26/20 21:00 01/26/20 22:03 Acetaminophen (Tylenol) 650 mg PRN Q6HRS PRN PO MODERATE PAIN 4-6 01/26/20 10:45 01/26/20 10:59 Fluconazole (Diflucan) 150 mg 1X ONCE PO 01/26/20 14:15 01/26/20 14:16 DC 01/26/20 14:16 Prazosin HCl (Minipress) 5 mg DAILY PO 01/27/20 09:00 01/27/20 08:35 Justifications for Admission Other Justification BARBIE COVARRUBIAS III DO Jan 27, 2020 10:18
[2020-01-27 11:00] VITALS: BP 115/54
[2020-01-27] MEDS: diphenhydrAMINE HCL 25 MG CAPSULE PO PRN ×2 (13:11→21:25)
[2020-01-27 15:00] VITALS: BP 107/46
[2020-01-27] MEDS: ACETAMINOPHEN 325 MG TABLET. PO PRN (19:08)
[2020-01-27 19:44] VITALS: BP 113/68
[2020-01-27] MEDS: ATORVASTATIN CALCIUM 40 MG TABLET. PO SCH (21:25)
[2020-01-27] MEDS: traZODone 50 MG TABLET. PO SCH (21:25)
[2020-01-27 22:04] VITALS: BP 136/80
[2020-01-28 03:00] VITALS: BP 151/78
[2020-01-28 07:00] VITALS: BP 133/86
[2020-01-28] MEDS: clonazePAM 0.5 MG TABLET PO PRN ×3 (08:47→21:30)
[2020-01-28] MEDS: ASPIRIN ENTERIC COATED 325 MG TABLET.DR. PO SCH (08:48)
[2020-01-28] MEDS: PRAZOSIN 1 MG CAPSULE. PO SCH (08:48)
[2020-01-28] MEDS: PANTOPRAZOLE 40 MG TABLET.DR. PO SCH (08:49)
[2020-01-28] MEDS: LISINOPRIL 20 MG TABLET PO SCH (08:49)
[2020-01-28] MEDS: INSULIN LISPRO 300 UNITS/3 ML VIAL. SQ SCH ×4 (08:52→20:45)
[2020-01-28] MEDS: NON FORMULARY ITEM (Lurasidone Hcl (Latuda) 60 MG) PO SCH (08:54)
[2020-01-28] MEDS: NON FORMULARY ITEM (Vilazodone Hydrochloride (Viibryd) 1 TAB) PO SCH (08:55)
--- NOTE | 2020-01-28 09:30 | PDOC ---
[employer] [facility] PROGRESS NOTE Date of Service DOS: DATE: 01/28/20 TIME: 09:25 Chief Complaint Chief Complaint Patient presents with hypotension and fall. History of Present Illness History of Present Illness 01/28/2020 Patient seen and examined Patient was sitting with NAD, eating breakfast Discussed with RN Reviewed chart Discharge pending - should probably go to rehab From previous stroke, patient still has right-sided weakness 01/27/20 Patient seen and examined Patient was sitting upright Patient in NAD Discussed with RN Chart reviewed Vitals/I&O Vitals/I&O: Vital Signs Date Time Temp Pulse Resp B/P (MAP) Pulse Ox O2 Delivery O2 Flow Rate FiO2 01/28/20 08:49 77 133/86 01/28/20 07:00 98.1 18 94 Room Air 98.1 I & O 01/27/20 01/27/20 01/28/20 15:00 23:00 07:00 Intake Total 1050 ml 550 ml 100 ml Output Total 1150 ml 1100 ml Balance 1050 ml -600 ml -1000 ml Physical Exam General: Alert, No acute distress Heart: Regular rate Lungs: Clear Abdomen: Normal bowel sounds Extremities: No clubbing Skin: No rashes Labs Labs: Laboratory Tests Test 01/27/20 12:17 01/27/20 17:03 01/27/20 20:53 01/28/20 07:03 Glucose (Fingerstick) 236 mg/dL (70-99) 161 mg/dL (70-99) 251 mg/dL (70-99) 171 mg/dL (70-99) Review of Systems Review of Systems: Denies pain C/o weakness Assessment and Plan Assessmemt and Plan Problems Medical Problems: (1) SHEILA (acute kidney injury) Status: Acute (2) Fall Status: Acute (3) Hypotension Status: Acute Assessment Recent stroke with possible new stroke Weakness Right hemiparesis Anxiety, Depression, High Cholesterol, Hypertension Tobacco abuse Marijuana use Probable noncompliance Plan Benadryl PO for itching Daily Aspirin Cardiac monitoring Home meds DVT prophylaxis PT/OT Full code Hope to discharge soon to rehab Comment Review of Relevant I have reviewed the following items augusto (where applicable) has been applied. Medications: Current Medications Medications (Trade) Dose Ordered Sig/Diony Route PRN Reason Start Time Stop Time Status Last Admin Dose Admin Diphenhydramine HCl (Benadryl) 25 mg PRN Q8HRS PRN PO ITCHING 01/27/20 10:30 01/27/20 21:25 Justifications for Admission Other Justification BARBIE COVARRUBIAS III DO Jan 28, 2020 09:30
[2020-01-28 11:00] VITALS: BP 138/85
[2020-01-28] MEDS: diphenhydrAMINE HCL 25 MG CAPSULE PO PRN ×2 (14:58→21:30)
[2020-01-28 15:00] VITALS: BP 117/67
--- NOTE | 2020-01-28 17:36 | NUR ---
Patient did not want AM Minipress. Pt says she takes it at bedtime for nightmares. Called pharmacy and they will change to hs.
--- NOTE | 2020-01-28 18:36 | NUR ---
Pt central line removed using sterile technique. Pressure applied. No bleeding at site. Gauze and tegaderm applied. Pt tolerated procedure.
[2020-01-28 19:00] VITALS: BP 123/76
[2020-01-28] MEDS: traZODone 50 MG TABLET. PO SCH (20:40)
[2020-01-28] MEDS: ATORVASTATIN CALCIUM 40 MG TABLET. PO SCH (20:40)
[2020-01-28] MEDS ORDERED: PRAZOSIN 1 MG CAPSULE. PO SCH (21:00)
[2020-01-28 22:54] VITALS: BP 96/54
[2020-01-29 02:35] VITALS: BP 100/52
[2020-01-29] MEDS ORDERED: NALOXONE 0.4 MG/ML VIAL. ONE (06:00)
[2020-01-29] MEDS ORDERED: EPINEPHrine SYRINGE 1 MG/10 ML SYRINGE ONE (06:00)
[2020-01-29 07:00] VITALS: BP 141/86
[2020-01-29] MEDS: INSULIN LISPRO 300 UNITS/3 ML VIAL. SQ SCH ×2 (08:00→13:08)
[2020-01-29] MEDS: ASPIRIN ENTERIC COATED 325 MG TABLET.DR. PO SCH (08:52)
[2020-01-29] MEDS: PANTOPRAZOLE 40 MG TABLET.DR. PO SCH (08:52)
[2020-01-29] MEDS: clonazePAM 0.5 MG TABLET PO PRN (08:53)
[2020-01-29] MEDS: NON FORMULARY ITEM (Lurasidone Hcl (Latuda) 60 MG) PO SCH (09:00)
[2020-01-29] MEDS: NON FORMULARY ITEM (Vilazodone Hydrochloride (Viibryd) 1 TAB) PO SCH (09:00)
[2020-01-29 11:00] VITALS: BP 134/71
[2020-01-29] MEDS ORDERED: IV NORMAL SALINE 1000ML BAG 1,000 ML IV SCH (11:30)
[2020-01-29] MEDS: diphenhydrAMINE HCL 25 MG CAPSULE PO PRN (11:42)
[2020-01-29 13:02] VITALS: BP 134/71
[2020-01-29] MEDS: LISINOPRIL 20 MG TABLET PO SCH (13:02)
--- NOTE | 2020-01-29 13:08 | SNU/HH DC ---
DISCHARGE WITH HOME HEALTH DISCHARGE INFORMATION: Discharge Date: Jan 29, 2020 Final Diagnosis: Problems Medical Problems: (1) CVA Status: Acute (2) Fall Status: Acute (3) Hypotension Status: Acute Condition on Discharge: Stable CODE STATUS: Code Status: Full HOME HEALTH: Face to Face: I certify this patient is under my care and that I, or a nurse practitioner or physician's construction project assistant working with me, had a face to face encounter that meets the physician face to face encounter requirements with this patient on []. Medical Complications: CVA RN For Eval/Treatment: Yes Physical Therapy For: Evalulation/Treatment Occupational Therapy For: Evaluation/Treatment Pt Meets Homebound Status: Unsteady balance w/ amb,, Extreme weakness w/ amb., Limited distance walking POST DISCHARGE ORDERS: Activity Instructions for Disc: Activity as tolerated, Other, see below DIET AFTER DISCHARGE: Cardiac CHECKS AFTER DISCHARGE: Checks after discharge: Check blood press - daily CERTIFICATION STATEMENT: Certification Statement: Certification Statement: Based on the above finding, I certify that this patient is confined to the home and needs intermittent senior care care, physical therapy and/or speech therapy, or continues to need occupational therapy.~ This patient is under my care, and I have initiated the establishment of the plan of care.~ This patient will be followed by myself or a community physician who will periodically review the plan of care. Home Meds Active Scripts Aspirin (ASPIRIN EC) 325 Mg Tablet., 325 MG PO DAILYWBKFT for CVA, #30 TAB.SR 2 Refills Prov:CALEB REYNOSO MD 01/19/20 Reported Medications Vilazodone Hydrochloride (VIIBRYD) 40 Mg Tablet, 1 TAB PO DAILY for Depression, #30 TAB 1 Refill 01/18/20 Lurasidone Hcl (LATUDA) 60 Mg Tablet, 60 MG PO DAILY for Depression, TAB 01/18/20 Clonazepam (CLONAZEPAM) 1 Mg Tablet, 0.5 MG PO PRN TID PRN for ANXIETY / AGITATION, TAB 01/18/20 Prazosin Hcl (PRAZOSIN HCL) 5 Mg Capsule, 1 CAP PO QHS for HTN, #30 CAP 1 Refill 01/18/20 Atorvastatin Calcium (ATORVASTATIN CALCIUM) 40 Mg Tablet, 40 MG PO HS for FOR CHOLESTEROL, #30 TAB 0 Refills 01/18/20 Trazodone Hcl (TRAZODONE HCL) 150 Mg Tablet, 150 MG PO HS for insomnia, TAB 01/18/20 Lisinopril (LISINOPRIL) 40 Mg Tablet, 40 MG PO DAILY for FOR HYPERTENSION, #30 TAB 0 Refills 01/18/20 Omeprazole (OMEPRAZOLE) 40 Mg Capsule.dr, 40 MG PO DAILY for gerd, CAP 01/18/20 AGNES PEARSON MD Jan 29, 2020 13:08
[2020-01-29] MEDS ORDERED: METF500T16 PO (13:14)
--- NOTE | 2020-01-29 13:14 | PDOC3 ---
Discharge Summary Visit Information Date of Admission: Jan 26, 2020 Date of Discharge: Jan 29, 2020 Admitting Diagnosis Comment: Recent stroke with possible new stroke Weakness Right hemiparesis Anxiety, Depression, High Cholesterol, Hypertension Tobacco abuse Marijuana use Probable noncompliance Final Diagnosis Problems Medical Problems: Recent stroke , left hemispheric Weakness Right hemiparesis Anxiety, Depression, High Cholesterol, Hypertension history of migraines Tobacco abuse Marijuana use Probable noncompliance New diagnosis of DM type 2 Brief Hospital Course Allergies Allergies Coded Allergies Type Severity Reaction Last Updated Verified Penicillins Allergy Intermediate 01/17/20 Yes ceftriaxone Allergy Intermediate 01/17/20 Yes lorazepam Allergy Intermediate 01/17/20 Yes Vital Signs Vital Signs Date Time Temp Pulse Resp B/P (MAP) Pulse Ox O2 Delivery O2 Flow Rate FiO2 01/29/20 11:00 98.2 83 18 134/71 (92) 94 Room Air 98.2 Lab Results Laboratory Tests Test 01/27/20 17:03 01/27/20 20:53 01/28/20 07:03 01/28/20 11:47 Glucose (Fingerstick) 161 mg/dL (70-99) 251 mg/dL (70-99) 171 mg/dL (70-99) 105 mg/dL (70-99) Test 01/28/20 16:56 01/28/20 20:45 01/29/20 08:11 01/29/20 11:47 Glucose (Fingerstick) 125 mg/dL (70-99) 158 mg/dL (70-99) 171 mg/dL (70-99) 160 mg/dL (70-99) Laboratory Tests Test 01/28/20 16:56 01/28/20 20:45 01/29/20 08:11 01/29/20 11:47 Glucose (Fingerstick) 125 mg/dL (70-99) 158 mg/dL (70-99) 171 mg/dL (70-99) 160 mg/dL (70-99) Brief Hospital Course Ms. Encinas is a 49 old right-handed female whom I met during her hospital stay a week ago. She had a left hemispheric stroke. Workup was negative. She was sent home on aspirin and statin; she has no insurance, so [facility]. She says that the night of discharge she developed increasing right- sided weakness but did not seek any medical attention. She has been unable to move the right side since then. She fell off the commode early the morning of admission and was noted to have hypotension. She has a hematoma in her neck from multiple attempts to place an internal jugular catheter. She denies any cognitive change, dysphagia, dysarthria, or numbness. She was evaluated by neurology during her inpatient stay, she was deemed appropriate for discharge from their standpoint of view and no need for repeat work-up in the sense of new neurological deficits. She continues to have right- sided hemiparesis seems to be getting better with therapies and during her last admission home health was arranged for the patient through [facility] nevertheless her symptoms recurred before she could establish care with them. She has a primary care physician that she visits every so often and hopefully will be under her 's health plan starting next month. He will be able to have better follow-up, signs and symptoms of alarm and when to seek medical attention were discussed with the patient prior to discharge she acknowledged understanding of all the instructions and is in good spirits to be going home. Lungs clear to auscultation bilaterally Cardiovascular S1-S2 regular rhythm no murmurs gallops or rubs Mental Status:intact, orientation, memory, attention span/concentration, language, fund of knowledge normal. Cranial Nerves:Pupils equal and reactive to light, extraocular movements areintact, visual tellez are full to confrontation. Facial sensation is normal. There is no facial asymmetry. Vestibulo-ocular reflex is intact. Palate elevates and tongue protrudes in midline. All other cranial related problems are negative except as mentioned before.Reflexes:2+ and symmetric with flexor plantar responses. Motor:2/5 right hemiparesis, with normal tone and bulk. Coordination:Finger-nose finger and hamm-sb-[id number] testing are normal on the left. Rapid alternating movements and fine finger movements are intact on the left. Gait:Not tested. Sensory:Normal pinprick, vibration, light touch, proprioception. Assessment Assessment IMAGING REPORT Signed PATIENT: TARIQ ENCINAS DACCOUNT: [id number] : 1970 LOCATION: ER AGE: 49 SEX: F EXAM STATUS: REG ER ORD. PHYSICIAN: RAUL SÁNCHEZ DO REASON: fall from commode PROCEDURE: CT HEAD AND CERVICAL SPINE WO INDICATION: Reason: fall from commode / Spl. Instructions: / History: COMPARISON: January 18, 2020 TECHNIQUE: Axial CT images obtained through the head and cervical spine. One or more of the following individualized dose reduction techniques were utilized for this examination: 1. Automated exposure control; 2. Adjustment of the mA and/or kV according to patient size; 3. Use of iterative reconstruction technique. FINDINGS: Head: Low-density within the left cerebral hemisphere at the previously identified site of ischemia could be secondary to evolution of the patient's known stroke with associated edema. No acute intracranial hemorrhage. No hydrocephalus. Suprasellar cistern is not effaced. Cervical spine: Degenerative changes of the cervical spine with osteophyte formation at the vertebral body endplates as well as uncovertebral and facet hypertrophy. No evidence of acute fracture or dislocation. Partial visualization of vascular catheter at the right side of the neck. Partial visualization of high density material at the left side of the neck IMPRESSION: * No acute intracranial hemorrhage. * Low-density within the left cerebral hemisphere at the site of previously identified stroke. This could be secondary to edema related to the patient's recent stroke. * Degenerative changes of the cervical spine. * High density material seen within the soft tissues the left side of the neck which can be seen with soft tissue contusion as well as blood within the soft tissues. Electronically signed by: Gilberto Zavala MD (01/26/2020 6:31 AM) [id number] Discharge Information Condition at Discharge: Improved Follow Up: Weeks Disposition/Orders: D/C to Home Scheduled Aspirin (Aspirin Ec) 325 Mg Tablet.dr, 325 MG PO DAILYWBKFT for CVA, #30 Ref 2 Prescribed by: CALEB REYNOSO MD on 01/19/20 1254 Last Action: Reviewed on 01/26/20954 by Laura Aguero Atorvastatin Calcium (Atorvastatin Calcium) 40 Mg Tablet, 40 MG PO HS for FOR CHOLESTEROL, #30 Ref 0 (Reported) Entered as Reported by: Cedric Davidson on 01/18/20 0302 Last Action: Reviewed on 01/26/20954 by Laura Aguero Lisinopril (Lisinopril) 40 Mg Tablet, 40 MG PO DAILY for FOR HYPERTENSION, #30 Ref 0 (Reported) Entered as Reported by: Cedric Davidson on 01/18/20301 Last Action: Continued on 01/26/201003 by Laura Aguero Lurasidone Hcl (Latuda) 60 Mg Tablet, 60 MG PO DAILY for Depression, (Reported) Entered as Reported by: CARROL TAYLOR on 01/18/20855 Last Action: Converted on 01/26/201003 by Laura Agureo Omeprazole (Omeprazole) 40 Mg Capsule.dr, 40 MG PO DAILY for gerd, (Reported) Entered as Reported by: Cedric Davidson on 01/18/20301 Last Action: Converted on 01/26/201003 by Laura Aguero Prazosin Hcl (Prazosin Hcl) 5 Mg Capsule, 1 CAP PO QHS for HTN, #30 Ref 1 (Reported) Entered as Reported by: CARROL TAYLOR on 01/18/20855 Last Action: Converted on 01/26/201003 by Laura Aguero Trazodone Hcl (Trazodone Hcl) 150 Mg Tablet, 150 MG PO HS for insomnia, (Reported) Entered as Reported by: Cedric Davidson on 01/18/20301 Last Action: Converted on 01/26/201003 by Laura Aguero Vilazodone Hydrochloride (Viibryd) 40 Mg Tablet, 1 TAB PO DAILY for Depression, #30 Ref 1 (Reported) Entered as Reported by: CARROL TAYLOR on 01/18/20855 Last Action: Converted on 01/26/201003 by Laura Aguero Scheduled PRN Clonazepam (Clonazepam) 1 Mg Tablet, 0.5 MG PO PRN TID PRN for ANXIETY / AGITATION, (Reported) Entered as Reported by: CARROL TAYLOR on 01/18/20855 Last Action: Converted on 01/26/201003 by Laura Aguero Justicifation of Admission Dx: Justifications for Admission: Justification of Admission Dx: Yes Acute Renal Failure: 3-Fold Rise in Serum Radhaa AGNES PEARSON MD Jan 29, 2020 13:14
--- NOTE | 2020-01-29 14:26 | NUR ---
Discharge Note: TARIQ FINNEY [address] Discharge instructions and discharge home medications reviewed with Patient and a copy given. All questions have been answered and understanding verbalized. The following instructions and handouts were given: patient visit report, medication information, education Discontinued lines and drains: peripheral IV, tip intact. Patient discharged to home with home health via private vehicle. Patient left unit awake, in stable condition. Phone senior ios developer left behind, patient will be called to pickle processor.
== END 2020-01-29 14:20 | disposition home health service (06) | DRG 315 ==
LOC: ER 03:45 → 2 SOUTH 05:55
PROVIDERS: ADMIT Family Medicine; ATTEND Family Medicine
DX: I95.9 Hypotension, unspecified (principal); N17.9 Acute kidney failure, unspecified; I69.354 Hemiplegia and hemiparesis following cerebral infarction affecting left non-dominant side; E11.9 Type 2 diabetes mellitus without complications; E78.00 Pure hypercholesterolemia, unspecified; E78.5 Hyperlipidemia, unspecified; F12.90 Cannabis use, unspecified, uncomplicated; F17.210 Nicotine dependence, cigarettes, uncomplicated; F32.9 Major depressive disorder, single episode, unspecified; F41.9 Anxiety disorder, unspecified; I10 Essential (primary) hypertension; W18.11XA Fall from or off toilet without subsequent striking against object, initial encounter; Z82.3 Family history of stroke; Z82.49 Family history of ischemic heart disease and other diseases of the circulatory system; Z91.19 Patient's noncompliance with other medical treatment and regimen; G43.909 Migraine, unspecified, not intractable, without status migrainosus; Z88.8 Allergy status to other drugs, medicaments and biological substances; Z88.0 Allergy status to penicillin; Y93.89 Activity, other specified; Y92.89 Other specified places as the place of occurrence of the external cause; Y99.8 Other external cause status; Z71.6 Tobacco abuse counseling; Z90.49 Acquired absence of other specified parts of digestive tract
CPT/HCPCS: 36415; 70450; 71045; 72125; 80048; 80053; 81001; 81025; 82962; 83036; 83605; 83690; 84443; 85025; 87040; 93005; 96365; 96367; 96375; 99285; J0171; J0692; J1815; J2310; J3370; J3490; J7030; J7040; J7060; 97110-GP; 97116-GP; 97530-GO; 97530-GP; 97535-GO; G0378; Q0163

== ENCOUNTER 2021-01-21 09:59 | Day surgery (SDC) | payer OTHER ==
[~2021-01-21] VITALS: Ht 165.1 cm; Wt 104.0 kg
[~2021-01-21 09:59] MED LIST changes: +HYDROmorphone 2 MG/ML VIAL IVP PRN; +IV RINGERS,LACTATED 1000ML 1,000 ML IV SCH; +METF500T16 PO; +MORPHINE SULFATE 2 MG/ML INJ. IVP PRN; -OMEP40CA45 PO; +OMEP40CA7 PO; +PROCHLORPERAZINE 10 MG/2 ML VIAL. IVP PRN; +fentaNYL PF VIAL 100 MCG/2 ML VIAL IVP PRN
[2021-01-21] MEDS ORDERED: CHOL10004 PO (10:29)
[2021-01-21 10:41] LABS: BASO # 0.1 x10^3/uL (0.0-0.2); BASO % 1 % (0-3); EOS # 0.2 x10^3/uL (0.0-0.7); EOS % 2 % (0-3); HEMATOCRIT 43.8 % (36.0-47.0); HEMOGLOBIN 15.4 g/dL (12.0-15.5); LYMPH # 2.4 x10^3/uL (1.0-4.8); LYMPH % 24 % (24-48); MEAN CORPUSCULAR HEMOGLOBIN 31 pg (25-35); MEAN CORPUSCULAR HGB CONC 35 g/dL (31-37); MEAN CORPUSCULAR VOLUME 89 fL (79-100); MONO # 0.6 x10^3/uL (0.0-1.1); MONO % 6 % (0-9); NEUT # 6.5 x10^3/uL (1.8-7.7); NEUT % 67 % (31-73); PLATELET COUNT 274 x10^3/uL (140-400); RED BLOOD COUNT 4.91 x10^6/uL (3.50-5.40); RED CELL DISTRIBUTION WIDTH 12.9 % (11.5-14.5); WHITE BLOOD COUNT 9.8 x10^3/uL (4.0-11.0)
[2021-01-21] MEDS ORDERED: INSULIN LISPRO 100 UNIT/ML 3ML VIAL for OP,RR ONLY. SQ PRN (10:45)
[2021-01-21 10:58] LABS: CALCIUM 9.2 mg/dL (8.5-10.1); CREATININE 0.9 mg/dL (0.6-1.0); GFR 66.5; POTASSIUM 3.7 mmol/L (3.5-5.1)
[2021-01-21 11:04] LABS: ALBUMIN 3.6 g/dL (3.4-5.0); ALBUMIN/GLOBULIN RATIO 1.1 (1.0-1.7); TOTAL BILIRUBIN 0.4 mg/dL (0.2-1.0)
[2021-01-21] MEDS ORDERED: INSULIN LISPRO 100 UNIT/ML 3ML VIAL for OP,RR ONLY. SQ ONE (11:05)
--- NOTE | 2021-01-21 11:23 | PDOC1 ---
History and Physical Date of Admission Date of Admission DATE: 01/21/21 TIME: 11:06 Identification/Chief Complaint Chief Complaint Plantar wart Source Source: Patient History of Present Illness History of Present Illness Ms Encinas is a 49-year-old female w/ PMHx anxiety with depression, GERD, HTN, HLD, DM2, smoker, and CVA with residual right sided weakness who comes to outpatient surgery for painful right 5th MTP plantar wart surgical treatment. Has failed outpatient conservative treatments and sharp debridements. Has been painful to her for over a year. S/p COVID 19 vaccine Lucas and Lucas 10/23/2020. At baseline she does have residual right-sided weakness and uses a four-wheel walker for ambulation. She did have a CVA in 2019, no cardiac history. A1c 7.2. No recent travel or sick contacts. Labs NA 140 3K3.7, BUN 10, CR 0.9, glucose 123, WBC 9.8, Hb 15.4, platelets 274. Past Medical History Cardiovascular: HTN, Hyperlipidemia CENTRAL NERVOUS SYSTEM: CVA, Migraine Psych: Anxiety, Depression Past Surgical History Past Surgical History: Cholecystectomy, Tonsillectomy Family History Family History: High Cholestrol Family History: Parent Social History Smoke: <1 pack per day ALCOHOL: none Drugs: None Current Medications Current Medications Current Medications Fentanyl Citrate (Fentanyl 2ml Vial) 25 mcg PRN Q5MIN PRN IVP MILD PAIN 1-3; Start 01/21/21 at 06:00; Stop 01/22/21 at 05:59 Fentanyl Citrate (Fentanyl 2ml Vial) 50 mcg PRN Q5MIN PRN IVP MODERATE PAIN 4- 6; Start 01/21/21 at 06:00; Stop 01/22/21 at 05:59 Morphine Sulfate (Morphine Sulfate) 1 mg PRN Q10MIN PRN IVP SEVERE PAIN 7-10; Start 01/21/21 at 06:00; Stop 01/22/21 at 05:59 Ringer's Solution 1,000 ml @ 30 mls/hr Q24H IV Last administered on 01/21/21at 10:45; Start 01/21/21 at 06:00; Stop 01/21/21 at 17:59 Hydromorphone HCl (Dilaudid) 0.5 mg PRN Q10MIN PRN IVP SEVERE PAIN 7-10, 2nd CHOICE; Start 01/21/21 at 06:00; Stop 01/22/21 at 05:59 Prochlorperazine Edisylate (Compazine) 5 mg PACU PRN PRN IVP NAUSEA, MRX1; Start 01/21/21 at 06:00; Stop 01/22/21 at 05:59 Insulin Human Lispro (HumaLOG VIAL for OP,RR ONLY) 0-10 units PRN Q1HR PRN SQ PER PROTOCOL; Start 01/21/21 at 10:45; Stop 01/22/21 at 10:44 Active Scripts Active Metformin Hcl 500 Mg Tablet 500 Mg PO BIDWMEALS 90 Days Aspirin Ec (Aspirin) 325 Mg Tablet.dr 325 Mg PO DAILYWBKFT Reported Vitamin D3 (Vitamin D) 25 Mcg Tablet 0 PO DAILY 1,000 UNITS = 25 MCG Viibryd (Vilazodone Hydrochloride) 40 Mg Tablet 1 Tab PO DAILY Clonazepam 1 Mg Tablet 0.5 Mg PO PRN TID PRN Prazosin Hcl 5 Mg Capsule 1 Cap PO QHS Atorvastatin Calcium 40 Mg Tablet 40 Mg PO HS Trazodone Hcl 150 Mg Tablet 150 Mg PO HS Lisinopril 40 Mg Tablet 40 Mg PO DAILY Omeprazole 40 Mg Capsule.dr 40 Mg PO DAILY Allergies Allergies: Coded Allergies: Penicillins (Verified Allergy, Intermediate, Unknown, 01/21/21) ceftriaxone (Verified Allergy, Intermediate, Itching, 01/21/21) lorazepam (Verified Allergy, Intermediate, Itching, 01/21/21) ROS General: No: Chills, Night Sweats, Fatigue, Malaise, Appetite, Other PSYCHOLOGICAL ROS: No: Anxiety, Behavioral Disorder, Concentration difficultie, Decreased libido, Depression, Disorientation, Hallucinations, Hostility, Irritablity, Memory difficulties, Mood Swings, Obsessive thoughts, Physical abuse, Sexual abuse, Sleep disturbances, Suicidal ideation, Other Eyes: No Blurry vision, No Decreased vision, No Double vision, No Dry eyes, No Excessive tearing, No Eye Pain, No Itchy Eyes, No Loss of vision, No Photophobia, No Scotomata, No Uses contacts, No Uses glasses, No Other HEENT: No: Heacaches, Visual Changes, Hearing change, Nasal congestion, Nasal discharge, Oral lesions, Sinus pain, Sore Throat, Epistaxis, Sneezing, Snoring, Tinnitus, Vertigo, Vocal changes, Other ALLERGY AND IMMUNOLOGY: No: Hives, Insect Bite Sensitivity, Itchy/Watery Eyes, Nasal Congestion, Post Nasal Drip, Seasonal Allergies, Other Hematological and Lymphatic: No: Bleeding Problems, Blood Clots, Blood Transfusions, Brusing, Night Sweats, Pallor, Swollen Lymph Nodes, Other ENDOCRINE: No: Breast Changes, Galactorrhea, Hair Pattern Changes, Hot Flashes, Malaise/lethargy, Mood Swings, Palpitations, Polydipsia/polyuria, Skin Changes, Temperature Intolerance, Unexpected Weight Changes, Other Breast: No New/Changing Breast Lumps, No Nipple changes, No Nipple discharge, No Other Respiratory: No: Cough, Hemoptysis, Orthopnea, Pleuritic Pain, Shortness of breath, SOB with excertion, Sputum Changes, Stridor, Tachypnea, Wheezing, Other Cardiovascular: No Chest Pain, No Palpitations, No Orthopnea, No Paroxysmal Noc. Dyspnea, No Edema, No Lt Headedness, No Other Gastrointestinal: No Nausea, No Vomiting, No Abdominal Pain, No Diarrhea, No Constipation, No Melena, No Hematochezia, No Other Genitourinary: No Dysuria, No Frequency, No Incontinence, No Hematuria, No Retention, No Discharge, No Urgency, No Pain, No Flank Pain, No Other, No , No , No , No , No , No , No Musculoskeletal: Yes Gait Disturbance, Yes Joint Pain; No Joint Stiffness, No Joint Swelling, No Muscle Pain, No Muscular Weakness, No Pain In:, No Swelling In:, No Other Neurological: No Behavorial Changes, No Bowel/Bladder ControlChng, No Confusion, No Dizziness, No Gait Disturbance, No Headaches, No Impaired Coord/balance, No Memory Loss, No Numbness/Tingling, No Seizures, No Speech Problems, No Tremors, No Visual Changes, No Weakness, No Other Skin: No Dry Skin, No Eczema, No Hair Changes, No Lumps, No Mole Changes, No Mottling, No Nail Changes, No Pruritus, No Rash, No Skin Lesion Changes, No Other, No Acne Physical Exam General: Alert, Oriented X3, Cooperative, No acute distress HEENT: Atraumatic, PERRLA, EOMI, Mucous membr. moist/pink Lungs: Clear to auscultation, Normal air movement Heart: S1S2, RRR, no thrills, no rubs, no gallops, no murmurs Abdomen: Normal bowel sounds, Soft, No tenderness, No hepatosplenomegaly, No masses Rectal Exam: not examined Extremities: No clubbing, No cyanosis, No edema, Normal pulses, No tenderness/swelling Skin: No rashes, No breakdown, No significant lesion, Other (Right plantar wart [id number], painful) Neuro: Normal speech, Strength at 5/5 X4 ext, Normal tone, Sensation intact, Cranial nerves 3-12 NL, Reflexes 2+, Other (unsteady gait, right arm and leg weakness compared to left) Psych/Mental Status: Mental status NL, Mood NL Vitals Vitals Vital Signs Date Time Temp Pulse Resp B/P (MAP) Pulse Ox O2 Delivery O2 Flow Rate FiO2 01/21/21 10:36 97 70 18 130/79 96 Room Air 97.0 Labs Labs Laboratory Tests Test 01/21/21 10:30 01/21/21 10:35 Glucose (Fingerstick) 123 mg/dL (70-99) White Blood Count 9.8 x10^3/uL (4.0-11.0) Red Blood Count 4.91 x10^6/uL (3.50-5.40) Hemoglobin 15.4 g/dL (12.0-15.5) Hematocrit 43.8 % (36.0-47.0) Mean Corpuscular Volume 89 fL (79-100) Mean Corpuscular Hemoglobin 31 pg (25-35) Mean Corpuscular Hemoglobin Concent 35 g/dL (31-37) Red Cell Distribution Width 12.9 % (11.5-14.5) Platelet Count 274 x10^3/uL (140-400) Neutrophils (%) (Auto) 67 % (31-73) Lymphocytes (%) (Auto) 24 % (24-48) Monocytes (%) (Auto) 6 % (0-9) Eosinophils (%) (Auto) 2 % (0-3) Basophils (%) (Auto) 1 % (0-3) Neutrophils # (Auto) 6.5 x10^3/uL (1.8-7.7) Lymphocytes # (Auto) 2.4 x10^3/uL (1.0-4.8) Monocytes # (Auto) 0.6 x10^3/uL (0.0-1.1) Eosinophils # (Auto) 0.2 x10^3/uL (0.0-0.7) Basophils # (Auto) 0.1 x10^3/uL (0.0-0.2) Sodium Level 143 mmol/L (136-145) Potassium Level 3.7 mmol/L (3.5-5.1) Chloride Level 104 mmol/L (98-107) Carbon Dioxide Level 29 mmol/L (21-32) Anion Gap 10 (6-14) Blood Urea Nitrogen 10 mg/dL (7-20) Creatinine 0.9 mg/dL (0.6-1.0) Estimated GFR (Cockcroft-Gault) 66.5 BUN/Creatinine Ratio 11 (6-20) Glucose Level 116 mg/dL (70-99) Calcium Level 9.2 mg/dL (8.5-10.1) Laboratory Tests Test 01/21/21 10:30 01/21/21 10:35 Glucose (Fingerstick) 123 mg/dL (70-99) White Blood Count 9.8 x10^3/uL (4.0-11.0) Red Blood Count 4.91 x10^6/uL (3.50-5.40) Hemoglobin 15.4 g/dL (12.0-15.5) Hematocrit 43.8 % (36.0-47.0) Mean Corpuscular Volume 89 fL (79-100) Mean Corpuscular Hemoglobin 31 pg (25-35) Mean Corpuscular Hemoglobin Concent 35 g/dL (31-37) Red Cell Distribution Width 12.9 % (11.5-14.5) Platelet Count 274 x10^3/uL (140-400) Neutrophils (%) (Auto) 67 % (31-73) Lymphocytes (%) (Auto) 24 % (24-48) Monocytes (%) (Auto) 6 % (0-9) Eosinophils (%) (Auto) 2 % (0-3) Basophils (%) (Auto) 1 % (0-3) Neutrophils # (Auto) 6.5 x10^3/uL (1.8-7.7) Lymphocytes # (Auto) 2.4 x10^3/uL (1.0-4.8) Monocytes # (Auto) 0.6 x10^3/uL (0.0-1.1) Eosinophils # (Auto) 0.2 x10^3/uL (0.0-0.7) Basophils # (Auto) 0.1 x10^3/uL (0.0-0.2) Sodium Level 143 mmol/L (136-145) Potassium Level 3.7 mmol/L (3.5-5.1) Chloride Level 104 mmol/L (98-107) Carbon Dioxide Level 29 mmol/L (21-32) Anion Gap 10 (6-14) Blood Urea Nitrogen 10 mg/dL (7-20) Creatinine 0.9 mg/dL (0.6-1.0) Estimated GFR (Cockcroft-Gault) 66.5 BUN/Creatinine Ratio 11 (6-20) Glucose Level 116 mg/dL (70-99) Calcium Level 9.2 mg/dL (8.5-10.1) VTE Prophylaxis Ordered VTE Prophylaxis Devices: Yes VTE Pharmacological Prophylaxi: No Assessment/Plan Assessment/Plan A/P: Right 5th MTP plantar wart - painful, failed conservative outpatient therapy, going for surgical debridement today. Will check UA, HCG pre-op DM2 - glucose < 140, no insulin pre op. 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 Counseled on cessation for 5 minutes. Recommend low dose CT lung ca screening at age 56 H/o left hemispheric CVA with residual right sided weakness - has walker and outpatient rehab. Recommendations: Cont home meds post-op Check UA and HCG pre op No further testing after UA obtained, moderate pre-op risk for low risk surgery. Can proceed with surgery Justifications for Admission Other Justification JEFFREY MCDOWELL MD Jan 21, 2021 11:23
[2021-01-21] MEDS ORDERED: LIDOCAINE 2% PF 5 ML VIAL. ONE (11:36)
[2021-01-21] MEDS ORDERED: PROPOFOL 10 MG/ML (20ML) VIAL. IV ONE (11:36)
[2021-01-21] MEDS ORDERED: DEXAMETHASONE SOD PHOS 4 MG/ML VIAL ONE ×3 (11:37→11:44)
[2021-01-21] MEDS ORDERED: ONDANSETRON PF 4 MG/2 ML VIAL. ONE (11:37)
[2021-01-21] MEDS ORDERED: LIDOCAINE 1% PF 30 ML VIAL. ONE (11:43)
[2021-01-21] MEDS ORDERED: POVIDONE-IODINE 10% TOPICAL OINTMENT 28GM TUBE. TP ONE (11:43)
[2021-01-21] MEDS ORDERED: BUPIVACAINE MPF 0.5% 30 ML VIAL. ONE (11:44)
[2021-01-21] MEDS ORDERED: LIDOCAINE 1%/EPI 1:100,000 20 ML VIAL. ONE (12:13)
--- NOTE | 2021-01-21 12:52 | PDOC4 ---
OPERATIVE NOTE: Surgeon: Kylee Pre op diagnosis: Verruca plantaris right foot post op diagnosis: Same Procedure: surgical currettement with hyfercation right foot verruca Anesthesia: LMA with local Hemostasis: none EBL 0mL Intraoperative findings: cauliform lesion plantar 5th metatarsal head to the basement membrane with no communication to adipose or sinus tracts. Patient tolerated anesthesia and procedure well. Transferred to PACU with VSS and VSI to right foot ITALIA DOS SANTOS DPM Jan 21, 2021 12:52
[2021-01-21] MEDS ORDERED: IBUPROFEN 400 MG TABLET. PO ONE (13:15)
[2021-01-21 13:28] VITALS: BP 163/88
[2021-01-21] MEDS ORDERED: IBUP-1060 PO (13:30)
--- NOTE | 2021-01-21 16:26 | OP ---
DATE OF SURGERY: 01/21/2021 PREOPERATIVE DIAGNOSIS: Verruca plantaris, right foot. POSTOPERATIVE DIAGNOSIS: Verruca plantaris, right foot. PROCEDURE: Surgical curettement with hyfrecation of the right foot verruca. SURGEON: Sarbjit Pichardo DPM. ANESTHESIA: LMA with local. INDICATIONS: The patient is a 50-year-old female with a chronic recurrent lesion in sub fifth metatarsal head of the right foot. The patient had had previous removal by her primary care doctor and when it recurred, she came in and discussed with the patient the treatment options of surgical curettement for biopsy, topical ointments and/or Cantharone application. The patient wished to proceed with surgical curettement and due to her previous experience and due to the size of the lesion, she wished to have this performed in the operating room under anesthesia. Discussed with the patient possible risks, benefits and complications to include delayed or nonhealing, need for further surgery, recurrence, damage to nerve or blood vessels, infection, loss of foot, limb or life, chronic pain, chronic swelling. All questions were answered. The patient wished to proceed with the above said procedure. No guarantees made. DESCRIPTION OF PROCEDURE: The patient was transported to the operating room via cart and placed on the operating room table in supine position. Following verification of the surgery, the patient's limb was performed. LMA was given per Anesthesia and a local infiltrative block of 4 mL of 1% lidocaine with epinephrine was then given to infiltrate a block to the surgical sites. The right foot was then prepped and draped in the usual aseptic manner. Attention was directed to the lesion, sub fifth metatarsal head, which measured 2 x 2 cm. A scalpel was used to debride the superficial hyperkeratotic tissue. Next, a curette was used to curettage the remaining lesion down to the level of the base of membrane with care taken to include all borders. This tissue was noted to be very thick and coliform like, noted the clear borders and base of membrane intact with no pustular drainage, no sinus tracts, no communication to the deeper tissues. Next, a cautery was used to hyfrecate the tissue and then again it was debrided and then again hyfrecated and then again it was debrided. The wound was then copiously irrigated with sterile saline and the wound was covered with Betadine ointment, Xeroform gauze, 4 x 4s, Kerlix bandage, Edgar bandage. The patient is to leave the dressing intact for 48 hours and then may begin daily local wound care with the Betadine ointment, Xeroform gauze and Band-Aid. The patient is to follow up in the clinic in 2 weeks for followup or sooner if any signs of infection or increased pain. She is to begin ibuprofen 800 mg t.i.d. p.r.n. pain at this time. Postop instructions are in the chart. TRENA DR: Kylah TID: [id number]
--- NOTE | 2021-01-22 18:06 | PATHOLOGY ---
[facility] Accession Number: [id number] . 01 Material submitted: . foot - LESIONS WART RIGHT FOOT. Modifiers: right . 02 Diagnosis: Segments of skin, right foot lesion curettings: - Plantar verruca. (M:shayan; 01/22/2021) R 01/22/2021 1549 Local . 02 Comment: There is no evidence of malignancy. (GASTONM:shayan; 01/22/2021) . 02 Electronically signed: . Tim Sood MD, Pathologist NPI- [id number] . 01 Gross description: . The specimen is received in formalin, labeled "[place] Encinas, lesion/wart R foot". Received are multiple segments of pale mukherjee to light mukherjee skin with possible soft tissue measuring 2.9 x 2.0 x 0.4 cm in greatest dimensions. One segment displays distinct epidermal surface displays a ill-defined, flat and light mukherjee lesion measuring 1.5 x 1.0 cm. The surgical margin is inked. The segment is quadrisected and entirely submitted in cassette A1. The remainder of the specimen is submitted in its entirety in cassette A2. (CAA; 01/21/2021) QAC/QAC 01/21/2021 1649 Local . 02 Pathologist provided ICD-10: B07.0 . 02 CPT . 370400 Specimen Comment: A courtesy copy of this report has been sent to [phone] Specimen Comment: Report sent to Specimen Comment: A duplicate report has been generated due to demographic updates. Performed at: 01 [facility] [address], [place], [place] [id number] MD Jaret Mccord MD Phone: [phone] Performed at: [address] [id number] MD Tim Sood MD Phone: [phone]
== END 2021-01-21 14:00 | disposition home or self-care (01) ==
LOC: SURG 09:59
PROVIDERS: ATTEND Podiatrist Foot & Ankle Surgery
DX: B07.0 Plantar wart (principal); I10 Essential (primary) hypertension; E78.00 Pure hypercholesterolemia, unspecified; K21.9 Gastro-esophageal reflux disease without esophagitis; E11.40 Type 2 diabetes mellitus with diabetic neuropathy, unspecified; F41.9 Anxiety disorder, unspecified; F32.9 Major depressive disorder, single episode, unspecified; E66.9 Obesity, unspecified; F17.210 Nicotine dependence, cigarettes, uncomplicated; Z90.49 Acquired absence of other specified parts of digestive tract; Z98.890 Other specified postprocedural states
CPT/HCPCS: 17110; 36415; 80053; 82962; 85025; 88305; A4209; A4930; A6223; A6402; A6449; J1100; J1815; J2405; J2704; J3490; A4657

== ENCOUNTER → 2021-04-24 | Outpatient (CLI) | payer OTHER ==
[~2021-04-24] MED LIST changes: +CHOL10004 PO; -HYDROmorphone 2 MG/ML VIAL IVP PRN; +IBUP-1060 PO; -IV RINGERS,LACTATED 1000ML 1,000 ML IV SCH; -MORPHINE SULFATE 2 MG/ML INJ. IVP PRN; -PROCHLORPERAZINE 10 MG/2 ML VIAL. IVP PRN; -fentaNYL PF VIAL 100 MCG/2 ML VIAL IVP PRN
--- NOTE | 2021-04-24 16:56 | RAD ---
Bilateral digital screening mammograms: Reason for examination: Routine screening. Comparison is made to previous study dated 07/28/2017. Interpretation was made with the benefit of CAD. Findings: Breast density: Category B. There are scattered areas of fibroglandular density. There are no dominant masses, suspicious calcifications or architectural distortions. IMPRESSION: No evidence of malignancy. Assessment: BI-RADS Category 1: Negative. Recommendation: Routine screening mammograms. This patient's information has been entered into a reminder system for the patient to be notified wit h the results of her examination and a target date for the next mammogram. Electronically signed by: Anabell Hills MD (04/24/2021 4:54 PM) [id number]
== END ==
LOC: MAMMO 15:14
PROVIDERS: ATTEND Physician Assistant Medical
DX: Z12.31 Encounter for screening mammogram for malignant neoplasm of breast (principal)
CPT/HCPCS: 77067

== ENCOUNTER 2021-05-09 16:28 | Emergency (ER) | payer OTHER ==
[~2021-05-09] VITALS: Ht 165.1 cm; Wt 108.1 kg
[2021-05-09] MEDS ORDERED: IV NORMAL SALINE 1000ML BAG 1,000 ML IV ONE ×2 (17:00→19:15)
--- NOTE | 2021-05-09 17:16 | PHYS DOC ---
Past Medical History Past Medical History: Anxiety, Depression, High Cholesterol, Hypertension, Stroke (GUILLERMO TAYLOR APRN) Past Surgical History: Cholecystectomy (GUILLERMO TAYLOR APRN) Smoking Status: Current Every Day Smoker Alcohol Use: None Drug Use: Marijuana (GUILLERMO TAYLOR APRN) General Adult EDM: Chief Complaint: MULTIPLE COMPLAINTS HPI: HPI: Patient is a 50-year-old female that presents today with diarrhea since Wednesday. Patient states that she has had diarrhea since Wednesday she has episodes of incontinence that have been ongoing for 6 months but is worsened since the diarrhea started on Wednesday. Patient states she has had incontinence of urine in the last 6 months but not of stool since, and starting Wednesday she started having incontinence of stool. Patient states she had a stroke in December 2019, she states that since that time she had multiple health issues, she has not followed up with her primary care physician for management of her incontinence, states she saw her ESTHETICIAN/SKIN THERAPIST for female exam about a month ago and forgot to mention that. Patient also is having lower abdominal pain that radiates to her back that started on Wednesday as well. Patient states that she has had chills since Wednesday as well denies cough or chest pain or shortness of air at this time. Patient denies dysuria. Patient does states she has had her gallbladder removed but still has her appendix. (GUILLERMO TAYLOR SOCIAL SCIENCES DEPARTMENT CHAIR) Review of Systems: Review of Systems: Constitutional: Chills Eyes: Denies change in visual acuity. [] HENT: Denies nasal congestion or sore throat. [] Respiratory: Denies cough or shortness of breath. [] Cardiovascular: Denies chest pain or edema. [] GI: Abdominal pain and diarrhea, denies bloody stools mucousy stool or nausea and vomiting : Denies dysuria. [] Musculoskeletal: Denies back pain or joint pain. [] Integument: Denies rash. [] Neurologic: Denies headache, focal weakness or sensory changes. [] Endocrine: Denies polyuria or polydipsia. [] Lymphatic: Denies swollen glands. [] Psychiatric: Denies depression or anxiety. [] (GUILLERMO TAYLOR SOCIAL SCIENCES DEPARTMENT CHAIR) Heart Score: C/O Chest Pain: N/A Risk Factors: Risk Factors: DM, Current or recent (<one month) smoker, HTN, HLP, family history of CAD, obesity. Risk Scores: Score 0 - 3: 2.5% MACE over next 6 weeks - Discharge Home Score 4 - 6: 20.3% MACE over next 6 weeks - Admit for Clinical Observation Score 7 - 10: 72.7% MACE over next 6 weeks - Early Invasive Strategies (GUILLERMO TAYLOR APRN) Current Medications: Current Medications Medications (Trade) Dose Ordered Sig/Diony Start Time Stop Time Status Last Admin Dose Admin Sodium Chloride 1,000 ml @ 999 mls/hr 1X ONCE 05/09/21 17:00 05/09/21 18:00 (GUILLERMO TAYLOR APRN) Allergies: Allergies: Allergies Coded Allergies Type Severity Reaction Last Updated Verified Penicillins Allergy Intermediate Unknown 01/21/21 Yes ceftriaxone Allergy Intermediate Itching 01/21/21 Yes lorazepam Allergy Intermediate Itching 01/21/21 Yes (GUILLERMO TAYLOR APRN) Physical Exam: PE: Constitutional: Well developed, well nourished, no acute distress, non-toxic appearance. [] HENT: Normocephalic, atraumatic, bilateral external ears normal, oropharynx moist, no oral exudates, nose normal. [] Eyes: PERRLA, EOMI, conjunctiva normal, no discharge. [] Neck: Normal range of motion, no tenderness, supple, no stridor. [] Cardiovascular:Heart rate regular rhythm, no murmur [] Lungs & Thorax: Bilateral breath sounds coarse Abdomen: Abdomen diffuse tenderness throughout, bowel sounds are hyperactive, no masses or pulsatile areas noted. Skin: Warm, dry, no erythema, no rash. [] Back: No tenderness, no CVA tenderness. [] Extremities: No tenderness, no cyanosis, no clubbing, ROM intact, no edema. [] Neurologic: Alert and oriented X 3, normal motor function, normal sensory function, no focal deficits noted. [] Psychologic: Affect normal, judgement normal, mood normal. [] (GUILLERMO TAYLOR APRN) Current Patient Data: Labs: Laboratory Tests Test 05/09/21 17:20 05/09/21 19:48 White Blood Count 9.0 x10^3/uL Red Blood Count 5.14 x10^6/uL Hemoglobin 15.6 g/dL Hematocrit 45.7 % Mean Corpuscular Volume 89 fL Mean Corpuscular Hemoglobin 30 pg Mean Corpuscular Hemoglobin Concent 34 g/dL Red Cell Distribution Width 12.3 % Platelet Count 289 x10^3/uL Neutrophils (%) (Auto) 67 % Lymphocytes (%) (Auto) 26 % Monocytes (%) (Auto) 5 % Eosinophils (%) (Auto) 1 % Basophils (%) (Auto) 1 % Neutrophils # (Auto) 6.1 x10^3/uL Lymphocytes # (Auto) 2.3 x10^3/uL Monocytes # (Auto) 0.4 x10^3/uL Eosinophils # (Auto) 0.1 x10^3/uL Basophils # (Auto) 0.1 x10^3/uL Maternal Serum HCG Beta Subunit 2 mIU/mL Sodium Level 138 mmol/L Potassium Level 3.5 mmol/L Chloride Level 104 mmol/L Carbon Dioxide Level 28 mmol/L Anion Gap 6 Blood Urea Nitrogen 7 mg/dL Creatinine 0.9 mg/dL Estimated GFR (Cockcroft-Gault) 66.5 BUN/Creatinine Ratio 8 Glucose Level 80 mg/dL Calcium Level 8.7 mg/dL Total Bilirubin 0.6 mg/dL Aspartate Amino Transf (AST/SGOT) 16 U/L Alanine Aminotransferase (ALT/SGPT) 28 U/L Alkaline Phosphatase 116 U/L Total Protein 6.7 g/dL Albumin 3.5 g/dL Albumin/Globulin Ratio 1.1 Lipase 48 U/L Urine Collection Type Unknown Urine Color Yellow Urine Clarity Clear Urine pH 6.0 Urine Specific [place] <=1.005 Urine Protein Negative mg/dL Urine Glucose (UA) Negative mg/dL Urine Ketones (Stick) Negative mg/dL Urine Blood Negative Urine Nitrite Negative Urine Bilirubin Negative Urine Urobilinogen Dipstick 0.2 mg/dL Urine Leukocyte Esterase Negative Urine RBC 0 /HPF Urine WBC 0 /HPF Urine Squamous Epithelial Cells Occ /LPF Urine Bacteria 0 /HPF Urine Mucus Slight /LPF Current Medications Medications (Trade) Dose Ordered Sig/Diony Route PRN Reason Start Time Stop Time Status Last Admin Dose Admin Sodium Chloride 1,000 ml @ 999 mls/hr 1X ONCE IV 05/09/21 17:00 05/09/21 18:00 DC 05/09/21 17:00 Ondansetron HCl (Zofran) 4 mg 1X ONCE IVP 12/17/21 17:45 05/09/21 17:48 DC 05/09/21 18:03 Fentanyl Citrate (Fentanyl 2ml Vial) 25 mcg 1X ONCE IVP 05/09/21 17:45 05/09/21 17:48 DC 05/09/21 18:06 Iohexol (Omnipaque 300 Mg/ml) 75 ml 1X ONCE IV 05/09/21 18:00 05/09/21 18:01 DC 05/09/21 19:51 Fentanyl Citrate (Fentanyl 2ml Vial) 25 mcg 1X ONCE IVP 05/09/21 19:00 05/09/21 19:01 DC 05/09/21 18:38 Sodium Chloride 1,000 ml @ 999 mls/hr 1X ONCE IV 05/09/21 19:15 05/09/21 20:15 DC 05/09/21 19:15 Vital Signs: Vital Signs Date Time Temp Pulse Resp B/P (MAP) Pulse Ox O2 Delivery O2 Flow Rate FiO2 05/09/21 21:00 54 16 179/101 (127) 100 Room Air 05/09/21 20:15 60 16 190/120 (143) 98 05/09/21 19:15 54 16 175/100 (125) 94 05/09/21 18:38 20 96 Room Air 05/09/21 18:06 20 96 Room Air 05/09/21 17:25 60 18 152/104 (120) 96 Room Air 05/09/21 16:45 98.6 64 20 178/95 (122) 98 Room Air 98.6 Vital Signs Date Time Temp Pulse Resp B/P (MAP) Pulse Ox O2 Delivery O2 Flow Rate FiO2 05/09/21 18:38 20 96 Room Air 05/09/21 18:06 20 96 Room Air 05/09/21 17:25 60 18 152/104 (120) 96 Room Air 05/09/21 16:45 98.6 64 20 178/95 (122) 98 Room Air 98.6 (GUILLERMO TAYLOR APRN) EKG: EKG: [] (GUILLERMO TAYLOR APRN) Radiology/Procedures: Radiology/Procedures: [REASON: abdominal pain with diarrhea, omni 300 75 ml iv PROCEDURE: CT ABD PELV W/ IV CONTRST ONLY CT abdomen pelvis with contrast dated 05/09/2021. COMPARISON: None clinical indication: Abdominal pain and diarrhea TECHNIQUE: Contiguous axial imaging the M pelvis performed after the administration of 75 cc Omnipaque 300. One or more of the following individualized dose reduction techniques were utilized for this examination: 1. Automated exposure control 2. Adjustment of the mA and/or kV according to patient size 3. Use of iterative reconstruction technique FINDINGS: Limited images of lung bases are clear. Heart size within normal limits. No pleural or pericardial effusion. Linear bands of increased density at the dependent lower lobes, likely atelectasis. Liver is homogeneous. No focal hepatic mass. Intrahepatic and extra medullary tree are mildly prominent with scattered pneumobilia. No filling defect. The gallbladder is surgically absent. Spleen is normal in size. Pancreas, adrenal glands and kidneys unremarkable. No hydronephrosis. There is mild wall thickening of the right colon and hepatic flexure. The appendix is normal in caliber. GI tract is otherwise normal in caliber. No lymp hadenopathy. No significant ascites. Images of pelvis show nondistended urinary bladder. Uterus and adnexa are unremarkable. No free fluid. No pelvic adenopathy. Bone windows show no acute findings. IMPRESSION: 1. There is mild wall thickening of the right colon and hepatic flexure suggesting mild colitis. Consider infectious or inflammatory causes. 2. Mild prominence of the intrahepatic and extra hepatic biliary tree with scattered pneumobilia. This is likely related to prior sphincterotomy. There is no apparent obstructing stone. Correlate with laboratory values. 3. Normal appendix. Electronically signed by: Mayur Haynes MD (05/09/2021 8:13 PM) [facility] (GUILLERMO TAYLOR APRN) Course & Med Decision Making: Course & Med Decision Making Pertinent Labs and Imaging studies reviewed. (See chart for details) [address] regarding CT results and lab results, concerned with infectious colitis due to the length of the symptoms patient's been having. We will give patient an injection of Bentyl for abdominal cramps, will also order Cipro and Flagyl for the patient for the possibility of infectious colitis. Patient understands the discharge instruction and is agreeable to the plan of care (GUILLERMO TAYLOR APRN) Pedro Disclaimer: Pedro Disclaimer: This electronic medical record was generated, in whole or in part, using a voice recognition dictation system. (GUILLERMO TAYLOR APRN) Departure Departure Impression: Primary Impression: Colitis Additional Impressions: Abdominal pain Qualified Codes: R10.84 - Generalized abdominal pain Diarrhea Qualified Codes: R19.7 - Diarrhea, unspecified Disposition: HOME / SELF CARE / HOMELESS Condition: STABLE Referrals: UMAIR PHAN (PCP) Patient Instructions: Clear Liquid Diet, Colitis, Diarrhea, Diet for Diarrhea, Adult Additional Instructions: Follow a clear liquid diet for the next 12 to 24 hours, then advance to a brat diet (bananas, rice, applesauce, toast, and potatoes), then advance your diet as tolerated Bentyl by mouth every 6 hours as needed for abdominal cramps Cipro 1 tablet twice daily for 7 days Flagyl 1 tablet 3 times daily for 7 days Increase your by mouth fluids Follow-up with your primary care physician on Wednesday by phone for further management of your abdominal pain and for the incontinence issues you have been experiencing for the over 6 months Return to the emergency department if you develop a fever, inability to keep p.o. fluids down, or have any other concerns. Scripts Dicyclomine Hcl (DICYCLOMINE HCL) 10 Mg Capsule 1 CAP PO PRN Q6HRS, #20 CAP 3 Refills Prov: GUILLERMO TAYLOR APR05/09/21 Metronidazole (METRONIDAZOLE) 500 Mg Tablet 1 TAB PO BID for 7 Days, #14 TAB 0 Refills Prov: GUILLERMO TAYLOR APR05/09/21 Ciprofloxacin Hcl (CIPRO) 500 Mg Tablet 1 TAB PO BID for colitis for 7 Days, #14 TAB 0 Refills Prov: GUILLERMO TAYLOR APRN 05/09/21 Attending Signature Attending Signature I have reviewed the PA/LOG CHIPPER OPERATOR's note and plan of care. I was available for consultation as needed during the patient's visit in the emergency department. I agree with the clinical impression, plan, and disposition. (MAYUR PIERCE DO) GUILLERMO TAYLOR APRN May 09, 2021 17:16 MAYUR PIERCE DO May 10, 2021 23:48
[2021-05-09 17:44] LABS: BASO # 0.1 x10^3/uL (0.0-0.2); BASO % 1 % (0-3); EOS # 0.1 x10^3/uL (0.0-0.7); EOS % 1 % (0-3); HEMATOCRIT 45.7 % (36.0-47.0); HEMOGLOBIN 15.6 g/dL (12.0-15.5); LYMPH # 2.3 x10^3/uL (1.0-4.8); LYMPH % 26 % (24-48); MEAN CORPUSCULAR HEMOGLOBIN 30 pg (25-35); MEAN CORPUSCULAR HGB CONC 34 g/dL (31-37); MEAN CORPUSCULAR VOLUME 89 fL (79-100); MONO # 0.4 x10^3/uL (0.0-1.1); MONO % 5 % (0-9); NEUT # 6.1 x10^3/uL (1.8-7.7); NEUT % 67 % (31-73); PLATELET COUNT 289 x10^3/uL (140-400); RED BLOOD COUNT 5.14 x10^6/uL (3.50-5.40); RED CELL DISTRIBUTION WIDTH 12.3 % (11.5-14.5)
[2021-05-09] MEDS ORDERED: fentaNYL PF VIAL 100 MCG/2 ML VIAL IVP ONE ×2 (17:45→19:00)
[2021-05-09] MEDS ORDERED: ONDANSETRON PF 4 MG/2 ML VIAL. IVP ONE (17:45)
[2021-05-09 17:50] LABS: CALCIUM 8.7 mg/dL (8.5-10.1); CREATININE 0.9 mg/dL (0.6-1.0); GFR 66.5; POTASSIUM 3.5 mmol/L (3.5-5.1)
[2021-05-09 17:56] LABS: ALBUMIN 3.5 g/dL (3.4-5.0); ALBUMIN/GLOBULIN RATIO 1.1 (1.0-1.7); TOTAL BILIRUBIN 0.6 mg/dL (0.2-1.0); TOTAL PROTEIN 6.7 g/dL (6.4-8.2)
[2021-05-09] MEDS ORDERED: IOHEXOL 300 MG/ML 100ML VIAL. IV ONE (18:00)
[2021-05-09 19:57] LABS: BILIRUBIN,URINE NEGATIVE (NEG); CLARITY,URINE CLEAR; COLOR,URINE YELLOW; NITRITE,URINE NEGATIVE (NEG); PROTEIN,URINE NEGATIVE (NEG-TRACE); UROBILINOGEN,URINE 0.2 mg/dL (0.2 mg/dL)
[2021-05-09 20:01] LABS: BACTERIA,URINE 0 /HPF (0-FEW); RBC,URINE 0 /HPF (0-2); WBC,URINE 0 /HPF (0-4)
--- NOTE | 2021-05-09 20:16 | RAD ---
CT abdomen pelvis with contrast dated 05/09/2021. COMPARISON: None clinical indication: Abdominal pain and diarrhea TECHNIQUE: Contiguous axial imaging the M pelvis performed after the administration of 75 cc Omnipaque 300. One or more of the following individualized dose reduction techniques were utilized for this examinat ion: 1. Automated exposure control 2. Adjustment of the mA and/or kV according to patient size 3. Use of iterative reconstruction technique FINDINGS: Limited images of lung bases are clear. Heart size within normal limits. No pleural or pericardial ef fusion. Linear bands of increased density at the dependent lower lobes, likely atelectasis. Liver is homogeneous. No focal hepatic mass. Intrahepatic and extra medullary tree are mildly promine nt with scattered pneumobilia. No filling defect. The gallbladder is surgically absent. Spleen is normal in size. Pancreas, adrenal glands and kidneys unremarkable. No hydronephrosis. There is mild wall thickening of the right colon and hepatic flexure. The appendix is normal in calib er. GI tract is otherwise normal in caliber. No lymphadenopathy. No significant ascites. Images of pelvis show nondistended urinary bladder. Uterus and adnexa are unremarkable. No free fluid . No pelvic adenopathy. Bone windows show no acute findings. IMPRESSION: 1. There is mild wall thickening of the right colon and hepatic flexure suggesting mild colitis. Cons ider infectious or inflammatory causes. 2. Mild prominence of the intrahepatic and extra hepatic biliary tree with scattered pneumobilia. Thi s is likely related to prior sphincterotomy. There is no apparent obstructing stone. Correlate with l aboratory values. 3. Normal appendix. Electronically signed by: Mayur Haynes MD (05/09/2021 8:13 PM) [facility]
[2021-05-09] MEDS ORDERED: CIPR500T94 PO (20:42)
[2021-05-09] MEDS ORDERED: DICY10CA3 PO (20:42)
[2021-05-09] MEDS ORDERED: METR-34 PO (20:42)
[2021-05-09 21:00] VITALS: BP 179/101
[2021-05-09] MEDS ORDERED: DICYCLOMINE 20 MG/2 ML VIAL. IM ONE (21:00)
[2021-05-09] MEDS ORDERED: CIPROFLOXACIN HCL 250 MG TABLET. PO ONE (21:00)
[2021-05-09] MEDS ORDERED: metroNIDAZOLE 500 MG TABLET PO ONE (21:00)
== END 2021-05-09 21:10 | disposition home or self-care (01) ==
LOC: ER 16:28
DX: K52.9 Noninfective gastroenteritis and colitis, unspecified (principal); I10 Essential (primary) hypertension; E78.00 Pure hypercholesterolemia, unspecified; F17.200 Nicotine dependence, unspecified, uncomplicated; Z86.73 Personal history of transient ischemic attack (TIA), and cerebral infarction without residual deficits; Z90.49 Acquired absence of other specified parts of digestive tract; Z88.0 Allergy status to penicillin; Z88.1 Allergy status to other antibiotic agents; Z88.8 Allergy status to other drugs, medicaments and biological substances
CPT/HCPCS: 36415; 74177; 80053; 81001; 83690; 84702; 85025; 96361; 96372; 96374; 96375; 96376; 99285; J0500; J2405; J3010; J7030; Q9967

== ENCOUNTER → 2021-06-23 | Outpatient (CLI) | payer OTHER ==
[~2021-06-23] MED LIST changes: +BARIUM SULFATE 60% 355 ML SUSP PO ONE; +CIPR500T94 PO; +DICY10CA3 PO; +METR-34 PO
--- NOTE | 2021-06-23 14:04 | RAD ---
EXAMINATION: DG SMALL BOWEL FOLLOW THROUGH 06/23/2021 8:34 AM HISTORY: 6 weeks of diarrhea COMPARISON: CT abdomen pelvis 05/09/2021 TECHNIQUE: The drink barium contrast and intermittent overhead radiographs of the abdomen were obtain ed as well as intermittent fluoroscopy of the small bowel. FINDINGS: No small bowel obstruction or evidence for stricture. Contrast is likely seen in the ascending colon by 100 minutes and reaches the splenic flexure by 130 minutes. Small bowel is normal in appearance an d disperse normally with palpation. Terminal ileum is grossly normal in appearance. Total fluoroscopic time:1.1 minutes. 7 images IMPRESSION: Normal small bowel follow-through. Electronically signed by: Rajni Mckay MD (06/23/2021 2:01 PM) [id number]
== END ==
LOC: RAD 08:24
PROVIDERS: ATTEND Internal Medicine Gastroenterology
DX: R19.7 Diarrhea, unspecified (principal)
CPT/HCPCS: 74250